=== PATIENT | female | born 1955 | race Caucasian/White ===

== ENCOUNTER → 2017-03-31 10:04 | Outpatient (CLI) | payer OTHER, SELFPAY ==
--- NOTE | 2017-03-31 10:10 | CT_ITS ---
CT sinus wo con CLINICAL INDICATION: ITS.REASON: RECURRENT MAXILLARY SINUSITIS ORDERING PHYSICIAN: Elver James MD PATIENT AGE: 61 years COMPARISON: 02/07/2012 TECHNIQUE:Axial, sagittal, and coronal images are generated and reviewed without contrast FINDINGS: There is mild mucosal thickening of the ethmoid sinuses bilaterally. Mild mucosal thickening involves the roof of the maxillary sinuses on both sides with mild narrowing of the ostiomeatal complexes. 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 There is narrowing of the right nasal canal from the marco bullosa and mild rightward nasal septal deviation inferiorly. The frontal sinuses unremarkable. There is minimal mucosal thickening of the sphenoid sinus posteriorly which could be due to a small retention cyst. No mastoid effusion. No sinus air-fluid level. The orbits are unremarkable The ethmoid opacification was worse on the previous study of 02/07/2012. The TMJs are unremarkable. IMPRESSION: Mild paranasal sinus disease in the ethmoid and maxillary sinuses as detailed above. 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
== END ==
PROVIDERS: Family Provider Internal Medicine Adolescent Medicine; PCP Internal Medicine Adolescent Medicine; Visit Provider Internal Medicine Adolescent Medicine
DX: J01.01 Acute recurrent maxillary sinusitis (principal)
CPT/HCPCS: 70486

== ENCOUNTER → 2017-06-06 16:30 | Outpatient (CLI) | payer OTHER, SELFPAY ==
--- NOTE | 2017-06-06 16:34 | NVE_ITS ---
Venous Exam Indications: 729.81 Swelling of limb. IMPRESSIONS 1. There is no evidence of significant Reflux. 2. No evidence of deep or superficial vein thrombosis involving the left lower extremity Left lower extremity venous duplex evaluation. Doppler flow study including spectral analysis, color and butt scale imaging. Location: Vascular laboratory. Patient status: Outpatient. CRITICAL FINDINGS - Reported to: SHE - Read back and verified. - 06/06/17 - 1645 - NONE Tables: Venous flow and imaging: + +-------+ + Location Overall Flow properties + +-------+ + Left common femoral Patent Normal phasicity; spontaneous; normal augmentation; compressible + +-------+ + Left saphenofemoral junction Patent Compressible + +-------+ + Left profunda femoral Patent Compressible + +-------+ + Left femoral Patent Normal phasicity; spontaneous; normal augmentation; compressible + +-------+ + Left greater saphenous Patent Normal phasicity; spontaneous; normal augmentation; compressible + +-------+ + Left popliteal Patent Normal phasicity; spontaneous; normal augmentation; compressible + +-------+ + Left posterior tibial Patent Compressible + +-------+ + Left peroneal Patent Compressible + +-------+ + Left gastrocnemius Patent Compressible + +-------+ + Left soleal Patent Compressible + +-------+ + (Report amended ) Electronically signed by: Stanley Villa [id number]
== END ==
PROVIDERS: PCP Internal Medicine Adolescent Medicine; Visit Provider Internal Medicine Adolescent Medicine
DX: R60.0 Localized edema (principal)
CPT/HCPCS: 93971

== ENCOUNTER 2017-08-21 13:00 | Outpatient (RCR) | payer OTHER, SELFPAY ==
--- NOTE | 2017-06-28 11:07 | HMH.PTOPWND ---
Rehab Outpt Wound Evaluation Rehab OP Wound Evaluation Start: 06/28/17 10:55 Freq: Status: Active Protocol: Document 06/28/17 10:55 ESTEPHANIA (Rec: 06/28/17 11:07 PHOMIGEL [id number]) Electronically Signed By Jayce Davies, PT 06/28/17 10:55 Subjective/History History History Pt presents with c/o left lower leg edema x 1-2 mos with insidious onset of symptoms. She reports significant pain with mild tingling and soreness when swelling is severe. She had left knee hemiarthroplasty ~ 6 mos ago. She reports edema decreased at night with LE elevation. She reports hx of HTN, DM, Asthma, right TKA 10 yrs ago, and current smoker. She also has recent onset of left lower leg petechiae of insidious onset. Subjective Subjective Currently no c/o pain, but 10/ 10 pain at worst when left LE is swollen. Also pain with stretching of left gastroc. Lymphedema Eval Classification of Lymphedema Secondary Lymphedema Yes Stage of Lymphedema Lymphedema stages Stage I (Pitting edema, reduces w/ elevation, no fibrosis) Skin Changes Dry Skin Yes Pain Scale Pain Scale (0-10) 10 Manual Lymphatic Drainage Treatment Area MLD Treatment Area Left Lower Extremity Wound Problems/Impairments Impairments Problems/Impairmments Palpation Tenderness Impaired Walking Increased Edema Subjective C/O Pain Impaired Self Care/Self Management Prognosis Rehab Potential Good Clinical Impression Consistent with Diagnosis Yes Short Term Goals Number of Weeks 4 Decreased Palpation Tenderness Yes: to min Decrease Subjective C/O Pain Yes: 7/10 at worst Patient to Understand Lymphedema Yes Treatment and Exercises Decrease Girth Measurments by (cm) Yes: by 5 cm Senior Care Goals Number of Weeks 8 Decreased Palpation Tenderness Yes: to none Decrease Subjective C/O Pain Yes: 4/10 at worst Patient to Adhere Lymphedema Precautions Yes Decrease Girth Measurments by (cm) Yes: by 10 cm Outpatient Therapy Plan of Care Treatment Plan May Include Therapeutic Exercise Including Home Yes
--- NOTE | 2017-08-10 11:34 | HMH.RHREAS ---
Rehab Reassessment Rehab OP Re-assessment Start: 08/09/17 14:48 Freq: Status: Active Protocol: Document 08/09/17 14:48 ESTEPHANIA (Rec: 08/09/17 14:57 PHOMIGEL [id number]) Electronically Signed By Jayce Davies, PT 08/09/17 14:48 Rehab Re-assessment Subjective Subjective Pt reports she feels better overall, but edema returned after a short illness and wearing compression socks less . Objective Objective Notes Cicumferential measurements: Left LE total = 277.4 cm, which is -1.3 cm overall. Assessment Progress Assessment Slower Than Expected Assessment Notes Pt has improved considerably with edema, but it does continue to fluctuate. Patient goals met ST,2,3 LT Goals Not Met ST LT,2,3,4 Revised Goals none Plan Plan Continue per intial POC. Frequency of Therapy 2x/wk Duration of therapy 8 wks Time and Billing Re-Eval Time 15 Re-Eval Billing Units 1 PHYSICIAN CERTIFICATION: I certify the specified therapy services for Salima Vu are required, authorized, and reviewed every 30 days.
== END 2017-08-21 13:01 | disposition home or self-care (01) ==
LOC: PT 13:00
PROVIDERS: Family Provider Internal Medicine Adolescent Medicine; PCP Internal Medicine Adolescent Medicine; Visit Provider Internal Medicine Adolescent Medicine
DX: R60.0 Localized edema (principal)
CPT/HCPCS: 97140; 97162; 97164; 97760

== ENCOUNTER → 2017-09-18 12:32 | Outpatient (CLI) | payer OTHER, SELFPAY ==
--- NOTE | 2017-09-18 12:33 | XR_ITS ---
XR foot wt bearing RT 3V HISTORY: ITS.REASON: flat foot ORDERING PHYSICIAN: Stella Tena DPM PATIENT AGE: 62 years COMPARISON: None FINDINGS: There is minimal hallux valgus with first metatarsophalangeal angle of 16 degrees. There is mild pes planus with a Mearys angle of -17 degrees. No fracture or dislocation. Small calcaneal spur is noted at 9 mm. IMPRESSION: Mild hallux valgus and pes planus
--- NOTE | 2017-09-18 12:33 | XR_ITS ---
XR foot wt bearing LT 3V HISTORY: ITS.REASON: flat foot ORDERING PHYSICIAN: Stella Tena DPM PATIENT AGE: 62 years COMPARISON: None FINDINGS: There is mild hallux valgus with first metatarsophalangeal angle of 25 degrees. There is pes planus with Mearys angle of -20 degrees. There is mild superior subluxation of the navicular with mild osteoarthritic changes of the talonavicular joint. There is a small calcaneal spur. IMPRESSION: Hallux valgus with pes planus
== END ==
PROVIDERS: Visit Provider Podiatrist
DX: M21.41 Flat foot [pes planus] (acquired), right foot (principal); M21.42 Flat foot [pes planus] (acquired), left foot
CPT/HCPCS: 73630

== ENCOUNTER → 2017-10-13 10:28 | Outpatient (POV) | payer OTHER, SELFPAY | PROVIDERS: Family Provider Internal Medicine Adolescent Medicine; Visit Provider Podiatrist | DX: Z00.00 Encounter for general adult medical examination without abnormal findings (principal) ==

== ENCOUNTER → 2018-04-02 08:29 | Outpatient (CLI) | payer OTHER, SELFPAY ==
--- NOTE | 2018-04-02 08:38 | CA_ITS ---
PROCEDURE: 2-D M-mode and color Doppler study INDICATIONS FOR THE TEST: Chest pain COPD Heart Murmur+ Tobacco Smoking+ Palpitations Fatigue Syncope Edema Hypertension+Diabetes Mellitus+ Rheumatic Fever SOB BETANCUR Obesity Hyperlipidemia Family History HD Additional History PATIENT INFORMATION HEIGHT: 64 WEIGHT:215 GENDER: Female B/P:132/62 2-D/M-MODE INTERPRETATION: 2-D MEASUREMENTS OBSERVED VALUES IN CMS Right Ventricular Dimension (RVDd) 2.3 Interventricular Septum (Thickness)(IVsd) 1.5 Left Ventricular Internal Dimensions(LVIDd) 4.7 Left Ventricular Posterior Wall (Thickness)(LVPWd) 0.8 Aortic Root 3.5 Aortic Cusp Separation 1.5 Left Atrial Dimensions (LAD) 3.7 2D 1. Left atrium is mildly enlarged, left ventricle is normal size, mild concentric left ventricular hypertrophy, visually estimated ejection fraction 55% with no regional wall motion abnormality. 2. The right atrium and right ventricle are normal size and contractility. 3. The aortic valve is thickened and calcified with mild restriction the leaflet mobility. 4. The mitral and tricuspid valve leaflets are minimally thickened. 5. The pulmonic valve is poorly visualized. 6. No significant pericardial effusion noted. DOPPLER INTERROGATION: The mean gradient across aortic valve is 13 mmHg, consistent with mild aortic stenosis, there is no aortic insufficiency. There is mild mitral and tricuspid regurgitation, tricuspid regurgitation jet velocity is inadequate for calculation of the right ventricular systolic pressure, grade 1 diastolic dysfunction seen with tissue Doppler evidence of raised left atrial pressure. CONCLUSION: 1. Mildly enlarged left atrium, normal left ventricular size, mild concentric left ventricular hypertrophy, visually estimated ejection fraction 55% with no regional wall motion abnormality, grade 1 diastolic dysfunction seen with tissue Doppler evidence of raised left atrial pressure. 2. Thickened and calcified aortic valve with mean gradient across valve of 13 mmHg represents mild aortic stenosis, there is no aortic insufficiency. 3. Mild mitral and tricuspid regurgitation 4. No significant pericardial effusion noted.
--- NOTE | 2018-04-02 09:22 | CT_ITS ---
CT lung screening EXAM: CT LUNG LOW DOSE WO CONTRAST HISTORY: 40 pack-year smoking history, asymptomatic for lung cancer ITS.REASON: CURRENT TOBACCO USE ORDERING PHYSICIAN: Joey Gomez MD PATIENT AGE: 62 years COMPARISON: None TECHNIQUE: The exam was performed on a GE Light Speed [address] scanner using 2.90 mGy CTDI. A low dose helical CT CHEST was performed on a multi-detector scanner. All CT scans at the facility use one or more dose reduction, viz: automated exposure control, ma/kV adjustment per patient size (including targeted exams where dose is matched to indication, i.e. head), or iterative reconstruction technique. The LDCT was performed in a facility that meets the criteria for the screening program. Data regarding this exam was submitted to ACR which is an approved registry. The order for this exam indicates that it came as a result of a lung cancer screening counseling shard decision-making visit that included all the elements required of such a visit including smoking cessation. The radiologist interpreting this exam meets the [facility] criteria for the LDCT lung cancer screening program. The exam is reported using the Lung-RADS classification scale and reported to the ACR registry. NOTE: This study was performed for the specific purposes of lung cancer screening and is not an alternative to diagnostic chest CT. RADIATION DOSE: CTDI vol(CT dose Index-volume) = 2.90mG DLP (Dose Length Product) = 109.56 mGcm FINDINGS: Noncalcified nodules are present which include 6 mm nodule in the right apex axial image #21,4 mm noncalcified nodule right upper lobe anteriorly axial image #29, 8 mm nodule right upper lobe laterally axial image #34, 5 mm right upper lobe anteriorly axial image #49, 5 mm nodule right upper lobe laterally axial image #39. Other smaller nodules noted on the right. 5 mm nodule lower upper lobe centrally along the major fissure. Calcified nodes present in the loli on the right and within the mediastinum. Coronary artery calcifications. Centrilobular emphysema with COPD. Mid thoracic scoliosis convex right IMPRESSION: 1. Lung RADS Category: 4, mildly suspicious with multiple noncalcified pulmonary nodules the largest in the right upper lobe at 8 mm 2. Other findings: Centrilobular emphysema, COPD, coronary artery disease, old granulomatous disease RECOMMENDATIONS: [address] chest without and with contrast
--- NOTE | 2018-04-02 09:22 | MM_ITS ---
MM Dig screening mamm BI w/CAD CAD Screening COMPARISON: Analog mammograms 11/04/2010 and digital mammograms with CAD 04/14/2015 INDICATION: There is a history of breast cancer in patient's mother diagnosed after menopause. There has been a previous cyst aspiration right breast. TECHNIQUE: Standard CC and MLO images were obtained. R2 CAD reviewed. FINDINGS: Moderate fibroglandular densities are seen in the central portions of both breast. There are few benign-appearing microcalcifications in each breast as noted previously. There is a stable low lying node near the axillary tail the right breast. There is no suspicious lesion and there are no suspicious microcalcifications. IMPRESSION: Fibrofatty parenchyma no suspicious lesion seen BI-RADS Category: 2 Benign Finding(s) RECOMMENDED FOLLOW-UP: 1YR - 1 YEAR FOLLOW-UP (A letter has been sent to the patient regarding results of the study.)
== END ==
PROVIDERS: PCP Internal Medicine Adolescent Medicine; Visit Provider Internal Medicine Adolescent Medicine
DX: Z12.31 Encounter for screening mammogram for malignant neoplasm of breast (principal); Z12.2 Encounter for screening for malignant neoplasm of respiratory organs; Z87.891 Personal history of nicotine dependence; R01.1 Cardiac murmur, unspecified; J01.00 Acute maxillary sinusitis, unspecified
CPT/HCPCS: 77067; 93306

== ENCOUNTER → 2018-04-05 10:08 | Outpatient (POV) | payer OTHER, SELFPAY | PROVIDERS: Visit Provider Podiatrist | DX: Z00.00 Encounter for general adult medical examination without abnormal findings (principal) ==

== ENCOUNTER → 2018-04-26 10:04 | Outpatient (POV) | payer OTHER, SELFPAY | PROVIDERS: Visit Provider Podiatrist | DX: Z00.00 Encounter for general adult medical examination without abnormal findings (principal) ==

== ENCOUNTER → 2018-07-13 08:50 | Outpatient (CLI) | payer MEDICARE, OTHER, SELFPAY ==
[2018-07-13 10:15] LABS: Blood Urea Nitrogen 10 mg/dL (7-18); Creatinine,Serum 0.84 mg/dL (0.55-1.02); Estimated Glomerular Filt Rate 68 ml/min (>60); GFR (African American) 82 ML/MIN (>60)
--- NOTE | 2018-07-13 10:17 | CT_ITS ---
CT chest wo/w con HISTORY: Follow-up abnormal chest CT, lung nodule, ITS.REASON: LUNG NODULE ORDERING PHYSICIAN: Elver James MD PATIENT AGE: 63 years COMPARISON: None Technique: Axial images obtained without and with 75 mL Optiray 350. Sagittal, and coronal reformatted images are also generated and reviewed. All CT scans at the facility use one or more dose reduction, viz: automated exposure control, ma/kV adjustment per patient size (including targeted exams where dose is matched to indication, i.e. head), or iterative reconstruction technique. FINDINGS: No mediastinal or hilar mass. Unenhanced images demonstrate coronary artery calcifications . Scattered small Francisco J present in the axilla. Normal heart size. No evidence of aortic aneurysm or dissection or pulmonary embolus. There are centrilobular emphysematous changes COPD. There are scattered noncalcified pulmonary nodules which are similar when compared to the CT scan of 04/02/2018. The largest nodules are in the right upper lobe. There are 2 nodules in the right upper lobe each measuring 6 mm. No new nodules are evident. No effusions or infiltrates. A 6 mm nodule is present in the right middle lobe as well unchanged. No central stranding lesions. No enhancing abnormalities. There are degenerative changes in the thoracic spine with thoracic scoliosis convex right and reversal of the normal lower thoracic lordosis. IMPRESSION: 1. COPD/centrilobular edema 2. Stable bilateral pulmonary nodules measuring up to 6 mm. Previously there was a nodule in the right upper lobe measuring approximately 8 mm now measuring 6 mm. Consider 6-12 month follow-up. 3. Coronary artery calcifications
== END ==
PROVIDERS: PCP Internal Medicine Adolescent Medicine; Visit Provider Internal Medicine Adolescent Medicine
DX: R91.1 Solitary pulmonary nodule (principal)
CPT/HCPCS: 36415; 71270; 82565; 84520; Q9967

== ENCOUNTER 2019-01-17 14:30 | Outpatient (RCR) | payer MEDICARE, OTHER, SELFPAY ==
--- NOTE | 2019-01-03 12:25 | HMH.PTOPEV ---
PT Outpatient Evaluation Rehab PT Outpatient Evaluation Start: 01/03/19 11:02 Freq: Status: Active Protocol: Document 01/03/19 11:35 [email or web address] (Rec: 01/03/19 12:24 PDESEROUX [id number]) Electronically Signed By Omar Chowdhury, PT 01/03/19 11:35 Outpatient Therapy Subjective History Subjective History Pt. is a 63 year old female who presents to outpatient PT for subacute complaints of R shoulder P! with insidious onset for 1 month. Pt. reports, excruciating P! when I lift my arm out to the side. Pt. reports some symptom relief with prescribed anti- inflammatories and steroid shot. Pt. denies having recent diagnostic imaging for current pathology. Pt. also denies numbness/tingling into RUE. Pt. RTMD 1 month from or earlier if need be. Current medications include Centrum, Bystolic, Meloxicam, Hydrochlorothiazide, Fexofenadine HCL, B12, Metformin, Nexium, Myrebetriq, Pravastatin, Hydroxyzine, Escitalopram, Advair, Proair, and Fluticasone Propionate. PMH includes Type II diabetes, HTN, Hypercholesterolemia, L Partial Knee Replacement, R TKA, and bilateral Carpal tunnel syndromes. Chief Complaint Pain Symptom Type Sharp,Stabbing Symptoms Relieved By Rest/Positioning,Ice, Prescription Meds Symptoms Aggravated By Lifting Prior Functional Limitations None Current Functional Limitations Reaching,Lifting,Housework, Dressing,Driving,Sleeping Symptom Description Constant but Variable Level of pain today (0-10) 3 Pain scale - at its best (0-10) 2 Pain scale - at its worst (0-10) 10 Cervical Eval Palpation Cervical Muscles R Upper Trapezius Cervical/Thoracic Palpation Findings Tenderness Flexibility Deficits Upper Trapezius Muscle Length (R) Severe Tightness Levaetor Scapulae Muscle Length (R) Severe Tightness Pectoralis Major Muscle Length (R) Severe Tightness Pectoralis Minor Muscle Length
== END 2019-02-12 15:00 | disposition home or self-care (01) ==
LOC: PT.CARL 14:30
PROVIDERS: PCP Internal Medicine Adolescent Medicine; Visit Provider Nurse Practitioner Family
DX: M75.51 Bursitis of right shoulder (principal)
CPT/HCPCS: 97014; 97033; 97035; 97110; 97140; 97163; G0283

== ENCOUNTER → 2019-03-27 09:53 | Outpatient (CLI) | payer MEDICARE, OTHER, SELFPAY ==
[2019-03-27 10:16] LABS: Blood Urea Nitrogen 12 mg/dL (7-18); Creatinine,Serum 0.75 mg/dL (0.55-1.02); Estimated Glomerular Filt Rate 78 ml/min (>60); GFR (African American) 94 ML/MIN (>60)
--- NOTE | 2019-03-27 10:17 | XR_ITS ---
PROCEDURE: XR DEXA AXIAL SKELETON CLINICAL HISTORY: POST MENOPAUSAL COMPARISON: No exams were available for comparison FINDINGS: The right hip density is 0.799 grams/centimeters sq with a T-score of -0.5. L1-L4 density is 1.21 grams/centimeters sq with a T-score of 1.5. IMPRESSION: Normal bone density Dictated by: Stanley Villa MD 03/27/2019 14:23 Electronically signed by Stanley Villa MD in [place] 03/27/2019 14:23
--- NOTE | 2019-03-27 10:19 | CT_ITS ---
PROCEDURE: CT CHEST WO/W CON CLINCAL INDICATION: PULMONARY NODULES Follow-up lung nodules, current smoker COMPARISON: LUNGSCREEN CT lung screening from 04/02/[address] chest wo/w con from 07/13/2018 TECHNIQUE: IV Contrast: 75ml Optiray 350 Axial images obtained with sagittal and coronal reformats. All CT scans at the facility use one or more dose reduction, viz: automated exposure control, ma/kV adjustment per patient size (including targeted exams where dose is matched to indication, i.e. head), or iterative reconstruction technique. FINDINGS: HEART,AORTA,PULMONARY ARTERIES coronary artery calcifications. No evidence of aortic aneurysm or pulmonary embolus. MEDIASTINAL AND HILAR STRUCTURES: No mediastinal or hilar mass evident. No dominant adenopathy. LUNGS: Paraseptal emphysematous change with COPD and scattered areas of scarring. There are scattered small bilateral pulmonary nodules as previously described. These nodules measure up to 6 mm in the right upper lobe and are not significantly changed. No new nodules are identified. No central obstructing lesions PLEURAL SPACES: No significant effusion. No evidence of pneumothorax. BONY STRUCTURES: S shaped scoliosis of the thoracic spine as before LYMPH NODES: There are scattered small mediastinal and axillary nodes which do not appear significantly changed UPPER ABDOMEN: Unremarkable. ADDITIONAL FINDINGS: No other significant abnormalities. IMPRESSION: Overall stable CT appearance of the chest. Scattered small bilateral pulmonary nodules once again noted not significantly changed. One year follow-up recommended Dictated by: Stanley Villa MD 03/28/2019 09:57 Electronically signed by Stanley Villa MD in [place] 03/28/2019 09:57
== END ==
PROVIDERS: PCP Internal Medicine Adolescent Medicine; Visit Provider Internal Medicine Adolescent Medicine
DX: R91.1 Solitary pulmonary nodule (principal); Z13.820 Encounter for screening for osteoporosis; Z78.0 Asymptomatic menopausal state
CPT/HCPCS: 36415; 71270; 77080; 82565; 84520; Q9967

== ENCOUNTER 2019-07-18 14:00 | Outpatient (RCR) | payer MEDICARE, OTHER, SELFPAY | END 2019-08-13 15:25 | disposition home or self-care (01) | LOC: PT.CARL 14:00 | PROVIDERS: PCP Internal Medicine Adolescent Medicine; Visit Provider Family Medicine Sports Medicine | DX: G57.02 Lesion of sciatic nerve, left lower limb (principal); M19.072 Primary osteoarthritis, left ankle and foot | CPT/HCPCS: 97014; 97110; 97140; 97163; 97164; G0283 ==

== ENCOUNTER → 2019-10-25 18:38 | Outpatient (CLI) | payer MEDICARE, OTHER, SELFPAY | PROVIDERS: PCP Internal Medicine Adolescent Medicine; Visit Provider Physician Assistant | DX: Z03.818 Encounter for observation for suspected exposure to other biological agents ruled out (principal) | CPT/HCPCS: U0003 ==

== ENCOUNTER → 2019-11-26 10:13 | Outpatient (CLI) | payer MEDICARE, OTHER, SELFPAY ==
--- NOTE | 2019-11-26 10:24 | XR_ITS ---
PROCEDURE: XR CHEST PORTABLE CLINICAL HISTORY: COVID OUT PATIENT TESTING COMPARISON: CR CXR CHEST(2 VIEWS-NOT PORTABLE) from 05/19/2016 CR CXR CHEST(2 VIEWS-NOT PORTABLE) from 06/20/2016 CR CXR CHEST(2 VIEWS-NOT PORTABLE) from 11/11/[address] CHEST WO/W CON from 03/27/2019 FINDINGS: The cardiomediastinal silhouette and pulmonary vascularity are within normal limits. Increased density is present in the left CP angle suggesting small effusion. PA and lateral chest may confirm. There is mild midthoracic curvature convex right. IMPRESSION: Possible small left effusion otherwise negative Dictated by: Stanley Villa MD 11/26/2019 11:36 Stanley Villa MD in [place] 11/26/2019 11:36
[2019-11-27 12:07] LABS: Covid-19 Nasal PCR Sendout Lex NOT DETECTED
== END ==
PROVIDERS: PCP Internal Medicine Adolescent Medicine; Visit Provider Internal Medicine Adolescent Medicine
DX: Z20.828 Contact with and (suspected) exposure to other viral communicable diseases (principal)
CPT/HCPCS: 71045; U0004

== ENCOUNTER → 2020-01-11 12:10 | Outpatient (CLI) | payer MEDICARE, OTHER, SELFPAY ==
[2020-01-11 16:06] LABS: Coronavirus 19 IgG Antibody Negative (Negative); Coronavirus 19 IgM Antibody Negative (Negative)
== END ==
PROVIDERS: Visit Provider Internal Medicine Gastroenterology
DX: Z01.818 Encounter for other preprocedural examination (principal); Z12.11 Encounter for screening for malignant neoplasm of colon
CPT/HCPCS: 36415; 86328

== ENCOUNTER 2020-01-13 12:25 | Day surgery (SDC) | payer MEDICARE, OTHER, SELFPAY ==
[2020-01-07 11:56] VITALS: BMI 34.5
[2020-01-13] VITALS (7 sets, daily range): BP systolic 117–136; BP diastolic 59–79; PULSE 82–93; RESP 16–18; TEMP 36.2–36.8; O2SAT 94–99
[2020-01-13 13:29] LABS: POC Glucose,Bedside 119 (70-110)
--- NOTE | 2020-01-13 14:02 | P.PN_ITS ---
[facility] Anesthesia Checklist - Patient Identification Patient Identification: Arm Band - Structural Data Admitted From: Home Planned Operative Procedure/s: colonoscopy Consent for Planned Operative Procedure(s) Verified: Yes Verified Documents: Surgical Consent, History and Physical - NPO Status Verified Time NPO: 00:00 - Additional verifications Anesthesia Reactions: No - Airway Assessment C-Spine Mobility Assessed: Yes (mp2) TMJ Mobility Assessed: Yes Dentition: Good Dentition - Neurological Assessment Level of Consciousness: Awake, Alert - Anesthesia Plan Anesthesia Risk discussed: Yes Anesthesia Plan: Verified ASA Class: III Anesthesia Type: MAC [facility] History I have reviewed the patient's past medical history: Yes Medical History: Reports:: Anxiety, Coronary Artery Disease, Diabetes Mellitus Type 2, Gastroesophageal Reflux Disease(GERD), Hyperlipidemia, Hypertension, Lung Disease (mario) Denies:: Cancer, Diabetes Mellitus Type 1, Internal Pacemaker, MRSA, Seizures *Have you ever received a pneumonia vaccine?: Yes *Have you received a flu vaccine this season?: Yes Anesthesia experience/problems:: nac Laterality Cases: Bilateral: Total Knee Replacement Other Surgeries: Yes: Cardiac Catheterization, Colonoscopy. No: Pacemaker Amputation: No Fractures: Yes (finger) - *Social History Last grade of school completed: Some college Smoking Status: Current every day smoker Tobacco Type: cigarettes # Packs/Day (cigarettes): 1 Alcohol Intake: never Alcohol Intake Frequency:: other Substance Use Type: denies use *Occupational Status:: retired Housing: house Household Members: spouse *Travel in the last 8 weeks: None Family Hx:: Cancer, Heart Attack, Hypertension
--- NOTE | 2020-01-13 14:28 | HMH.PROC ---
[facility] Procedure Note Procedure Note:: Colonoscopy Procedure Report: Colonoscopy with cold snare polypectomy Endoscopist: Gerson Carver II, MD Referring physician: Elver James M.D. Date of Procedure: January 13, 2020 Equipment: Olympus 180 variable stiffness pediatric colonoscope Sedation: MAC sedation Indication: Mrs. Vu is a 64-year-old female who is here for follow-up screening/surveillance colonoscopy. The patient does state that she had a colonoscopy 3 or 4 years ago at which time 6 or 7 colon polyps were removed. She reports no abdominal pain, weight loss, change in her bowel habits or rectal bleeding. She reports no family history of colon cancer. Procedure: Prior to the procedure, a history and physical exam was performed, and patient's medications and allergies were reviewed. The risks, benefits and alternatives of the sedation and procedure were discussed with the patient. All questions were answered and informed consent was obtained. The patient was brought to the procedure room. Patient identification and proposed procedure were verified by the physician and the nurse. The patient was placed in a left lateral decubitus position and the scope was passed under direct vision. Throughout the procedure, the patient's blood pressure, pulse, and oxygen saturations were monitored continuously. The colonoscopy was accomplished without difficulty. The patient tolerated the procedure well. Findings: On digital rectal examination there was normal rectal tone. There were no external hemorrhoids. The colonoscope was introduced through the anal canal to the rectum and advanced to the cecum. The ileocecal valve and appendiceal orifice were identified. The scope was advanced a short distance into the ileum which appeared grossly normal. The scope was then withdrawn into the colon. There was a single 3 to 4 mm rectosigmoid polyp removed via cold snare polypectomy. The remaining cecum, ascending, transverse, descending, sigmoid and rectum were grossly normal. There were no other mucosal abnormalities identified. Upon retroflexion within the rectum there were grade 1 internal hemorrhoids.The preparation was excellent throughout with Lucinda Preparation Score of 9. The cecal time was 10 minutes. Impression: 1. Diminutive rectosigmoid polyp 2. Grade 1 internal hemorrhoids Plan: I will follow up the polyp pathology and recommend repeat colonoscopy again in 7-10 years based upon the polyp histology. I would encourage bulk fiber supplementation on a long-term daily maintenance basis.
== END 2020-01-13 15:20 | disposition home or self-care (01) ==
LOC: OUTP 12:26
PROVIDERS: PCP Internal Medicine Adolescent Medicine; Visit Provider Internal Medicine Gastroenterology
PROC: 0DJD8ZZ Inspection of Lower Intestinal Tract, Via Natural or Artificial Opening Endoscopic (ICD-10-PCS; CPT 45378; principal; 2020-01-13 13:30)
DX: Z12.11 Encounter for screening for malignant neoplasm of colon (principal); Z86.010 Personal history of colon polyps; K63.5 Polyp of colon; K64.0 First degree hemorrhoids; E11.9 Type 2 diabetes mellitus without complications; I10 Essential (primary) hypertension; E78.5 Hyperlipidemia, unspecified; I25.10 Atherosclerotic heart disease of native coronary artery without angina pectoris; G47.33 Obstructive sleep apnea (adult) (pediatric); F41.9 Anxiety disorder, unspecified; F32.9 Major depressive disorder, single episode, unspecified; K21.9 Gastro-esophageal reflux disease without esophagitis
CPT/HCPCS: 45385; 82962; 88305

== ENCOUNTER 2020-02-12 11:07 | Outpatient (CLI) | payer MEDICARE, OTHER, SELFPAY ==
[2020-02-12] VITALS (9 sets, daily range): BP systolic 142–165; BP diastolic 79–93; PULSE 78–82; RESP 16; TEMP 36.6; O2SAT 92–93
== END 2020-02-12 14:15 | disposition home or self-care (01) ==
LOC: COVID.OUT 11:08 → INF 11:14
PROVIDERS: PCP Internal Medicine Adolescent Medicine; Visit Provider Internal Medicine Adolescent Medicine
DX: U07.1 COVID-19 (principal)
CPT/HCPCS: 96365

== ENCOUNTER → 2020-02-21 12:58 | Outpatient (CLI) | payer MEDICARE, OTHER, SELFPAY ==
[2020-02-21 13:37] LABS: Basophils % 0.4 % (0.1-2.0); Eosinophils # 0.3 K/mm3 (0.0-0.4); Eosinophils % 3.1 % (0.1-12.0); Hematocrit 44.9 % (37.0-47.0); Lymphocytes # 3.3 K/mm3 (0.7-4.5); Lymphocytes % 31.7 % (10-50); Mean Corpuscular HGB Conc 33.4 g/dL (31.8-35.4); Mean Corpuscular Hemoglobin 29.4 pg (27.0-31.2); Mean Corpuscular Volume 88.1 fl (81-99); Mean Platelet Volume 7.4 fl (7.4-10.4); Monocytes # 0.6 K/mm3 (0.1-1.0); Monocytes % 5.4 % (1.7-9.3); Neutrophils # 6.1 K/mm3 (1.8-7.8); Neutrophils % 59.5 % (37.0-80.0); Platelet Count 246 K/mm3 (142-424); Red Blood Count 5.09 M/mm3 (4.20-5.40); Red Cell Distribution Width 14.4 % (11.5-17.5); White Blood Count 10.3 K/mm3 (4.8-10.8)
[2020-02-21 13:42] LABS: Chloride 99 mmol/L (98-107); Potassium 3.3 mmoL/L (3.5-5.1); Sodium 138 mmol/L (136-145)
[2020-02-21 13:45] LABS: Alanine Aminotransferase 37 U/L (12-78); Albumin Level 4.2 g/dl (3.5-5.0); Albumin/Globulin Ratio 1.4 (1.1-1.8); Alkaline Phosphatase 85 U/L (38-126); Anion Gap 7.3 mEq/L (5-15); Aspartate Amino Transferase 37 U/L (14-36); Bilirubin,Total 0.8 mg/dl (0.2-1.3); Blood Urea Nitrogen 20 mg/dl (7-17); Calcium 8.9 mg/dl (8.4-10.2); Carbon Dioxide 35 mmol/L (22.0-30.0); Estimated Glomerular Filt Rate 84 ml/min (>60); GFR (African American) 101 ML/MIN (>60); Glucose 127 mg/dl (74-100); Total Protein,Serum 7.2 g/dl (6.3-8.2)
== END ==
PROVIDERS: Visit Provider Nurse Practitioner Family
DX: U07.1 COVID-19 (principal); R53.1 Weakness
CPT/HCPCS: 36415; 80053; 85025

== ENCOUNTER → 2020-03-31 07:53 | Outpatient (CLI) | payer MEDICARE, OTHER, SELFPAY ==
--- NOTE | 2020-03-31 07:58 | CT_ITS ---
PROCEDURE: CT LUNG SCREENING CLINICAL INDICATION: H/O NICOTINE DEPENDENCE Current smoker 35 pack year smoking history Prior 04/02/18 COMPARISON: CT CT CHEST WO/W CON from 03/27/2019 TECHNIQUE: The exam was performed on a [employer] Light Speed [address] scanner using 2.90 mGy CTDI. A low dose helical CT CHEST was performed on a multi-detector scanner. All CT scans at the facility use one or more dose reduction, viz: automated exposure control, ma/kV adjustment per patient size (including targeted exams where dose is matched to indication, i.e. head), or iterative reconstruction technique. The LDCT was performed in a facility that meets the criteria for the screening program. Data regarding this exam was submitted to ACR which is an approved registry. The order for this exam indicates that it came as a result of a lung cancer screening counseling shard decision-making visit that included all the elements required of such a visit including smoking cessation. The radiologist interpreting this exam meets the CMS criteria for the LDCT lung cancer screening program. The exam is reported using the Lung-RADS classification scale and reported to the ACR registry. NOTE: This study was performed for the specific purposes of lung cancer screening and is not an alternative to diagnostic chest CT. RADIATION DOSE: CTDI vol(CT dose Index-volume) = 2.90mG DLP (Dose Length Product) = 104.46 mGcm FINDINGS: Scattered small pulmonary nodules are once again noted overall not significantly changed. No new suspicious nodules identified. Changes of COPD with scattered areas of scarring and bronchial thickening with evidence of old granulomatous disease. OTHER FINDINGS: Coronary artery calcifications. Mitral valve calcifications. Thoracic scoliosis convex right IMPRESSION: Lung-RADS Category 2 Benign Appearance or Behavior Follow-up: Continue annual screening with LDCT in 12 months Dictated by: Stanley Villa MD 04/05/2020 11:07 Stanley Villa MD in [place] 04/05/2020 11:07
== END ==
PROVIDERS: PCP Internal Medicine Adolescent Medicine; Visit Provider Internal Medicine Adolescent Medicine
DX: Z87.891 Personal history of nicotine dependence (principal); Z12.2 Encounter for screening for malignant neoplasm of respiratory organs
CPT/HCPCS: 71271

== ENCOUNTER → 2020-08-07 08:45 | Outpatient (CLI) | payer MEDICARE, OTHER, SELFPAY ==
--- NOTE | 2020-08-07 09:20 | MM_ITS ---
PROCEDURE INFORMATION: Exam: MG Screening 3D Mammography Exam date and time: 08/07/2020 9:20 AM Age: 65 years old Clinical indication: Encounter for screening mammogram for malignant neoplasm of breast TECHNIQUE: Imaging protocol: Screening tomosynthesis and 2D mammography including computer-aided detection (CAD) when performed. COMPARISON: 1. MG SCBI MM Dig screening mamm BI w/CAD 04/02/2018 9:46 AM 2. MG DMSB DIG MAMM-SCREEN ROB 04/14/2015 3:57 PM FINDINGS: MAMMOGRAPHY: Breast composition: The breast tissue is composed of scattered areas of fibroglandular density. Mass: None. Architectural distortion: None. Calcifications: No suspicious calcifications. Asymmetric density: None. Skin thickening: None. Axillary adenopathy: None. IMPRESSION: No mammographic evidence of malignancy. Annual screening is recommended unless otherwise clinically indicated. ASSESSMENT: BI-RADS Category 1: Negative
[2020-08-07 15:40] LABS: Basophils # 0.1 K/mm3 (0-0.2); Basophils % 0.9 % (0.1-2.0); Eosinophils # 0.4 K/mm3 (0.0-0.4); Eosinophils % 5.5 % (0.1-12.0); Hematocrit 43.2 % (37.0-47.0); Hemoglobin 13.7 g/dL (12.2-16.2); Lymphocytes # 2.5 K/mm3 (0.7-4.5); Lymphocytes % 33.8 % (10-50); Mean Corpuscular HGB Conc 31.8 g/dL (31.8-35.4); Mean Corpuscular Hemoglobin 28.4 pg (27.0-31.2); Mean Corpuscular Volume 89.2 fl (81-99); Mean Platelet Volume 7.9 fl (7.4-10.4); Monocytes # 0.6 K/mm3 (0.1-1.0); Monocytes % 7.5 % (1.7-9.3); Neutrophils # 3.9 K/mm3 (1.8-7.8); Neutrophils % 52.3 % (37.0-80.0); Platelet Count 253 K/mm3 (142-424); Red Blood Count 4.84 M/mm3 (4.20-5.40); Red Cell Distribution Width 13.9 % (11.5-17.5); White Blood Count 7.5 K/mm3 (4.8-10.8)
[2020-08-07 15:44] LABS: Alanine Aminotransferase 24 U/L (12-78); Albumin Level 4.2 g/dl (3.5-5.0); Albumin/Globulin Ratio 1.5 (1.1-1.8); Alkaline Phosphatase 79 U/L (38-126); Anion Gap 10.8 mEq/L (5-15); Aspartate Amino Transferase 31 U/L (14-36); Bilirubin,Total 0.6 mg/dl (0.2-1.3); Blood Urea Nitrogen 19 mg/dl (7-17); Calcium 8.9 mg/dl (8.4-10.2); Carbon Dioxide 31 mmol/L (22.0-30.0); Chloride 102 mmol/L (98-107); Chol/HDL Ratio 3.4 (1-3.5); Cholesterol 133 mg/dl (140-200); Estimated Glomerular Filt Rate 83 ml/min (>60); GFR (African American) 101 ML/MIN (>60); Globulin 2.8 g/dL (1.3-3.2); Glucose 107 mg/dl (74-100); HDL Cholesterol 39 mg/dl (40-60); Potassium 3.8 mmoL/L (3.5-5.1); Sodium 140 mmol/L (136-145); Triglycerides 109 mg/dl (30-150); VLDL Cholesterol 22 mg/dL (0-40)
[2020-08-07 15:55] LABS: Direct LDL Cholesterol 80.36 mg/dL (100-129)
[2020-08-07 16:15] LABS: Thyroid Stimulating Hormone 4.17 uIU/mL (0.465-4.68)
[2020-08-07 16:33] LABS: Vitamin B12 967 pg/mL (239-931)
== END ==
PROVIDERS: PCP Internal Medicine Adolescent Medicine; Visit Provider Internal Medicine Adolescent Medicine
DX: Z12.31 Encounter for screening mammogram for malignant neoplasm of breast (principal); E11.9 Type 2 diabetes mellitus without complications; G60.9 Hereditary and idiopathic neuropathy, unspecified; Z79.84 Long term (current) use of oral hypoglycemic drugs
CPT/HCPCS: 36415; 77063; 77067; 80053; 80061; 82607; 84443; 85025

== ENCOUNTER → 2020-11-12 08:38 | Outpatient (CLI) | payer MEDICARE, OTHER, SELFPAY ==
[2020-11-12 09:12] LABS: Basophils % 0.5 % (0.1-2.0); Eosinophils # 0.4 K/mm3 (0.0-0.4); Eosinophils % 5.3 % (0.1-12.0); Hemoglobin 14.5 g/dL (12.2-16.2); Lymphocytes # 2.3 K/mm3 (0.7-4.5); Lymphocytes % 30.6 % (10-50); Mean Corpuscular HGB Conc 33.7 g/dL (31.8-35.4); Mean Corpuscular Hemoglobin 29.8 pg (27.0-31.2); Mean Corpuscular Volume 88.2 fl (81-99); Monocytes # 0.4 K/mm3 (0.1-1.0); Neutrophils # 4.4 K/mm3 (1.8-7.8); Neutrophils % 58.6 % (37.0-80.0); Platelet Count 255 K/mm3 (142-424); Red Blood Count 4.87 M/mm3 (4.20-5.40); Red Cell Distribution Width 14.3 % (11.5-17.5); White Blood Count 7.5 K/mm3 (4.8-10.8)
[2020-11-12 09:31] LABS: Hemoglobin A1C 4.7 % (4.0-6.0)
[2020-11-12 09:33] LABS: Activated Partial Thrombo Time 28.2 seconds (22.8-30.6); Prothrombin Time 10.7 seconds (10.1-12.5)
[2020-11-12 09:37] LABS: Chloride 100 mmol/L (98-107); Potassium 3.9 mmoL/L (3.5-5.1); Sodium 142 mmol/L (136-145)
[2020-11-12 09:40] LABS: Alanine Aminotransferase 20 U/L (12-78); Albumin/Globulin Ratio 1.4 (1.1-1.8); Alkaline Phosphatase 69 U/L (38-126); Anion Gap 13.9 mEq/L (5-15); Aspartate Amino Transferase 30 U/L (14-36); Bilirubin,Total 0.4 mg/dl (0.2-1.3); Blood Urea Nitrogen 16 mg/dl (7-17); Calcium 9.1 mg/dl (8.4-10.2); Carbon Dioxide 32 mmol/L (22.0-30.0); Chol/HDL Ratio 3.4 (1-3.5); Cholesterol 141 mg/dl (140-200); Estimated Glomerular Filt Rate 100 ml/min (>60); GFR (African American) 121 ML/MIN (>60); Globulin 2.8 g/dL (1.3-3.2); Glucose 103 mg/dl (74-100); HDL Cholesterol 42 mg/dl (40-60); Total Protein,Serum 6.8 g/dl (6.3-8.2); Triglycerides 111 mg/dl (30-150); VLDL Cholesterol 22 mg/dL (0-40)
== END ==
PROVIDERS: Visit Provider Internal Medicine Adolescent Medicine
DX: E11.9 Type 2 diabetes mellitus without complications (principal); H21.02 Hyphema, left eye; Z79.84 Long term (current) use of oral hypoglycemic drugs; Z51.81 Encounter for therapeutic drug level monitoring
CPT/HCPCS: 36415; 80053; 80061; 83036; 85025; 85610; 85730

== ENCOUNTER → 2021-02-16 19:36 | Outpatient (CLI) | payer MEDICARE, OTHER, SELFPAY ==
[2021-02-16 20:05] LABS: Basophils # 0.1 K/mm3 (0-0.2); Basophils % 1.2 % (0.1-2.0); Eosinophils # 0.6 K/mm3 (0.0-0.4); Eosinophils % 6.5 % (0.1-12.0); Hematocrit 44.2 % (37.0-47.0); Hemoglobin 14.9 g/dL (12.2-16.2); Lymphocytes # 2.7 K/mm3 (0.7-4.5); Lymphocytes % 30.5 % (10-50); Mean Corpuscular HGB Conc 33.8 g/dL (31.8-35.4); Mean Corpuscular Hemoglobin 30.4 pg (27.0-31.2); Mean Corpuscular Volume 89.9 fl (81-99); Mean Platelet Volume 9.9 fl (7.4-10.4); Monocytes # 0.5 K/mm3 (0.1-1.0); Monocytes % 6.2 % (1.7-9.3); Neutrophils # 4.8 K/mm3 (1.8-7.8); Neutrophils % 55.5 % (37.0-80.0); Platelet Count 278 K/mm3 (142-424); Red Blood Count 4.92 M/mm3 (4.20-5.40); Red Cell Distribution Width 13.6 % (11.5-17.5); White Blood Count 8.7 K/mm3 (4.8-10.8)
[2021-02-16 21:16] LABS: Chloride 100 mmol/L (98-107)
[2021-02-16 21:17] LABS: Potassium 4.1 mmoL/L (3.5-5.1); Sodium 139 mmol/L (136-145)
[2021-02-16 21:19] LABS: Blood Urea Nitrogen 12 mg/dl (7-17); Estimated Glomerular Filt Rate 100 ml/min (>60); GFR (African American) 121 ML/MIN (>60)
[2021-02-16 21:20] LABS: Alanine Aminotransferase 24 U/L (12-78); Albumin Level 4.3 g/dl (3.5-5.0); Albumin/Globulin Ratio 1.7 (1.1-1.8); Alkaline Phosphatase 82 U/L (38-126); Anion Gap 11.1 mEq/L (5-15); Aspartate Amino Transferase 37 U/L (14-36); Bilirubin,Total 0.3 mg/dl (0.2-1.3); Calcium 9.4 mg/dl (8.4-10.2); Carbon Dioxide 32 mmol/L (22.0-30.0); Globulin 2.6 g/dL (1.3-3.2); Glucose 89 mg/dl (74-100); Total Protein,Serum 6.9 g/dl (6.3-8.2)
[2021-02-16 21:30] LABS: Hemoglobin A1C 5.5 % (4.0-6.0)
== END ==
PROVIDERS: Visit Provider Internal Medicine Adolescent Medicine
DX: E11.9 Type 2 diabetes mellitus without complications (principal); G60.9 Hereditary and idiopathic neuropathy, unspecified; Z79.84 Long term (current) use of oral hypoglycemic drugs
CPT/HCPCS: 80053; 83036; 85025

== ENCOUNTER → 2021-06-09 08:23 | Outpatient (CLI) | payer MEDICARE, OTHER, SELFPAY ==
--- NOTE | 2021-06-09 08:26 | CT_ITS ---
FINAL REPORT CLINICAL HISTORY: H/O NICOTINE DEPENDENCE smoker, 1/2 ppd x 40 years off and on. COPD COMPARISON: April 02, 2018 and March 31, 2020 FINDINGS: Low-Dose Chest CT CTDI vol (mGy): 2.90 DLP (mGy-cm): 98.73 Axial images were obtained from the lung apex to the mid abdomen by computed tomography. Low-dose protocol was utilized. FINDINGS: CHEST: There are calcified right paratracheal and right hilar lymph nodes. There is no axillary adenopathy. There is no mediastinal adenopathy. The heart is proper size. There is no pericardial or pleural effusion. Limited images of the upper abdomen are unremarkable. Lung window images demonstrate again noted multiple noncalcified pulmonary nodules in the right upper lobe measuring up to 5 mm and well seen on image 16 of series 3. There is a more peripheral focus also measuring 5 mm well seen on image 29 of series 3. There are other smaller scattered nodules, all of which are stable as compared to 2019. No new masses are seen. IMPRESSION: Redemonstration of stable nodules measuring up to 5 mm in the right upper lobe. Lung RADS category 2. Recommend 12 month follow-up low-dose chest CT. Reviewed, Interpreted and Dictated by Ernie Chun MD Transcribed by Goldie Venegas Authenticated by Ernie Chun MD on 06/09/2021 10:28:59 AM [facility]
== END ==
PROVIDERS: PCP Internal Medicine Adolescent Medicine; Visit Provider Internal Medicine Adolescent Medicine
DX: Z87.891 Personal history of nicotine dependence (principal); Z12.2 Encounter for screening for malignant neoplasm of respiratory organs
CPT/HCPCS: 71271

== ENCOUNTER → 2021-09-21 10:33 | Outpatient (CLI) | payer MEDICARE, OTHER, SELFPAY ==
--- NOTE | 2021-09-21 10:37 | MM_ITS ---
PROCEDURE INFORMATION: Exam: MG Bilateral Screening 3D Mammography Exam date and time: 09/21/2021 10:49 AM Age: 66 years old Clinical indication: Screening examination TECHNIQUE: Imaging protocol: Bilateral Screening tomosynthesis and 2D mammography including computer-aided detection (CAD) when performed. COMPARISON: 1. MG MM DIG SCREENING MAMM BI W/CAD 08/07/2020 9:20 AM 2. MG SCBI MM Dig screening mamm BI w/CAD 04/02/2018 9:46 AM FINDINGS: MAMMOGRAPHY: Breast composition: The breasts are heterogeneously dense, which may obscure small masses. Mass: None. Architectural distortion: None. Calcifications: No suspicious calcifications. Asymmetric density: None. Skin thickening: None. Axillary adenopathy: None. IMPRESSION: No mammographic evidence of malignancy. Annual screening is recommended unless otherwise clinically indicated. ASSESSMENT: BI-RADS Category 1: Negative
== END ==
PROVIDERS: PCP Internal Medicine Adolescent Medicine; Visit Provider Internal Medicine Adolescent Medicine
DX: Z12.31 Encounter for screening mammogram for malignant neoplasm of breast (principal)
CPT/HCPCS: 77063; 77067

== ENCOUNTER → 2021-09-29 14:43 | Outpatient (CLI) | payer MEDICARE, OTHER, SELFPAY ==
--- NOTE | 2021-09-29 14:48 | XR_ITS ---
FINAL REPORT CLINICAL HISTORY: Pt had partial Lt knee replacement x 1-2 yrs ago. Pain @ patellar region x 1 wk since twisting leg FINDINGS: LEFT KNEE 3 views of the left knee were obtained. There is postoperative change from medial hemiarthroplasty. There is no acute fracture. There are osteophytes along the undersurface of the patella. There is some mild sclerosis of the lateral femoral condyle and lateral tibial plateau. There is a minimal joint effusion. IMPRESSION: Minimal joint effusion with no acute bony abnormality. Reviewed, Interpreted and Dictated by Ernie Chun MD Transcribed by Goldie Venegas Authenticated and [facility]
--- NOTE | 2021-09-29 14:48 | XR_ITS ---
FINAL REPORT CLINICAL HISTORY: Pt twisted Lt leg x 1 wk ago, pain @ Lt knee radiating down FINDINGS: LEFT TIBIA FIBULA 2 views were obtained. There are postoperative changes from medial hemiarthroplasty. There is no acute fracture or dislocation. There are small osteophytes along the undersurface of the patella. There is no soft tissue abnormality. IMPRESSION: No acute bony abnormality. Reviewed, Interpreted and Dictated by Ernie Chun MD Transcribed by Goldie Venegas Authenticated and [facility]
--- NOTE | 2021-09-29 14:48 | XR_ITS ---
FINAL REPORT CLINICAL HISTORY: Pt twisted Lt leg x 1 wk ago, pain @ knee radiating down FINDINGS: LEFT ANKLE Three views demonstrate no acute fracture or dislocation. The visualized joint spaces are normally aligned. The mortise is intact. There is a moderate plantar spur. The soft tissues are unremarkable. IMPRESSION: No acute bony abnormality. Reviewed, Interpreted and Dictated by Ernie Chun MD Transcribed by Goldie Venegas Authenticated and [facility]
== END ==
PROVIDERS: PCP Internal Medicine Adolescent Medicine; Visit Provider Internal Medicine Adolescent Medicine
DX: M25.562 Pain in left knee (principal); M21.969 Unspecified acquired deformity of unspecified lower leg; M25.572 Pain in left ankle and joints of left foot
CPT/HCPCS: 73562; 73590; 73610

== ENCOUNTER 2021-10-01 11:38 | Outpatient (RCR) | payer MEDICARE, OTHER, SELFPAY | END 2021-10-01 12:20 | disposition home or self-care (01) | LOC: PT 11:38 | PROVIDERS: Visit Provider Orthopaedic Surgery | DX: M25.572 Pain in left ankle and joints of left foot (principal) | CPT/HCPCS: 97760 ==

== ENCOUNTER → 2021-10-08 12:55 | Outpatient (CLI) | payer MEDICARE, OTHER, SELFPAY ==
--- NOTE | 2021-10-08 12:55 | MR_ITS ---
FINAL REPORT CLINICAL HISTORY: LEFT knee pain, PT STATES SHE TWISTED KNEE WRONG, PARTIAL KNEE REPLACEMENT DONE FINDINGS: Multiplanar MR imaging of the left knee was performed without contrast. There are postoperative changes from medial compartment arthroplasty which obscures much of the detail in this region. There is a tear of the anterior horn and body of the lateral meniscus. The anterior and posterior cruciate ligaments are obscured. The medial collateral ligament is obscured. The lateral collateral ligamentous complex appears intact. The patellar and quadriceps tendons are intact. 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 There are subchondral cysts in the lateral femoral condyle and lateral tibial plateau measuring up to 2.2 cm. There is a cystic mass in the proximal tibia, may represent a large subchondral cyst. Small joint effusion is seen. The musculature is intact. No soft tissue mass or cyst is identified. IMPRESSION: Tear of the anterior horn and body of the lateral meniscus. Postoperative changes as detailed above. Degenerative change and chondromalacia. Reviewed, Interpreted and Dictated by Topher Richardson III, MD Transcribed by Nadja Kim Authenticated and [facility][1]
== END ==
PROVIDERS: PCP Internal Medicine Adolescent Medicine; Visit Provider Orthopaedic Surgery
DX: M25.562 Pain in left knee (principal); Z96.652 Presence of left artificial knee joint
CPT/HCPCS: 73721

== ENCOUNTER → 2022-03-03 20:14 | Outpatient (CLI) | payer MEDICARE, OTHER, SELFPAY | PROVIDERS: PCP Internal Medicine Adolescent Medicine; Visit Provider Specialist | DX: G47.31 Primary central sleep apnea (principal); G47.34 Idiopathic sleep related nonobstructive alveolar hypoventilation | CPT/HCPCS: 95811 ==

== ENCOUNTER → 2022-05-30 12:39 | Outpatient (CLI) | payer MEDICARE, OTHER, SELFPAY ==
[2022-05-30 13:45] VITALS: PULSE 74; PULSE 82
== END ==
PROVIDERS: PCP Internal Medicine Adolescent Medicine; Visit Provider Nurse Practitioner Family
DX: G47.34 Idiopathic sleep related nonobstructive alveolar hypoventilation (principal); Z72.0 Tobacco use
CPT/HCPCS: 94060; 94618; 94640; 94727; 94729

== ENCOUNTER → 2022-06-27 09:18 | Outpatient (CLI) | payer MEDICARE, OTHER, SELFPAY | PROVIDERS: PCP Internal Medicine Adolescent Medicine; Visit Provider Internal Medicine Adolescent Medicine | DX: R01.1 Cardiac murmur, unspecified (principal) | CPT/HCPCS: 93306 ==

== ENCOUNTER → 2022-06-30 15:23 | Outpatient (CLI) | payer MEDICARE, OTHER, SELFPAY ==
--- NOTE | 2022-06-30 15:27 | CT_ITS ---
FINAL REPORT TECHNIQUE: Axial images were obtained from the lung apex to the mid abdomen by computed tomography. This study was performed with techniques to keep radiation doses as low as reasonably achievable (ALARA). Individualized dose reduction techniques using automated exposure control or adjustment of mA and/or kV according to the patient's size were employed. CLINICAL HISTORY: H/O TOBACCO USE, smokes less than 1 pk per day for 40+ yrs, has COPD, exposed to second hand smoke COMPARISON: 06/09/2021 and 03/31/2020 FINDINGS: CHEST CT LOW DOSE CTDI vol (mGy): 2.90 DLP (mGy-cm): 103.68 There is no axillary adenopathy. There is no hilar or mediastinal adenopathy. The heart is normal in size. There is no pericardial or pleural effusion. Again identified are multiple small bilateral pulmonary nodules measuring up to 5 mm. There is a stable right upper lobe nodule measuring 5 mm well seen on image 31. No new mass or nodule is identified. Limited images of the upper abdomen are unremarkable. IMPRESSION: Stable nodules as detailed above. Lung RADS category 1. Recommend 12 month follow-up low-dose chest CT. Reviewed, Interpreted and Dictated by Topher Richardson III, MD Transcribed by Nadja Kim Authenticated and [facility]
== END ==
PROVIDERS: PCP Internal Medicine Adolescent Medicine; Visit Provider Internal Medicine Adolescent Medicine
DX: Z87.891 Personal history of nicotine dependence (principal); Z12.2 Encounter for screening for malignant neoplasm of respiratory organs
CPT/HCPCS: 71271

== ENCOUNTER 2022-08-25 11:00 | Outpatient (RCR) | payer MEDICARE, OTHER, SELFPAY | END 2022-09-21 17:40 | disposition home or self-care (01) | LOC: PT 11:00 | PROVIDERS: PCP Internal Medicine Adolescent Medicine; Visit Provider Orthopaedic Surgery | DX: M25.562 Pain in left knee (principal); Z96.652 Presence of left artificial knee joint | CPT/HCPCS: 94762; 97010; 97014; 97110; 97116; 97140; 97163; 97164; 97530; G0283 ==

== ENCOUNTER → 2022-10-18 12:50 | Outpatient (CLI) | payer MEDICARE, OTHER, SELFPAY ==
--- NOTE | 2022-10-18 12:54 | MM_ITS ---
PROCEDURE INFORMATION: Exam: MG Bilateral Screening 3D Mammography Exam date and time: 10/18/2022 12:51 PM Age: 67 years old Clinical indication: Screening examination; Family history of breast cancer in mother; Mother's age: 50 years TECHNIQUE: Imaging protocol: Bilateral Screening tomosynthesis and 2D mammography including computer-aided detection (CAD) when performed. COMPARISON: 1. MG MM DIG SCREENING MAMM BI W/CAD 09/21/2021 10:49 AM 2. MG MM DIG SCREENING MAMM BI W/CAD 08/07/2020 9:20 AM 3. MG SCBI MM Dig screening mamm BI w/CAD 04/02/2018 9:46 AM 4. MG DMSB DIG MAMM-SCREEN ROB 04/14/2015 3:57 PM FINDINGS: MAMMOGRAPHY: Breast composition: The breasts are heterogeneously dense, which may obscure small masses. Mass: None. Architectural distortion: None. Calcifications: No suspicious calcifications. Asymmetric density: None. Skin thickening: None. Axillary adenopathy: Stable borderline dense, prominent, bilateral axillary lymph nodes since 2015. IMPRESSION: No mammographic evidence of malignancy. Annual screening is recommended unless otherwise clinically indicated. ASSESSMENT: BI-RADS Category 2: Benign
== END ==
PROVIDERS: PCP Internal Medicine Adolescent Medicine; Visit Provider Internal Medicine Adolescent Medicine
DX: Z12.31 Encounter for screening mammogram for malignant neoplasm of breast (principal)
CPT/HCPCS: 77063; 77067

== ENCOUNTER 2023-07-03 12:43 | Outpatient (CLI) | payer MEDICARE, OTHER, SELFPAY ==
[2023-07-03 13:40] VITALS: PULSE 76; PULSE 80
[2023-07-03] MEDS: ALBUTEROL 0.083% 2.5 MG/3 ML NEB IH (13:40)
--- NOTE | 2023-07-03 14:08 | CT_ITS ---
FINAL REPORT TECHNIQUE: Thin section axial images were obtained from the lung apices to the upper abdomen by computed tomography. Reformatted images were obtained and reviewed. This study was performed with techniques to keep radiation doses al low as reasonably achievable (ALARA). Individualized dose reduction techniques using automated exposure control or adjustment of mA and/or kV according to the patient's size were employed. CLINICAL HISTORY: lung cancer screening current smoker 1/2ppd x50 years COMPARISON: 06/30/2022 FINDINGS: CHEST CT LOW DOSE 68-year-old female, current smoker, [id number] history. CTDI vol (mGy): 2.9 DLP (mGy-cm): 99.77 There is no axillary adenopathy. There is no mediastinal or hilar mass or adenopathy. The heart is normal in size. There is no pericardial or pleural effusion. There is mild emphysema and mild pulmonary scarring. Lung window images demonstrate multiple nodules as seen on the prior CT examination of 2022. There is a 5 mm right upper lobe nodule, seen on image #20 of series 4, stable. There is a 4 mm anterior right upper lobe nodule, best seen in image #29 of series 4, also stable. There is a peripheral right upper lobe 5 mm nodule, seen on image #34 of series 4, also stable. There is a 4 mm right middle lobe nodule seen on image #50 of series 4, again stable.. Limited images of the upper abdomen are unremarkable. IMPRESSION: Lung-RADS category 2. Recommend 12 month follow up low dose chest CT. Reviewed, Interpreted and Dictated by Ernie Chun MD Transcribed by Felisha Fan Authenticated and [facility]
== END 2023-07-03 23:59 | disposition home or self-care (01) ==
LOC: RT 12:43
PROVIDERS: PCP Internal Medicine Adolescent Medicine; Visit Provider Internal Medicine Pulmonary Disease
DX: F17.210 Nicotine dependence, cigarettes, uncomplicated (principal); Z12.2 Encounter for screening for malignant neoplasm of respiratory organs; R06.09 Other forms of dyspnea
CPT/HCPCS: 71271; 94060; 94640; 94726; 94729

== ENCOUNTER 2023-09-07 14:14 | Outpatient (CLI) | payer MEDICARE, OTHER, SELFPAY | END 2023-09-07 23:59 | disposition home or self-care (01) | LOC: RT 14:15 | PROVIDERS: PCP Internal Medicine Adolescent Medicine; Visit Provider Internal Medicine Pulmonary Disease | DX: J43.2 Centrilobular emphysema (principal); G47.34 Idiopathic sleep related nonobstructive alveolar hypoventilation; F17.210 Nicotine dependence, cigarettes, uncomplicated | CPT/HCPCS: 94762 ==

== ENCOUNTER 2024-05-29 13:18 | Outpatient (CLI) | payer MEDICARE, OTHER, SELFPAY ==
--- NOTE | 2024-05-29 13:24 | MM_ITS ---
PROCEDURE INFORMATION: Exam: MG Bilateral Screening 3D Mammography Exam date and time: 05/29/2024 1:40 PM Age: 68 years old Clinical indication: Screening examination; Family history of breast cancer in mother; Mother's age: 50 years TECHNIQUE: Imaging protocol: Bilateral Screening tomosynthesis and 2D mammography including computer-aided detection (CAD) when performed. COMPARISON: 1. MG MM DIG SCREENING MAMM BI W/CAD 10/18/2022 12:51 PM 2. MG MM DIG SCREENING MAMM BI W/CAD 09/21/2021 10:49 AM 3. MG MM DIG SCREENING MAMM BI W/CAD 08/07/2020 9:20 AM 4. MG SCBI MM Dig screening mamm BI w/CAD 04/02/2018 9:46 AM FINDINGS: MAMMOGRAPHY: Breast composition: The breasts are heterogeneously dense, which may obscure small masses. Mass: None. Architectural distortion: None. Calcifications: No suspicious calcifications. Asymmetric density: None. Skin thickening: None. Axillary adenopathy: None. IMPRESSION: No mammographic evidence of malignancy. Annual screening is recommended unless otherwise clinically indicated. ASSESSMENT: BI-RADS Category 1: Negative.
== END 2024-05-29 23:59 | disposition home or self-care (01) ==
LOC: RAD 13:19
PROVIDERS: PCP Internal Medicine Adolescent Medicine; Visit Provider Internal Medicine Adolescent Medicine
DX: Z12.31 Encounter for screening mammogram for malignant neoplasm of breast (principal)
CPT/HCPCS: 77063; 77067

== ENCOUNTER 2024-07-04 15:12 | Outpatient (CLI) | payer MEDICARE, OTHER, SELFPAY ==
--- NOTE | 2024-07-04 15:12 | CT_ITS ---
FINAL REPORT TECHNIQUE: Thin section axial images were obtained from the lung apices to the upper abdomen by computed tomography. Reformatted images were obtained and reviewed. This study was performed with techniques to keep radiation doses al low as reasonably achievable (ALARA). Individualized dose reduction techniques using automated exposure control or adjustment of mA and/or kV according to the patient's size were employed. CLINICAL HISTORY: lung cancer screening CURRENT SMOKER, 1/2 PPD X 45YEARS COMPARISON: 07/03/2023 FINDINGS: CHEST CT LOW DOSE 69-year-old female, current smoker, [id number] history. CTDI vol (mGy): 2.90 DLP (mGy-cm): 109.68 There is no axillary adenopathy. There is no mediastinal or hilar mass or adenopathy. The heart is normal in size. There is no pericardial or pleural effusion. Lung window images demonstrate multiple nodules, also seen on the prior exam of 07/03/2023. The superior right upper lobe nodule, 4 mm in size, best seen on image #20 of series 4, is stable. A 4 mm anterior right upper lobe nodule, best seen on image #32 of series 4, is stable. There is a 5 mm peripheral right upper lobe nodule seen on image #36 of series 4, also stable. A 4 mm right middle lobe nodule best seen on image #52 of series 4, is once again stable. No new nodules are identified. Limited images of the upper abdomen are unremarkable. IMPRESSION: Lung-RADS category 2. Recommend 12 month follow up low dose chest CT. Reviewed, Interpreted and Dictated by Ernie Chun MD Transcribed by Felisha Fan Authenticated and . [facility]
--- OUTSIDE RECORDS SUMMARY | 2024-07-04 15:14 | XMS_ITS | Clinical Summary ---
Author Organization [facility] Address [address] [place] [address] Phone Care Team Providers Care Service Order Clerk Name Role Phone SHE AUSTIN, LUCA Primary Care Provider [phone] Elham AUSTIN, Jesu Eduardo Unavailable [phone] Reason for Visit and Chief Complaint [Patient Encounter] Problems Includes: Problems addressed during this encounter and other active Problems All Visits Onset Date Resolved Date Provider Condition S tatus Joint Pain in the Left Knee 11/11/2021 Douglas Stanley PA-C Active Last Documented On 2 10:33AM ; [facility] Foot Pain (Soft Tissue) 11/06/2020 Eloy Krause od DPM Active Last Documented On 1 1:14PM ; [facility] Plan of Treatment No Plan of Treatment Recorded Assessments Includes: Assessments from this encounter No Assessments Recorded Medical Equipment - Implanted Devices Includes: Current Devices No Medical Equipment Recorded Medications Includes: Medications discussed during this encounter and other current Medications New / Renewed during this visit Jesu Lizarraga MD on 06/29/2022 traMADol HCl 50 MG Oral Tablet Provider: Jesu schaefer MD 5 day supply: 50 tablet, 0 refills Diagnosis: 1-2 po q 4-6h Pharmacy: [facility] - [address], [facility], [id number] - Last Documented On 3 10:47AM By Jerry Lizarraga ; [facility] Ondansetron HCl 4 MG Oral Tablet Provider: Jesu Lizarraga MD 5 day supply: 15 tablet, 0 refills Diagnosis: [id number] Pharmacy: [facility] [address], [facility], [id number] - Last Documented On 3 10:47AM By Jerry Lizarraag ; [facility] Meloxicam 15 MG Oral Tablet Provider: Jesu schaefer MD 30 day supply: 30 tablet, 0 refills Diagnosis: once a day Pharmacy: [facility] - [facility] [address], [facility], [id number] - Last Documented On 3 10:46AM By Jerry Lizarraga ; [facility] Colace 100 MG Oral Capsule Provider: Jesu schaefer MD 30 day supply: 60 capsule, 2 refills Diagnosis: 1-2 tabs daily Pharmacy: [facility] [place] [address], [facility], [phone] - Last Documented On 3 10:46AM By Jerry Lizarraga ; [facility] Cefadroxil 500 MG Oral Capsule Provider: Jesu Lizarraga MD 3 day supply: 6 capsule, 0 refills Diagnosis: twice a day Pharmacy: [facility] [place] [address], [facility], [id number] - Last Documented On 3 10:46AM By Jerry Lizarraga ; [facility] Acetaminophen 500 MG Oral Tablet Provider: Jesu Lizarraga MD 30 day supply: 180 tablet, 0 refills Diagnosis: 2 three times a day Pharmacy: [facility] - [facility] [address], [facility], [id number] - Last Documented On 3 10:46AM By Jerry Lizarraga ; [facility] oxyCODONE HCl 5 MG Oral Tablet Provider: Jesu schaefer MD 5 day supply: 50 tablet, 0 refills Diagnosis: 1-2 po q 4-6h Pharmacy: [facility] - [facility] [place] [address], [facility], [id number] - Last Documented On 3 10:47AM By Jerry Lizarraga ; [facility] Current Medications (continue as prescribed) Fexofenadine HCl 180 MG Oral Tablet 02/03/2022 Provi constanza: Diagnosis: Last Documented On 2 4:26PM By Sarahi Frank ; [facility] B6 Natural 100 MG Oral Tablet 02/03/2022 Provider: Diagnosis: Last Documented On 2 4:27PM By Sarahi Frank ; [facility] Vitamin B12 100 MCG Oral Tablet 02/03/2022 Provider: Diagnosis: Last Documented On 2 4:27PM By Sarahi Frank ; [facility] Fluticasone Propionate 50 MC G/ACT Nasal Suspension 01/25/2022 Provider: LUCA NOWAK MD Diagnosis: Last Documented On 2 4:28PM By Sarahi Frank ; [facility] hydrOXYzine Pamoate 25 MG Oral Capsule 01/21/2022 Pr ovider: LUAC NOWAK MD Diagnosis: Last Documented On 2 4:26PM By Sarahi Frank ; [facility] Meloxicam 7.5 MG Oral Tablet 01/20/2022 Provider: LUCA NOWAK MD Diagnosis: Last Documented On 2 4:26PM By Sarahi Frank ; [facility] Viibryd 40 MG Oral Tablet 01/20/2022 Provider: [facility] NOW[facility] MD Diagnosis: Last Documented On 2 4:26PM By Sarahi Frank ; [facility] diazePAM 5 MG Oral Tablet 01/13/2022 Provider: [facility] NOWAK MD Diagnosis: Last Documented On 2 10:31AM By Sarahi Frank ; [facility] Pravastatin Sodium 40 MG Oral Tablet 01/11/2022 Prov ider: LUCA NOWAK MD Diagnosis: Last Documented On 2 4:26PM By Sarahi Frank ; [facility] metFORMIN HCl 500 MG Oral Tablet 01/05/2022 Provider : LUCA NOWAK MD Diagnosis: Last Documented On 2 4:26PM By Sarahi Frank ; [facility] Anoro Ellipta 62.5-25 MCG/AC T Inhalation Aerosol Powder Breath Activated 01/04/2022 Provider: LUCA NOWAK MD Diagnosis: Last Documented On 2 4:28PM By Sarahi Frank ; [facility] Myrbetriq 50 MG Oral Tablet Extended Release 24 Hour 11/29/2021 Provider: LUCA NOWAK MD Diagnosis: Last Documented On 2 4:26PM By Sarahi Frank ; [facility] Jardiance 25 MG Oral Tablet 11/29/2021 Provider: LUCA NOWAK MD Diagnosis: Last Documented On 2 4:26PM By Sarahi Frank ; [facility] Medications Administered Includes: Administered Medications from this encounter No Administered Medications Recorded Results Includes: Results discussed during this encounter No Results Recorded For Specified Dates History of Present Illness Includes: History of Present Illness from this encounter No History of Present Illness Recorded Social History No Social History Recorded - Smoking Status Unknown Medical History Includes: Medical History addressed during this encounter No Medical History Recorded Family History Includes: Family History addressed during this encounter No Family History Recorded Review of Systems Includes: Review of Systems from this encounter No Review of Systems Recorded Mental Status Includes: Mental Status from this encounter No Mental Status Recorded Functional Status Includes: Functional Status from this encounter No Functional Status Recorded Physical Exam Includes: Physical Exam from this encounter No Physical Exam Recorded Allergies Includes: Active Allergies Substance Type Reaction Onset Date Resolved Date Statu s Clindamycin HCl Allergy 2020 Act cesilia Last Documented On 4 1:22PM ; [facility] Encounters Encounter Provider Location Date Check-In Time Check-Out Time Diagnosis [Patient Encounter] Jesu Lizarraga MD 3 10:34AM 11:59PM Insurance Includes: Active Insurance Policies Plan Name Member ID Group # Subscriber Relationship Effect cesilia Dates 1 - Medicare Part B [facility] [id number] Salima O Stone Self 05/18/2018 - Unknown 2 - [employer] [id number] HoraceDavid K Clinical Notes Includes: Clinical Notes from this encounter No Clinical Notes Recorded
--- OUTSIDE RECORDS SUMMARY | 2024-07-04 15:14 | XMS_ITS ---
Author Organization [facility] Address [address] [place] [address] Phone Care Team Providers Care Eeg Tech Name Role Phone SHE AUSTIN, LUCA Primary Care Provider [phone] AUSTIN, Jesu Eduardo Unavailable [phone] Problems Includes: Active, inactive, and resolved Problems All Visits Onset Date Resolved Date Provider Condition S tatus Joint Pain in the Left Knee 11/11/2021 Douglas Stanley PA-C Active Last Documented On 2 10:33AM ; [facility] Foot Pain (Soft Tissue) 11/06/2020 Eloy Krause od DPM Active Last Documented On 1 1:14PM ; [facility] Plan of Treatment Findings Encounter Date Patient screened for future fall risk: documentation of any fall with injury in past year Follow Up with Richie Verma PA-C 09/05/2023 Last Documented On 4 2:10PM ; [facility] Instructions to patient Intervention and counseling on cessation of tobacco use Last Documented On 4 1:23PM ; [facility] Lose weight Last Documented On 4 1:23PM ; [facility] Intervention and counseling on cessation of tobacco use Last Documented On 3 1:04PM ; [facility] Lose weight Last Documented On 3 12:58PM ; [facility] Intervention and counseling on cessation of tobacco use Last Documented On 3 10:03AM ; [facility] Lose weight Last Documented On 3 10:03AM ; [facility] Intervention and counseling on cessation of tobacco use Last Documented On 2 10:35AM ; [facility] Lose weight Last Documented On 2 10:35AM ; [facility] Intervention and counseling on cessation of tobacco use Last Documented On 2 11:05AM ; [facility] Lose weight Last Documented On 2 10:34AM ; [facility] Lose weight Last Documented On 1 1:14PM ; [facility] Lose weight Last Documented On 1 3:39PM ; [facility] Intervention and counseling on cessation of tobacco use Last Documented On 7 1:18PM ; [facility] Lose weight Last Documented On 7 1:18PM ; [facility] Instructions for patient See PCP for BP and wegiht Last Documented On 7 9:20AM ; [facility] Intervention and counseling on cessation of tobacco use Last Documented On 7 9:20AM ; [facility] Lose weight Last Documented On 7 9:20AM ; [facility] Education and Decision Aids were provided during visit for: Health seminar on smoking ce ssation Last Documented On 7 1:18PM ; [facility] Health seminar on smoking ce ssation Last Documented On 7 9:20AM ; [facility] Assessments Includes: Assessments for all patient encounters Findings Encounter Date Overweight Follow Up with Richie Verma PA-C 09/05/2023 Last Documented On 4 2:10PM ; [facility] Instructions Includes: Instructions for all patient encounters Instructions to patient Intervention and counseling on cessation of tobacco use Last Documented On 4 1:23PM ; [facility] Lose weight Last Documented On 4 1:23PM ; [facility] Intervention and counseling on cessation of tobacco use Last Documented On 3 1:04PM ; [facility] Lose weight Last Documented On 3 12:58PM ; [facility] Intervention and counseling on cessation of tobacco use Last Documented On 3 10:03AM ; [facility] Lose weight Last Documented On 3 10:03AM ; [facility] Intervention and counseling on cessation of tobacco use Last Documented On 2 10:35AM ; [facility] Lose weight Last Documented On 2 10:35AM ; [facility] Intervention and counseling on cessation of tobacco use Last Documented On 2 11:05AM ; [facility] Lose weight Last Documented On 2 10:34AM ; [facility] Lose weight Last Documented On 1 1:14PM ; [facility] Lose weight Last Documented On 1 3:39PM ; [facility] Intervention and counseling on cessation of tobacco use Last Documented On 7 1:18PM ; [facility] Lose weight Last Documented On 7 1:18PM ; [facility] Instructions for patient See PCP for BP and wegiht Last Documented On 7 9:20AM ; [facility] Intervention and counseling on cessation of tobacco use Last Documented On 7 9:20AM ; [facility] Lose weight Last Documented On 7 9:20AM ; [facility] Education and Decision Aids were provided during visit for: Health seminar on smoking ce ssation Last Documented On 7 1:18PM ; [facility] Health seminar on smoking ce ssation Last Documented On 7 9:20AM ; [facility] Medical Equipment - Implanted Devices Includes: Current and historical Devices No Medical Equipment Recorded Medications Includes: Current and historical Medications Current Medications (continue as prescribed) Fexofenadine HCl 180 MG Oral Tablet 02/03/2022 Provi constanza: Diagnosis: Last Documented On 2 4:26PM By Sarahi Frank ; [facility] B6 Natural 100 MG Oral Tablet 02/03/2022 Provider: Diagnosis: Last Documented On 2 4:27PM By Sarahi Frank ; [facility] Vitamin B12 100 MCG Oral Tablet 02/03/2022 Provider: Diagnosis: Last Documented On 2 4:27PM By Sarahi Frank ; [facility] Fluticasone Propionate 50 MC G/ACT Nasal Suspension 01/25/2022 Provider: LUCA NOWAK MD Diagnosis: Last Documented On 2 4:28PM By Sarahi Frank ; [facility] hydrOXYzine Pamoate 25 MG Oral Capsule 01/21/2022 Pr ovider: LUCA NOWAK MD Diagnosis: Last Documented On 2 4:26PM By Sarahi Frank ; [facility] Meloxicam 7.5 MG Oral Tablet 01/20/2022 Provider: LUCA NOWAK MD Diagnosis: Last Documented On 2 4:26PM By Sarahi Frank ; [facility] Viibryd 40 MG Oral Tablet 01/20/2022 Provider: [facility] NOWAK MD Diagnosis: Last Documented On 2 4:26PM By Sarahi Frank ; [facility] diazePAM 5 MG Oral Tablet 01/13/2022 Provider: [facility] NOWAK MD Diagnosis: Last Documented On 2 10:31AM By Sarahi Frank ; [facility] Pravastatin Sodium 40 MG Oral Tablet 01/11/2022 Prov ider: LUCA NOWAK MD Diagnosis: Last Documented On 2 4:26PM By Sarahi Frank ; [facility] metFORMIN HCl 500 MG Oral Tablet 01/05/2022 Provider : LUCA NOWAK MD Diagnosis: Last Documented On 2 4:26PM By Sarahi Frank ; [facility] Anoro Ellipta 62.5-25 MCG/AC T Inhalation Aerosol Powder Breath Activated 01/04/2022 Provider: LUCA NOWAK MD Diagnosis: Last Documented On 2 4:28PM By Sarahi Frank ; [facility] Myrbetriq 50 MG Oral Tablet Extended Release 24 Hour 11/29/2021 Provider: LUCA NOWAK MD Diagnosis: Last Documented On 2 4:26PM By Sarahi Frank ; [facility] Jardiance 25 MG Oral Tablet 11/29/2021 Provider: LUCA NOWAK MD Diagnosis: Last Documented On 2 4:26PM By Sarahi Frank ; [facility] Past Medications on file Aspirin 81 MG Oral Tablet Delayed Release 07/01/2022 - 08/12/2022 Provider: Jesu Lizarraga MD Diagnosis: twice a day Last Documented On 3 11:10AM By Jerry Lizarraga ; [facility] traMADol HCl 50 MG Oral Tablet 06/29/2022 - 07/04/2022 Provider: Jesu aviles MD Diagnosis: 1-2 po q 4-6h Last Documented On 3 10:47AM By Jerry Lizarraga ; [facility] Ondansetron HCl 4 MG Oral Tablet 06/29/2022 - 07/04/2022 Provider: Jesu Lizarraga MD Diagnosis: [id number] Last Documented On 3 10:47AM By Jerry Lizarraga ; [facility] Meloxicam 15 MG Oral Tablet 06/29/2022 - 07/29/2022 Provider: Jesu aviles MD Diagnosis: once a day Last Documented On 3 10:46AM By Jerry Lizarraga ; [facility] Colace 100 MG Oral Capsule 06/29/2022 - 09/27/2022 Provider: Jesu aviles MD Diagnosis: 1-2 tabs daily Last Documented On 3 10:46AM By Jerry Lizarraga ; [facility] Cefadroxil 500 MG Oral Capsule 06/29/2022 - 07/02/2022 Provider: Jesu aviles MD Diagnosis: twice a day Last Documented On 3 10:46AM By Jerry Lizarraga ; [facility] Acetaminophen 500 MG Oral Tablet 06/29/2022 - 07/29/2022 Provider: Jesu Lizarraga MD Diagnosis: 2 three times a day Last Documented On 3 10:46AM By Jerry Lizarraga ; [facility] oxyCODONE HCl 5 MG Oral Tablet 06/29/2022 - 07/04/2022 Provider: Jesu aviles MD Diagnosis: 1-2 po q 4-6h Last Documented On 3 10:47AM By Jerry Lizarraga ; [facility] Mupirocin 2% External Ointment 05/27/2022 - 09/05/2023 Provider: Jesu aviles MD Diagnosis: three times a day Apply to n ostrils 3 time a day 5 days prior to surgery. Last Documented On 4 1:38PM By Dee Estes ; [facility] Bystolic 5 MG Oral Tablet 02/01/2021 - 02/03/2022 Prov ider: LUCA NOWAK MD Diagnosis: Last Documented On 2 4:26PM By Sarahi Frank ; [facility] Anoro Ellipta 62.5-25 MCG/AC T Inhalation Aerosol Powder Breath Activated 02/01/2021 - 02/03/2022 Provider: LUCA Marie Diagnosis: Last Documented On 2 4:28PM By Sarahi Frank ; [facility] Anoro Ellipta 62.5-25 MCG/IN H Inhalation Aerosol Powder Breath Activated 09/15/2020 - 02/03/2022 Provider: LUCA Marie Diagnosis: Last Documented On 2 10:31AM By Sarahi Frank ; [facility] NexIUM 20 MG Oral Capsule Delayed Release 2020 - 02/03/2022 Provider: Diagnosis: Last Documented On 2 4:26PM By Sarahi Frank ; [facility] Myrbetriq 50 MG Oral Tablet Extended Release 24 Hour 2020 - 02/03/2022 Provider: Diagnosis: Last Documented On 2 4:26PM By Sarahi Frank ; [facility] Fluticasone Propionate 50 MC G/ACT Nasal Suspension 2020 - 02/03/2022 Provider: Diagnosis: Last Documented On 2 4:26PM By Sarahi Frank ; [facility] ProAir HFA 108 (90 Base) MCG /ACT Inhalation Aerosol Solution 2020 - 02/03/2022 Provider: Diagnosis: Last Documented On 2 4:26PM By Sarahi Frank ; [facility] Advair Diskus 250-50 MCG/DOS E Inhalation Aerosol Powder Breath Activated 2020 - 11/06/2020 Provider: Diagnosis: Last Documented On 1 1:34PM By Marta Olguin ; [facility] hydrOXYzine HCl 25 MG Oral Tablet 2020 - 022 Provider: Diagnosis: Last Documented On 2 4:26PM By Sarahi Frank ; [facility] Pravastatin Sodium 40 MG Oral Tablet 2020 - 01/18 Provider: Diagnosis: Last Documented On 2 4:26PM By Sarahi Frank ; [facility] metFORMIN HCl 500 MG Oral Tablet 2020 - 02/04/20 Provider: Diagnosis: Last Documented On 2 4:26PM By Sarahi Frank ; [facility] Centrum Silver Oral Tablet 2020 - 02/03/2022 Pro vider: Diagnosis: Last Documented On 2 4:26PM By Sarahi Frank ; [facility] Bystolic 5 MG Oral Tablet 2020 - 02/03/2022 Prov ider: Diagnosis: Last Documented On 2 4:26PM By Sarahi Frank ; [facility] Meloxicam 7.5 MG Oral Tablet 2020 - 02/03/2022 P rovider: Diagnosis: Last Documented On 2 4:26PM By Sarahi Frank ; [facility] hydroCHLOROthiazide 25 MG Oral Tablet 2020 - Provider: Diagnosis: Last Documented On 2 4:26PM By Sarahi Frank ; [facility] Fexofenadine HCl 180 MG Oral Tablet 2020 - 02/03 Provider: Diagnosis: Last Documented On 2 4:27PM By Sarahi Frank ; [facility] B Complex-B12 Oral Tablet 2020 - 02/03/2022 Prov ider: Diagnosis: Last Documented On 2 10:31AM By Sarahi Frank ; [facility] Jardiance 25 MG Oral Tablet 2020 - 02/03/2022 Pr ovider: Diagnosis: Last Documented On 2 4:26PM By Sarahi Frank ; [facility] B6 Natural 100 MG Oral Tablet 2020 - 02/03/2022 Provider: Diagnosis: Last Documented On 2 4:26PM By Sarahi Frank ; [facility] Viibryd 20 MG Oral Tablet 2020 - 02/03/2022 Prov ider: Diagnosis: Last Documented On 2 4:26PM By Sarahi Frank ; [facility] Neurontin 300MG Oral Capsule, conventional 11/23/2016 - 02/21/2017 Provider: Jesu Lizarraga MD Diagnosis: Aftercare follow ing joint replacement surgery 1 every bedtime FOR SURGERY Last Documented On 7 2:58PM By Nataly Sinclair ; [facility] OxyCODONE HCl 5MG Oral Tablet 11/23/2016 - 12/03/2016 Provider: Jesu Lizarraga MD Diagnosis: Aftercare follow ing joint replacement surgery 1-2 po q 4-6h FOR SURGERY Last Documented On 7 2:59PM By Nataly Sinclair ; [facility] Mobic 15MG Oral Tablet 11/23/2016 - 2020 Provider: Jesu Lizarraga MD Diagnosis: Aftercare follow ing joint replacement surgery once a day FOR SURGERYDO N OT FILL TILL 11/29/16 Last Documented On 1 3:33PM By Little Mueller ; [facility] Colace 100MG Oral Capsule, conventional 11/23/2016 - 2020 Provider: Jesu Lizarraga MD Diagnosis: Aftercare follow ing joint replacement surgery 1-2 tabs daily FOR SURGERY DO NOT FILL TILL 11/29/16 Last Documented On 1 3:33PM By Little Mueller ; [facility] Acetaminophen 500MG Oral Tablet 11/23/2016 - 2020 Provider: Jesu Lizarraga MD Diagnosis: Aftercare follow ing joint replacement surgery 2 three times a day FOR SURG BRANDIEDO NOT FILL TILL 11/29/16 Last Documented On 1 3:33PM By Little Mueller ; [facility] TraMADol HCl 50MG Oral Tablet 11/23/2016 - 12/06/2016 Provider: Jesu Lizarraga MD Diagnosis: Aftercare follow ing joint replacement surgery 2 tablets every 6 hours FOR SURGERY Last Documented On 7 2:59PM By Nataly Sinclair ; [facility] Zofran 4 MG Tablet 05/19/2016 - 2020 Provider: Jesu Lizarraga MD Diagnosis: Aftercare follow ing joint replacement surgery [id number] prn nausea Last Documented On 1 3:33PM By Little Mueller ; [facility] Neurontin 300 MG Capsule 05/19/2016 - 2020 Provider: Jesu Lizarraga MD Diagnosis: Aftercare follow ing joint replacement surgery 1 every bedtime sx 3--17 Last Documented On 1 3:33PM By Little Mueller ; [facility] Colace 100 MG Capsule 05/19/2016 - 2020 Provider: Jesu Lizarraga MD Diagnosis: Aftercare follow ing joint replacement surgery 1-2 tabs daily Last Documented On 1 3:33PM By Little Mueller ; [facility] Mobic 15 MG Tablet 05/19/2016 - 2020 Provider: Jesu Lizarraga MD Diagnosis: Aftercare follow ing joint replacement surgery once a day Last Documented On 1 3:33PM By Little Mueller ; [facility] Keflex 500 MG Capsule 05/19/2016 - 2020 Provider : Jesu Lizarraga MD Diagnosis: 1 every 6 hours Last Documented On 1 3:33PM By Little Mueller ; [facility] Medications Administered Includes: Administered Medications in patient's chart No Administered Medications Recorded Vital Signs Includes: Vital Signs from 07/05/2023 through 07/04/2024 Vital Name 09/05/2023 01:23P Height (in) 66 Weight (lb) 169 Body Mass Index 27.3 Body Surface Area 1.9 Note: ab Last Documented: On 09/05/2023 1:23PM ; [facility] Results Includes: Results from 07/05/2023 through 07/04/2024 No Results Recorded For Specified Dates History of Present Illness History of Present Illness not supported for this document type No History of Present Illness Recorded Social History Description Last Updated No recent change in diet 07/19/2022 Last Documented On 3 10:25AM ; [facility] Yes, current smoker. 07/19/2022 Last Documented On 3 10:25AM ; [facility] Not a tobacco non-user 02/03/2022 Last Documented On 2 4:16PM ; [facility] Tobacco use 11/11/2021 Last Documented On 3 10:25AM ; [facility] Non-smoker 2020 Last Documented On 1 3:56PM ; [facility] Yes, current smoker. 2020 Last Documented On 1 3:56PM ; [facility] Caffeine use 01/31/2017 Last Documented On 7 11:45AM ; [facility] Current smoker 01/31/2017 Last Documented On 7 11:45AM ; [facility] No recent change in diet 01/31/2017 Last Documented On 7 11:45AM ; [facility] Not exercising regularly 01/31/2017 Last Documented On 7 11:45AM ; [facility] Not using alcohol 01/31/2017 Last Documented On 7 11:45AM ; [facility] Not using drugs 01/31/2017 Last Documented On 7 11:45AM ; [facility] Smoking status : Current everyday smoker 01/31/2017 Last Documented On 7 11:45AM ; [facility] Procedures and Surgical History Includes: Procedures from 07/05/2023 through 07/04/2024 Procedures Code Diagnosis Performing Provider Service Location Service Date X-RAY EXAM OF KNEE 3 VIEWS (LEFT) 70067 Aftercare following joint replacement surgery, Presence of left artificial knee joint Richie Verma PA-C [facility] 09/05/2023 Last Documented On 4 12:52PM ; [facility] Surgical History Last Updated History of total knee arthroplasty 01/31 Last Documented On 7 11:45AM ; [facility] Medical History Includes: Medical History in patient's chart Description Last Updated History of Hypertension 02/03/2022 Last Documented On 2 4:16PM ; [facility] History of arthritis 11/12/2021 Last Documented On 3 10:25AM ; [facility] History of Heartburn / Acid Reflux 11/12 Last Documented On 3 10:25AM ; [facility] History of Sleep Apnea 11/12/2021 Last Documented On 3 10:25AM ; [facility] Use of CPAP 11/12/2021 Last Documented On 3 10:25AM ; [facility] Arthritis 2020 Last Documented On 1 3:56PM ; [facility] Heartburn / Acid Reflux 2020 Last Documented On 1 3:56PM ; [facility] Hypertension 2020 Last Documented On 1 3:56PM ; [facility] Recent immunization for flu 2020 Last Documented On 1 3:56PM ; [facility] Recent immunization for pneumococcal pne umonia 2020 Last Documented On 1 3:56PM ; [facility] Sleep Apnea 2020 Last Documented On 1 3:56PM ; [facility] Total knee arthroplasty 2020 Last Documented On 1 3:56PM ; [facility] HIGH CHOLESTEROL ~HEARTBURN ~ACID REFLUX 01/31/2017 Last Documented On 7 11:45AM ; [facility] Arthritic joint problems 01/31/2017 Last Documented On 7 11:45AM ; [facility] History of depression 01/31/2017 Last Documented On 7 11:45AM ; [facility] History of diabetes mellitus 01/31/2017 Last Documented On 7 11:45AM ; [facility] A recent injection 01/31/2017 Last Documented On 7 11:45AM ; [facility] Family History Includes: Family History in patient's chart Description Last Updated Diabetes mellitus 11/06/2020 Last Documented On 1 2:02PM ; [facility] Family history of osteoporosis 1 Last Documented On 1 2:02PM ; [facility] Family history of heart disease 06/11/19 21 Last Documented On 1 3:56PM ; [facility] Family history of hypertension 1 Last Documented On 1 3:56PM ; [facility] Family history of rheumatoid arthritis 0 2020 Last Documented On 1 3:56PM ; [facility] Family history of cancer mother, father 02/13/2017 Last Documented On 7 9:29AM ; [facility] Fraternal history of diabetes mellitus B ROTHER 01/31/2017 Last Documented On 7 11:45AM ; [facility] Maternal history of family history of ca ncer MOTHER, FATHER 01/31/2017 Last Documented On 7 11:45AM ; [facility] Maternal history of family history of he art disease MOTHER 01/31/2017 Last Documented On 7 11:45AM ; [facility] Maternal history of hypertension MOTHER 01/31/2017 Last Documented On 7 11:45AM ; [facility] Maternal history of osteoporosis MOTHER 01/31/2017 Last Documented On 7 11:45AM ; [facility] Review of Systems Review of Systems not supported for this document type No Review of Systems Recorded Mental Status Description No anxiety Functional Status No Functional Status Recorded Physical Exam Physical Exam not supported for this document type No Physical Exam Recorded Immunizations Includes: Immunizations in patient's chart Vaccine Dose # Date Site Reaction(s) Status Source Influenza 1 03/20/2020 Complete (Reported) Patient Last Documented On 1 3:38PM ; [facility] PCV (Pneumovax 23) 1 03/20/2020 Complete ( Reported) Patient Last Documented On 1 3:38PM ; [facility] Allergies Includes: Active, inactive, and resolved Allergies Substance Type Reaction Onset Date Resolved Date Statu s Clindamycin HCl Allergy 2020 Act cesilia Last Documented On 4 1:22PM ; [facility] Encounters Includes: Encounters from 07/05/2023 through 07/04/2024 Encounter Provider Location Date Check-In Time Check-Out Time Diagnosis Follow Up Richie Verma PA-C [facility] 09/05/19 24 1:20PM 2:11PM Overweight Insurance Includes: Active Insurance Policies Plan Name Member ID Group # Subscriber Relationship Effect cesilia Dates 1 - Medicare Part B [facility] [id number] Salima Vu Self 05/18/2018 - Unknown 2 - [employer] [id number] Horace, David K Clinical Notes Includes: Signed Clinical Notes starting from 03/03/2022 * Progress note Date Encounter Last Documented by 09/05/2023 Follow Up Last documented on 09/05/2023; 2:10 PM, Richie Verma PA-C; [facility] Active Problems & Conditions - Foot Pain (Soft Tissue) - Joint Pain in the Left Knee Chief Complaint The Chief Complaint is: Left knee pain. Referred Here Referred by self. History of Present Illness Salima Vu is a 68 year old female. - Allergy list reviewed - Problem list reviewed - Medication list reviewed - - Review of medications documented Current Medication - Anoro Ellipta 62.5-25 MCG/ACT Inhalation Aerosol Powder Breath Activated 90 days, 0 refills - B6 Natural 100 MG Oral Tablet 0 days, 0 refills - diazePAM 5 MG Oral Tablet 14 days, 0 refills - Fexofenadine HCl 180 MG Oral Tablet use as directed 0 days, 0 refills - Fluticasone Propionate 50 MCG/ACT Nasal Suspension 60 days, 0 refills - hydrOXYzine Pamoate 25 MG Oral Capsule 90 days, 0 refills - Jardiance 25 MG Oral Tablet 90 days, 0 refills - Meloxicam 7.5 MG Oral Tablet 90 days, 0 refills - metFORMIN HCl 500 MG Oral Tablet 90 days, 0 refills - Myrbetriq 50 MG Oral Tablet Extended Release 24 Hour 90 days, 0 refills - Pravastatin Sodium 40 MG Oral Tablet 90 days, 0 refills - Viibryd 40 MG Oral Tablet 90 days, 0 refills - Vitamin B12 100 MCG Oral Tablet 0 days, 0 refills Past Medical/Surgical History Reported: Use of CPAP. Medical: Arthritic joint problems. Medications: A recent injection. Immunization History: Recent immunization for flu and for pneumococcal pneumonia. Diagnoses: Sleep Apnea. Sleep Apnea. Heartburn / Acid Reflux. Heartburn / Acid Reflux. Hypertension. Hypertension. Diabetes mellitus. Arthritis. Arthritis. Depression HIGH CHOLESTEROL HEARTBURN ACID REFLUX. Surgical: - Total knee arthroplasty - Total knee arthroplasty Social History Yes, current smoker. Yes, current smoker. Current diet: No recent change in diet. No recent change in diet. Caffeine use: Caffeine use. Tobacco use: Current smoker. Not a tobacco non-user. Non-smoker and smoking status: Current everyday smoker. Alcohol: Not using alcohol. Drug Use: Not using drugs. Habits: Not exercising regularly. Allergies - Clindamycin HCl Family History Cancer mother, father Heart disease Diabetes mellitus Systemic hypertension Osteoporosis Rheumatoid arthritis Maternal: Cancer MOTHER, FATHER Heart disease MOTHER Systemic hypertension MOTHER Osteoporosis MOTHER Fraternal: Diabetes mellitus BROTHER Review Of Systems Systemic: Not feeling tired, no recent weight loss, and no recent weight gain. Head: No headache. Sinus pain. Eyes: No vision problems and no Cataracts. Glasses/Contacts. No Glaucoma. Otolaryngeal: No hearing loss and no tinnitus. Cardiovascular: No chest pain or discomfort and no palpitations. Hypertension. No High Cholesterol. Pulmonary: No daytime asthma symptoms and no chronic cough. No wheezing. Gastrointestinal: No heartburn and no abdominal pain. No Indigestion, no Peptic Ulcer, no GI Stomach Bleed, and no Ulcers. Acid Reflux. Endocrine: No hot flashes and no muscle weakness. Diabetes. No Hypothyroid and no Hyperthyroid. Hematologic: No easy bleeding. A tendency for easy bruising. No Anemia. Musculoskeletal: No Arthritis. Lower back pain. No soft tissue swelling. Pain localized to one or more joints. Neurological: No dizziness, no convulsions, and no numbness. Psychological: No anxiety, no emotional lability, no depression, and no insomnia. Not crying for no reason. Skin: No dry skin. No Ulcers, no Scars, and no rash. Allergic and Immunologic: Complaint of seasonal allergic reaction. Physical Findings - Vitals taken 09/05/2023 01:23 pm ab Height 66 in Weight 169 lbs Body Mass Index 27.3 kg/m2 Body Surface Area 1.9 m2 Patient alert and oriented healthy weight normal gait Left Hip ROM normal Left Knee Left ankle significant pes planus Skin around knee clean, dry and intact left knee ROM 0-125 [No] MJT, [No] LJT, [No] Pes Tenderness Strength [5/5] TA, [5/5] Gastroc, [5/5] Quad Palpable pulses DP/PT Tests Three views of the left knee taken today demonstrate well-fixed well-positioned total knee arthroplasty. No sign of loosening or prosthetic complications Assessment - Overweight 1 year postop left TKA Therapy - Intervention and counseling on cessation of tobacco use. - Pt received screening for fall risk. Counseling/Education - Tobacco non-user - Use of tobacco assessment performed - Lose weight Plan - Patient screened for future fall risk: documentation of any fall with injury in past year Fall Risk Assessment: This patient has been identified as a fall risk. Balance/gait along with postural blood pressure, vision and home fall hazards have been assessed. Medications have been reviewed, and recommendations made with regard to contributing factors for future falls. Plan of care: Consideration of vitamin D supplementation along with balance and strength training with consideration for formal physical therapy has been discussed with the patient. Patient is 1 year postop left total knee arthroplasty. Overall doing well. Having some difficulty with rotation during ambulating due to significant left ankle pes planus. Patient wears good healthy shoes. Did not tolerate Marissa left ankle brace. Continue with ad nicole activity. Follow up in the office in 3-5 years or as needed Notes This dictation was done with voice recognition software and may contain errors and omissions. Practice Management Use of tobacco assessment performed and patient screened for future fall risk documentation of any fall with injury in past year; No influenza immunization patient refused. Care Team - LUCA NOWAK MD - CUSTOMER SERVICE SUPERVISOR
--- OUTSIDE RECORDS SUMMARY | 2024-07-04 15:14 | XMS_ITS | Clinical Summary ---
Author Organization [facility] , [facility] Address [address] [place] [address] Phone Care Team Providers Care Lighting Fixture Installer Name Role Phone SHE AUSTIN, LUCA Primary Care Provider [phone] Elham AUSTIN, Jesu Eduardo Unavailable [phone] Reason for Visit and Chief Complaint The Chief Complaint is: left knee pain Problems Includes: Problems addressed during this encounter and other active Problems All Visits Onset Date Resolved Date Provider Condition S tatus Joint Pain in the Left Knee 11/11/2021 Douglas Stanley PA-C Active Last Documented On 2 10:33AM ; [facility] Foot Pain (Soft Tissue) 11/06/2020 Eloy Krause od DPM Active Last Documented On 1 1:14PM ; [facility] Plan of Treatment Fall Risk Assessment: This patient has been [...] therapy has been discussed with the patient. - Last Documented On 09/01/2022 1:39PM ; [facility] she was doing relatively well. She is to continue with physical therapy and home exercise program. May gradually start to progress to activity as tolerated. Follow-up in the office in one year with repeat x-rays - Last Documented On 09/01/2022 1:39PM ; [facility] Instructions to patient Intervention and counseling on cessation of tobacco use Last Documented On 3 1:04PM ; [facility], [facility] Lose weight Last Documented On 3 12:58PM ; [facility], [facility] Assessments Includes: Assessments from this encounter Findings 8 weeks postop left TKA revision - Last Documented On 09/01/2022 1:39PM ; [facility], [facility] Instructions Includes: Instructions from this encounter Instructions to patient Intervention and counseling on cessation of tobacco use Last Documented On 3 1:04PM ; [facility], [facility] Lose weight Last Documented On 3 12:58PM ; [facility], [facility] Medical Equipment - Implanted Devices Includes: Current Devices No Medical Equipment Recorded Medications Includes: Medications discussed during this encounter and other current Medications Current Medications (continue as prescribed) Fexofenadine HCl 180 MG Oral Tablet 02/03/2022 Provi constanza: Diagnosis: Last Documented On 2 4:26PM By Sarahi Frank ; [facility], [facility] B6 Natural 100 MG Oral Tablet 02/03/2022 Provider: Diagnosis: Last Documented On 2 4:27PM By Sarahi Frank ; [facility], [facility] Vitamin B12 100 MCG Oral Tablet 02/03/2022 Provider: Diagnosis: Last Documented On 2 4:27PM By Sarahi Frank ; [facility], [facility] Fluticasone Propionate 50 MC G/ACT Nasal Suspension 01/25/2022 Provider: LUCA NOWAK MD Diagnosis: Last Documented On 2 4:28PM By Sarahi Frank ; [facility], [facility] hydrOXYzine Pamoate 25 MG Oral Capsule 01/21/2022 Pr ovider: LUCA NOWAK MD Diagnosis: Last Documented On 2 4:26PM By Sarahi Frank ; [facility], [facility] Meloxicam 7.5 MG Oral Tablet 01/20/2022 Provider: LUCA NOWAK MD Diagnosis: Last Documented On 2 4:26PM By Sarahi Frank ; [facility], [facility] Viibryd 40 MG Oral Tablet 01/20/2022 Provider: [facility] NOWAK MD Diagnosis: Last Documented On 2 4:26PM By Sarahi Frank ; [facility], [facility] diazePAM 5 MG Oral Tablet 01/13/2022 Provider: [facility] NOWAK MD Diagnosis: Last Documented On 2 10:31AM By Sarahi Frank ; [facility], [facility] Pravastatin Sodium 40 MG Oral Tablet 01/11/2022 Prov ider: LUCA NOWAK MD Diagnosis: Last Documented On 2 4:26PM By Sarahi Frank ; [facility], [facility] metFORMIN HCl 500 MG Oral Tablet 01/05/2022 Provider : LUCA NOWAK MD Diagnosis: Last Documented On 2 4:26PM By Sarahi Frank ; [facility], [facility] Anoro Ellipta 62.5-25 MCG/AC T Inhalation Aerosol Powder Breath Activated 01/04/2022 Provider: LUCA NOWAK MD Diagnosis: Last Documented On 2 4:28PM By Sarahi Frank ; [facility], [facility] Myrbetriq 50 MG Oral Tablet Extended Release 24 Hour 11/29/2021 Provider: LUCA NOWAK MD Diagnosis: Last Documented On 2 4:26PM By Sarahi Frank ; [facility], [facility] Jardiance 25 MG Oral Tablet 11/29/2021 Provider: LUCA NOWAK MD Diagnosis: Last Documented On 2 4:26PM By Sarahi Frank ; [facility], [facility] Past Medications on file Aspirin 81 MG Oral Tablet Delayed Release 07/01/2022 - 08/12/2022 Provider: Jesu Lizarraga MD Diagnosis: twice a day Last Documented On 3 11:10AM By Jerry Lizarraga ; [facility], [facility] traMADol HCl 50 MG Oral Tablet 06/29/2022 - 07/04/2022 Provider: Jesu aviles MD Diagnosis: 1-2 po q 4-6h Last Documented On 3 10:47AM By Jerry Lizarraga ; [facility], [facility] Ondansetron HCl 4 MG Oral Tablet 06/29/2022 - 07/04/2022 Provider: Jesu Lizarraga MD Diagnosis: 2spz2-2c Last Documented On 3 10:47AM By Jerry Lizarraga ; [facility], [facility] Meloxicam 15 MG Oral Tablet 06/29/2022 - 07/29/2022 Provider: Jesu aviles MD Diagnosis: once a day Last Documented On 3 10:46AM By Jerry Lizarraga ; [facility] Colace 100 MG Oral Capsule 06/29/2022 - 09/27/2022 Provider: Jesu aviles MD Diagnosis: 1-2 tabs daily Last Documented On 3 10:46AM By Jerry Lizarraga ; [facility] Cefadroxil 500 MG Oral Capsule 06/29/2022 - 07/02/2022 Provider: Jesu aviles MD Diagnosis: twice a day Last Documented On 3 10:46AM By Jerry Lizarraga ; [facility] Acetaminophen 500 MG Oral Tablet 06/29/2022 - 07/29/2022 Provider: Jesu Lizarraga MD Diagnosis: 2 three times a day Last Documented On 3 10:46AM By Jerry Lizarraga ; [facility] oxyCODONE HCl 5 MG Oral Tablet 06/29/2022 - 07/04/2022 Provider: Jesu aviles MD Diagnosis: 1-2 po q 4-6h Last Documented On 3 10:47AM By Jerry Lizarraga ; [facility] Neurontin 300MG Oral Capsule, conventional 11/23/2016 - 02/21/2017 Provider: Jesu Lizarraga MD Diagnosis: Aftercare follow ing joint replacement surgery 1 every bedtime FOR SURGERY Last Documented On 7 2:58PM By Nataly Sinclair ; [facility] OxyCODONE HCl 5MG Oral Tablet 11/23/2016 - 12/03/2016 Provider: Jesu Lizarraga MD Diagnosis: Aftercare follow ing joint replacement surgery 1-2 po q 4-6h FOR SURGERY Last Documented On 7 2:59PM By Nataly Sinclair ; [facility] TraMADol HCl 50MG Oral Tablet 11/23/2016 - 12/06/2016 Provider: Jesu Lizarraga MD Diagnosis: Aftercare follow ing joint replacement surgery 2 tablets every 6 hours FOR SURGERY Last Documented On 7 2:59PM By Nataly Sinclair ; [facility] Medications Administered Includes: Administered Medications from this encounter No Administered Medications Recorded Vital Signs Includes: Vital Signs from this encounter Vital Name 09/01/2022 12:58P Height (in) 66 Weight (lb) 169 Body Mass Index 27.3 Body Surface Area 1.9 Note: dp Last Documented: On 09/01/2022 1:04PM ; [facility] Results Includes: Results discussed during this encounter No Results Recorded For Specified Dates History of Present Illness Includes: History of Present Illness from this encounter SHIREEN Vu is a 67 year old female. - Allergy list reviewed - Problem list reviewed - Medication list reviewed Social History Description Last Updated No recent change in diet 07/19/2022 Last Documented On 3 12:58PM ; [facility] Yes, current smoker. 07/19/2022 Last Documented On 3 12:58PM ; [facility] Not a tobacco non-user 02/03/2022 Last Documented On 3 12:58PM ; [facility] Tobacco use 11/11/2021 Last Documented On 3 12:58PM ; [facility] Non-smoker 2020 Last Documented On 3 12:58PM ; [facility] Yes, current smoker. 2020 Last Documented On 3 12:58PM ; [facility] Caffeine use 01/31/2017 Last Documented On 3 12:58PM ; [facility] Current smoker 01/31/2017 Last Documented On 3 12:58PM ; [facility] No recent change in diet 01/31/2017 Last Documented On 3 12:58PM ; [facility] Not exercising regularly 01/31/2017 Last Documented On 3 12:58PM ; [facility] Not using alcohol 01/31/2017 Last Documented On 3 12:58PM ; [facility] Not using drugs 01/31/2017 Last Documented On 3 12:58PM ; [facility] Smoking status : Current everyday smoker 01/31/2017 Last Documented On 3 12:58PM ; [facility], [facility] Procedures and Surgical History Includes: Procedures from this encounter Procedures Code Diagnosis Performing Provider Service L ocation Service Date intervention and counseling on cessation of tobacco use 4000F Last Documented On 3 1:04PM ; [facility], [facility] use of tobacco assessment performed 1000F Last Documented On 3 12:58PM ; [facility], [facility] no influenza immunization patient refuse d Last Documented On 3 12:58PM ; [facility], [facility] patient screened for future fall risk: documentation of any fall with injury in past year 1100F Last Documented On 3 12:58PM ; [facility], [facility] Pt received screening for fall risk G8270 Last Documented On 3 12:58PM ; [facility] Surgical History Last Updated History of total knee arthroplasty 01/31 Last Documented On 3 12:58PM ; [facility], [facility] Medical History Includes: Medical History addressed during this encounter Description Last Updated History of Hypertension 02/03/2022 Last Documented On 3 12:58PM ; [facility], [facility] History of arthritis 11/12/2021 Last Documented On 3 12:58PM ; [facility] History of Heartburn / Acid Reflux 11/12 Last Documented On 3 12:58PM ; [facility] History of Sleep Apnea 11/12/2021 Last Documented On 3 12:58PM ; [facility], [facility] Use of CPAP 11/12/2021 Last Documented On 3 12:58PM ; [facility], [facility] Arthritis 2020 Last Documented On 3 12:58PM ; [facility], [facility] Heartburn / Acid Reflux 2020 Last Documented On 3 12:58PM ; [facility], [facility] Hypertension 2020 Last Documented On 3 12:58PM ; [facility], [facility] Recent immunization for flu 2020 Last Documented On 3 12:58PM ; [facility], [facility] Recent immunization for pneumococcal pne umonia 2020 Last Documented On 3 12:58PM ; [facility] Sleep Apnea 2020 Last Documented On 3 12:58PM ; [facility], [facility] Total knee arthroplasty 2020 Last Documented On 3 12:58PM ; [facility] HIGH CHOLESTEROL ~HEARTBURN ~ACID REFLUX 01/31/2017 Last Documented On 3 12:58PM ; [facility] Arthritic joint problems 01/31/2017 Last Documented On 3 12:58PM ; [facility] History of depression 01/31/2017 Last Documented On 3 12:58PM ; [facility] History of diabetes mellitus 01/31/2017 Last Documented On 3 12:58PM ; [facility] A recent injection 01/31/2017 Last Documented On 3 12:58PM ; [facility], [facility] Family History Includes: Family History addressed during this encounter Description Last Updated Diabetes mellitus 11/06/2020 Last Documented On 3 12:58PM ; [facility], [facility] Family history of osteoporosis 1 Last Documented On 3 12:58PM ; [facility], [facility] Family history of heart disease 06/11/19 21 Last Documented On 3 12:58PM ; [facility], [facility] Family history of hypertension 1 Last Documented On 3 12:58PM ; [facility], [facility] Family history of rheumatoid arthritis 0 2020 Last Documented On 3 12:58PM ; [facility], [facility] Family history of cancer mother, father 02/13/2017 Last Documented On 3 12:58PM ; [facility], [facility] Fraternal history of diabetes mellitus B ROTHER 01/31/2017 Last Documented On 3 12:58PM ; [facility], [facility] Maternal history of family history of ca ncer MOTHER, FATHER 01/31/2017 Last Documented On 3 12:58PM ; [facility], [facility] Maternal history of family history of he art disease MOTHER 01/31/2017 Last Documented On 3 12:58PM ; [facility] Maternal history of hypertension MOTHER 01/31/2017 Last Documented On 3 12:58PM ; [facility] Maternal history of osteoporosis MOTHER 01/31/2017 Last Documented On 3 12:58PM ; [facility], [facility] Review of Systems Includes: Review of Systems from this encounter Systemic: Not feeling tired, no recent weight [...] No heartburn and no abdominal pain. No Indigestion. Acid Reflux. No Peptic Ulcer, no GI Stomach Bleed, and no Ulcers. Endocrine: No hot flashes and no muscle [...] and Immunologic: Complaint of seasonal allergic reaction. Mental Status Includes: Mental Status from this encounter Description No anxiety Functional Status Includes: Functional Status from this encounter No Functional Status Recorded Physical Exam Includes: Physical Exam from this encounter Allergies Includes: Active Allergies Substance Type Reaction Onset Date Resolved Date Statu s Clindamycin HCl Allergy 2020 Act cesilia Last Documented On 4 1:22PM ; [facility], [facility] Encounters Encounter Provider Location Date Check-In Time Check-Out Time Diagnosis Post Op Richie Verma PA-C [facility] 3 12:48PM 1:37PM Insurance Includes: Active Insurance Policies Plan Name Member ID Group # Subscriber Relationship Effect cesilia Dates 1 - Medicare Part B [facility] [id number] Salima Vu Self 05/18/2018 - Unknown 2 - [employer] [id number] Horace, David Bee Clinical Notes Includes: Clinical Notes from this encounter * Progress note Date Encounter Last Documented by 09/01/2022 Post Op Last documented on 09/01/2022; 1:39 PM, Richie Albrecht; [facility], [facility] Active Problems & Conditions - Foot Pain (Soft Tissue) - Joint Pain in the Left Knee Chief Complaint The Chief Complaint is: Left knee pain. Referred Here Referred by self. History of Present Illness Salima uV is a 67 year old female. - Allergy list reviewed - Problem list reviewed - Medication list reviewed Current Medication - Anoro Ellipta 62.5-25 MCG/ACT Inhalation Aerosol Powder Breath Activated 90 days, 0 refills - B6 Natural 100 MG Oral Tablet 0 days, 0 refills - Colace 100 MG Oral Capsule 1-2 tabs daily, 30 days, 2 refills - diazePAM 5 MG Oral Tablet [...] Oral Tablet 90 days, 0 refills - Mupirocin 2% External Ointment three times a day Apply to nostrils 3 time a day 5 days prior to surgery., 5 days, 0 refills - Myrbetriq 50 MG [...] No heartburn and no abdominal pain. No Indigestion. Acid Reflux. No Peptic Ulcer, no GI Stomach Bleed, and no Ulcers. Endocrine: No hot flashes and no muscle [...] allergic reaction. Physical Findings - Vitals taken 09/01/2022 12:58 pm dp Height 66 in Weight 169 lbs Body Mass Index 27.3 kg/m2 Body Surface Area 1.9 m2 Standard Measurements: - Patient was overweight. Incision well healed without erythema/purulence/drainage Mild residual swelling left knee range of motion is 0- to 125- Strength 5/5 TA/Gastroc/Quad Firing Palpable pulses DP/PT Assessment 8 weeks postop left TKA revision Therapy - Intervention and counseling on cessation of tobacco use. - Pt received screening for fall risk. Counseling/Education - Lose weight Plan Fall Risk Assessment: This patient has been [...] therapy has been discussed with the patient. she was doing relatively well. She is to continue with physical therapy and home exercise program. May gradually start to progress to activity as tolerated. Follow-up in the office in one year with repeat x-rays Notes This dictation was done with voice recognition software and may contain errors and omissions. Practice Management Use of tobacco assessment performed and patient screened for future fall risk documentation of any fall with injury in past year; No influenza immunization patient refused. Care Team - LUCA NOWAK MD - APPROVER
--- OUTSIDE RECORDS SUMMARY | 2024-07-04 15:14 | XMS_ITS | Clinical Summary ---
Author Organization [facility] Address [address] [place] [address] Phone Care Team Providers Care Children'S Literature Professor Name Role Phone SHE AUSTIN, LUCA Primary Care Provider [phone] Elham AUSTIN, Jesu Eduardo Unavailable + [phone] Reason for Visit and Chief Complaint The Chief Complaint is: left knee pain Problems Includes: Problems addressed during this encounter and other active Problems All Visits Onset Date Resolved Date Provider Condition S tatus Joint Pain in the Left Knee 11/11/2021 Douglas Stanley PA-C Active Last Documented On 2 10:33AM ; [facility] Foot Pain (Soft Tissue) 11/06/2020 Eloy Krause od DPM Active Last Documented On 1 1:14PM ; [facility] Plan of Treatment - Patient screened for future fall risk: documentation of any fall with injury in past year - Last Documented On 09/05/2023 2:10PM ; [facility] Fall Risk Assessment: This patient has been [...] with the patient. - Last Documented On 09/05/2023 2:10PM ; [facility] Patient is 1 year postop left total knee arthroplasty. Overall doing well. Having some difficulty with rotation during ambulating due to significant left ankle pes planus. Patient wears good healthy shoes. Did not tolerate Marissa left ankle brace. Continue with ad nicole activity. Follow up in the office in 3-5 years or as needed - Last Documented On 09/05/2023 2:10PM ; [facility] Instructions to patient Intervention and counseling on cessation of tobacco use Last Documented On 4 1:23PM ; [facility] Lose weight Last Documented On 4 1:23PM ; [facility] Assessments Includes: Assessments from this encounter Findings - Overweight - Last Documented On 09/05/2023 2:10PM ; [facility] 1 year postop left TKA - Last Documented On 09/05/2023 2:10PM ; [facility] Instructions Includes: Instructions from this encounter Instructions to patient Intervention and counseling on cessation of tobacco use Last Documented On 4 1:23PM ; [facility] Lose weight Last Documented On 4 1:23PM ; [facility] Medical Equipment - Implanted Devices Includes: Current Devices No Medical Equipment Recorded Medications Includes: Medications discussed during this encounter and other current Medications Discontinued / Stopped on this date Jesu Lizarraga MD on 05/27/2022 Mupirocin 2% External Ointment Provider: Jesu Lizarraga MD Diagnosis: Last Documented On 4 1:38PM By Dee Estes ; [facility] Current Medications (continue as prescribed) Fexofenadine HCl 180 MG Oral Tablet 02/03/2022 Provi constanza: Diagnosis: Last Documented On 2 4:26PM By [facility]i [facility] B6 Natural 100 MG Oral Tablet 02/03/2022 Provider: Diagnosis: Last Documented On 2 4:27PM By Sarahi [facility] Vitamin B12 100 MCG Oral Tablet 02/03/2022 Provider: Diagnosis: Last Documented On 2 4:27PM By Sarahi Frank ; [facility] Fluticasone Propionate 50 MC G/ACT Nasal Suspension 01/25/2022 Provider: LUCA NOWAK MD Diagnosis: Last Documented On 2 4:28PM By Sarahi Frank ; [facility] hydrOXYzine Pamoate 25 MG Oral Capsule 01/21/2022 Pr ovider: LUCA NOWAK MD Diagnosis: Last Documented On 2 4:26PM By Sarahi Frank ; [facility], [facility] Meloxicam 7.5 MG Oral Tablet 01/20/2022 Provider: LUCA NOWAK MD Diagnosis: Last Documented On 2 4:26PM By Sarahi Frank ; [facility], [facility] Viibryd 40 MG Oral Tablet 01/20/2022 Provider: [facility] NOWAK MD Diagnosis: Last Documented On 2 4:26PM By Sarahi Frank ; [facility], [facility] diazePAM 5 MG Oral Tablet 01/13/2022 Provider: [facility] NOWAK MD Diagnosis: Last Documented On 2 10:31AM By Sarahi Frank ; [facility] Pravastatin Sodium 40 MG Oral Tablet 01/11/2022 Prov ider: LUCA NOWAK MD Diagnosis: Last Documented On 2 4:26PM By Sarahi Frank ; [facility] metFORMIN HCl 500 MG Oral Tablet 01/05/2022 Provider : LUCA NOWAK MD Diagnosis: Last Documented On 2 4:26PM By Sarahi Frank ; [facility], [facility] Anoro Ellipta 62.5-25 MCG/AC T Inhalation Aerosol Powder Breath Activated 01/04/2022 Provider: LUCA NOWAK MD Diagnosis: Last Documented On 2 4:28PM By Sarahi Frank ; [facility] Myrbetriq 50 MG Oral Tablet Extended Release 24 Hour 11/29/2021 Provider: LUCA NOWAK MD Diagnosis: Last Documented On 2 4:26PM By Sarahi Frank ; [facility] Jardiance 25 MG Oral Tablet 11/29/2021 Provider: LUCA NOWAK MD Diagnosis: Last Documented On 2 4:26PM By Sarahi Frank ; [facility] Past Medications on file Aspirin 81 MG Oral Tablet Delayed Release 07/01/2022 - 08/12/2022 Provider: Jesu Lizarraga MD Diagnosis: twice a day Last Documented On 3 11:10AM By Jerry Lizarraga ; [facility] traMADol HCl 50 MG Oral Tablet 06/29/2022 - 07/04/2022 Provider: Jesu aviles MD Diagnosis: 1-2 po q 4-6h Last Documented On 3 10:47AM By Jerry Lizarraga ; [facility] Ondansetron HCl 4 MG Oral Tablet 06/29/2022 - 07/04/2022 Provider: Jesu Lizarraga MD Diagnosis: 5mrm7-2s Last Documented On 3 10:47AM By Jerry Lizarraga ; [facility] Meloxicam 15 MG Oral Tablet 06/29/2022 - 07/29/2022 Provider: Jesu aviles MD Diagnosis: once a day Last Documented On 3 10:46AM By Jerry Lizarraga ; [facility] Colace 100 MG Oral Capsule 06/29/2022 - 09/27/2022 Provider: Jesu aviles MD Diagnosis: 1-2 tabs daily Last Documented On 3 10:46AM By Jerry Lizarraga ; [facility] Cefadroxil 500 MG Oral Capsule 06/29/2022 - 07/02/2022 Provider: Jesu aviles MD Diagnosis: twice a day Last Documented On 3 10:46AM By Jerry Lizarraga ; [facility] Acetaminophen 500 MG Oral Tablet 06/29/2022 - 07/29/2022 Provider: Jesu Lizarraga MD Diagnosis: 2 three times a day Last Documented On 3 10:46AM By Jerry Lizarraga ; [facility] oxyCODONE HCl 5 MG Oral Tablet 06/29/2022 - 07/04/2022 Provider: Jesu aviles MD Diagnosis: 1-2 po q 4-6h Last Documented On 3 10:47AM By Jerry Lizarraga ; [facility] Neurontin 300MG Oral Capsule, conventional 11/23/2016 - 02/21/2017 Provider: Jesu Lizarraga MD Diagnosis: Aftercare follow ing joint replacement surgery 1 every bedtime FOR SURGERY Last Documented On 7 2:58PM By Nataly Sinclair ; [facility] OxyCODONE HCl 5MG Oral Tablet 11/23/2016 - 12/03/2016 Provider: Jesu Lizarraga MD Diagnosis: Aftercare follow ing joint replacement surgery 1-2 po q 4-6h FOR SURGERY Last Documented On 7 2:59PM By Nataly Sinclair ; [facility] TraMADol HCl 50MG Oral Tablet 11/23/2016 - 12/06/2016 Provider: Jesu Lizarraga MD Diagnosis: Aftercare follow ing joint replacement surgery 2 tablets every 6 hours FOR SURGERY Last Documented On 7 2:59PM By Nataly Sinclair ; [facility] Medications Administered Includes: Administered Medications from this encounter No Administered Medications Recorded Vital Signs Includes: Vital Signs from this encounter Vital Name 09/05/2023 01:23P Height (in) 66 Weight (lb) 169 Body Mass Index 27.3 Body Surface Area 1.9 Note: ab Last Documented: On 09/05/2023 1:23PM ; [facility] Results Includes: Results discussed during this encounter No Results Recorded For Specified Dates History of Present Illness Includes: History of Present Illness from this encounter SHIREEN Vu is a 68 year old female. - Allergy list reviewed - Problem list reviewed - Medication list reviewed - - Review of medications documented Social History Description Last Updated No recent change in diet 07/19/2022 Last Documented On 4 1:23PM ; [facility] Yes, current smoker. 07/19/2022 Last Documented On 4 1:23PM ; [facility] Not a tobacco non-user 02/03/2022 Last Documented On 4 1:23PM ; [facility] Tobacco use 11/11/2021 Last Documented On 4 1:23PM ; [facility] Non-smoker 2020 Last Documented On 4 1:23PM ; [facility] Yes, current smoker. 2020 Last Documented On 4 1:23PM ; [facility] Caffeine use 01/31/2017 Last Documented On 4 1:23PM ; [facility] Current smoker 01/31/2017 Last Documented On 4 1:23PM ; [facility] No recent change in diet 01/31/2017 Last Documented On 4 1:23PM ; [facility] Not exercising regularly 01/31/2017 Last Documented On 4 1:23PM ; [facility] Not using alcohol 01/31/2017 Last Documented On 4 1:23PM ; [facility] Not using drugs 01/31/2017 Last Documented On 4 1:23PM ; [facility] Smoking status : Current everyday smoker 01/31/2017 Last Documented On 4 1:23PM ; [facility], [facility] Procedures and Surgical History Includes: Procedures from this encounter Procedures Code Diagnosis Performing Provider Service Location Service Date X-RAY EXAM OF KNEE 3 VIEWS (LEFT) 28116 Aftercare following joint replacement surgery, Presence of left artificial knee joint Richie Verma PA-C [facility] 09/05/2023 Last Documented On 4 12:52PM ; [facility] intervention and 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 4000F Last Documented On 4 1:23PM ; [facility] use of tobacco assessment performed 1000F Last Documented On 4 1:23PM ; [facility] no influenza immunization patient refuse d Last Documented On 4 1:23PM ; [facility], [facility] patient screened for future fall risk: documentation of any fall with injury in past year 1100F Last Documented On 4 1:23PM ; [facility] Pt received screening for fall risk G8270 Last Documented On 4 1:23PM ; [facility] Surgical History Last Updated History of total knee arthroplasty 01/31 Last Documented On 4 1:23PM ; [facility] Medical History Includes: Medical History addressed during this encounter Description Last Updated History of Hypertension 02/03/2022 Last Documented On 4 1:23PM ; [facility] History of arthritis 11/12/2021 Last Documented On 4 1:23PM ; [facility] History of Heartburn / Acid Reflux 11/12 Last Documented On 4 1:23PM ; [facility] History of Sleep Apnea 11/12/2021 Last Documented On 4 1:23PM ; [facility] Use of CPAP 11/12/2021 Last Documented On 4 1:23PM ; [facility] Arthritis 2020 Last Documented On 4 1:23PM ; [facility] Heartburn / Acid Reflux 2020 Last Documented On 4 1:23PM ; [facility] Hypertension 2020 Last Documented On 4 1:23PM ; [facility] Recent immunization for flu 2020 Last Documented On 4 1:23PM ; [facility] Recent immunization for pneumococcal pne umonia 2020 Last Documented On 4 1:23PM ; [facility] Sleep Apnea 2020 Last Documented On 4 1:23PM ; [facility] Total knee arthroplasty 2020 Last Documented On 4 1:23PM ; [facility] HIGH CHOLESTEROL ~HEARTBURN ~ACID REFLUX 01/31/2017 Last Documented On 4 1:23PM ; [facility] Arthritic joint problems 01/31/2017 Last Documented On 4 1:23PM ; [facility] History of depression 01/31/2017 Last Documented On 4 1:23PM ; [facility] History of diabetes mellitus 01/31/2017 Last Documented On 4 1:23PM ; [facility] A recent injection 01/31/2017 Last Documented On 4 1:23PM ; [facility] Family History Includes: Family History addressed during this encounter Description Last Updated Diabetes mellitus 11/06/2020 Last Documented On 4 1:23PM ; [facility] Family history of osteoporosis 1 Last Documented On 4 1:23PM ; [facility] Family history of heart disease 06/11/19 21 Last Documented On 4 1:23PM ; [facility] Family history of hypertension 1 Last Documented On 4 1:23PM ; [facility] Family history of rheumatoid arthritis 0 2020 Last Documented On 4 1:23PM ; [facility] Family history of cancer mother, father 02/13/2017 Last Documented On 4 1:23PM ; [facility] Fraternal history of diabetes mellitus B ROTHER 01/31/2017 Last Documented On 4 1:23PM ; [facility] Maternal history of family history of ca ncer MOTHER, FATHER 01/31/2017 Last Documented On 4 1:23PM ; [facility] Maternal history of family history of he art disease MOTHER 01/31/2017 Last Documented On 4 1:23PM ; [facility] Maternal history of hypertension MOTHER 01/31/2017 Last Documented On 4 1:23PM ; [facility] Maternal history of osteoporosis MOTHER 01/31/2017 Last Documented On 4 1:23PM ; [facility] Review of Systems Includes: Review of [...] cesilia Last Documented On 4 1:22PM ; [facility], [facility] Encounters Encounter Provider Location Date Check-In Time Check-Out Time Diagnosis Follow Up Richie Verma PA-C [facility] 09/05/19 24 1:20PM 2:11PM Overweight Insurance Includes: Active Insurance Policies Plan Name Member ID Group # Subscriber Relationship Effect cesilia Dates 1 - Medicare Part B [facility] [id number] Salima Vu Self 05/18/2018 - Unknown 2 - [employer] [id number] David Vu Clinical Notes Includes: Clinical Notes from this encounter * Progress note Date Encounter Last Documented by 09/05/2023 Follow Up Last documented on 09/05/2023; 2:10 PM, Richie Verma PA-C; [facility], [facility] Active Problems & Conditions - Foot [...] Care Team - LUCA NOWAK MD - REMOTE SENSING SURVEYOR
--- OUTSIDE RECORDS SUMMARY | 2024-07-04 15:14 | XMS_ITS ---
Care Plan - [facility], [facility] Created on: July 04, 2024 Salima Vu Derik : 1955 Sex: Female Author Organization [facility] Address [address] [place] [address] Phone Care Team Providers Care Manufacturing Plant Manager Name Role Phone SHE AUSTIN, LUCA Primary Care Provider [phone] Elham AUSTIN, Jesu Eduardo Unavailable [phone]
--- OUTSIDE RECORDS SUMMARY | 2024-07-04 15:14 | XMS_ITS | Clinical Summary ---
Author Organization [facility] , [facility] Address [address] [place] [address] Phone Care Team Providers Care Employment Advisor Name Role Phone SHE AUSTIN, LUCA Primary Care Provider [phone] Elham AUSTIN, Jesu Eduardo Unavailable [phone] Reason for Visit and Chief Complaint [facility] Problems Includes: Problems addressed during this encounter and other active Problems All Visits Onset Date Resolved Date Provider Condition S tatus Joint Pain in the Left Knee 11/11/2021 Douglas Stanley PA-C Active Last Documented On 2 10:33AM ; [facility], [facility] Foot Pain (Soft Tissue) 11/06/2020 Eloy Krause od DPM Active Last Documented On 1 1:14PM ; [facility], [facility] Plan of Treatment No Plan of Treatment [...] On 2 4:26PM By Sarahi Frank ; [facility], [facility] B6 Natural 100 MG Oral Tablet 02/03/2022 Provider: Diagnosis: Last Documented On 2 4:27PM By Sarahi Frank ; [facility], [facility] Vitamin B12 100 MCG Oral Tablet 02/03/2022 Provider: Diagnosis: Last Documented On 2 4:27PM By Sarahi Frank ; [facility], [facility] Fluticasone Propionate 50 MC G/ACT Nasal Suspension 01/25/2022 Provider: LUCA NOWAK MD Diagnosis: Last Documented On 2 4:28PM By Sarahi Frank ; [facility], [facility] hydrOXYzine Pamoate 25 MG Oral Capsule 01/21/2022 Pr ovider: LUCA NOWAK MD Diagnosis: Last Documented On 2 4:26PM By Sarahi Frank ; [facility], [facility] Meloxicam 7.5 MG Oral Tablet 01/20/2022 Provider: LUCA NOWAK MD Diagnosis: Last Documented On 2 4:26PM By Sarahi Frank ; [facility], [facility] Viibryd 40 MG Oral Tablet 01/20/2022 Provider: [facility] NOW[facility] MD Diagnosis: Last Documented On 2 4:26PM By Sarahi Frank ; [facility], [facility] diazePAM 5 MG Oral Tablet 01/13/2022 Provider: [facility] NOWAK MD Diagnosis: Last Documented On 2 10:31AM By Sarahi Frank ; [facility], [facility] Pravastatin Sodium 40 MG Oral Tablet 01/11/2022 Prov ider: LUCA NOWAK MD Diagnosis: Last Documented On 2 4:26PM By Sarahi Frank ; [facility], [facility] metFORMIN HCl 500 MG Oral Tablet 01/05/2022 Provider : LUCA NOWAK MD Diagnosis: Last Documented On 2 4:26PM By Sarahi Frank ; [facility], [facility] Anoro Ellipta 62.5-25 MCG/AC T Inhalation Aerosol Powder Breath Activated 01/04/2022 Provider: LUCA NOWAK MD Diagnosis: Last Documented On 2 4:28PM By Sarahi Frank ; [facility] Myrbetriq 50 MG Oral Tablet Extended Release 24 Hour 11/29/2021 Provider: LUCA NOWAK MD Diagnosis: Last Documented On 2 4:26PM By Sarahi Frank ; [facility], [facility] Jardiance 25 MG Oral Tablet 11/29/2021 Provider: LUCA NOWAK MD Diagnosis: Last Documented On 2 4:26PM By Sarahi Frank ; [facility], [facility] Medications Administered Includes: Administered Medications from [...] cesilia Last Documented On 4 1:22PM ; [facility], [facility] Encounters Encounter Provider Location Date Check-In Time Check-Out Time Diagnosis [facility] Jesu Lizarraga MD Surgery 3 1:44PM 11:59PM Insurance Includes: Active Insurance Policies Plan Name Member ID Group # Subscriber Relationship Effect cesilia Dates 1 - Medicare Part B [facility] [id number] Salima O Stone Self 05/18/2018 - Unknown 2 - [employer] [id number] Stone, David K Clinical Notes Includes: Clinical Notes from this encounter No Clinical Notes Recorded
--- OUTSIDE RECORDS SUMMARY | 2024-07-04 15:15 | XMS_ITS | Clinical Summary ---
Author Organization [facility] , [facility] Address [address] [place] [address] Phone Care Team Providers Care Polisher And Sander Name Role Phone SHE AUSTIN, LUCA Primary Care Provider [phone] Elham AUSTIN, Jesu Eduardo Unavailable [phone] Reason for Visit and Chief Complaint The Chief Complaint is: left knee pain Problems Includes: Problems addressed during this encounter and other active Problems All Visits Onset Date Resolved Date Provider Condition S tatus Joint Pain in the Left Knee 11/11/2021 Douglas Stanley PA-C Active Last Documented On 2 10:33AM ; [facility] Foot Pain (Soft Tissue) 11/06/2020 Eloy Krause od DPM Active Last Documented On 1 1:14PM ; [facility] Plan of Treatment Fall Risk Assessment: This [...] with the patient. - Last Documented On 07/21/2022 10:53AM ; [facility] patient is doing very well. She is to continue with physical therapy and home exercise program. Continue to adhere to her postoperative protocols. Follow-up in the office in 6 weeks - Last Documented On 07/21/2022 10:53AM ; [facility] Instructions to patient Intervention and counseling on cessation of tobacco use Last Documented On 3 10:03AM ; [facility], [facility] Lose weight Last Documented On 3 10:03AM ; [facility], [facility] Assessments Includes: Assessments from this encounter Findings 3 weeks postop left TKA - Last Documented On 07/21/2022 10:53AM ; [facility], [facility] Instructions Includes: Instructions from this encounter Instructions to patient Intervention and counseling on cessation of tobacco use Last Documented On 3 10:03AM ; [facility], [facility] Lose weight Last Documented On 3 10:03AM ; [facility], [facility] Medical Equipment - Implanted Devices Includes: Current Devices No Medical Equipment Recorded Medications Includes: Medications discussed during this encounter and other current Medications Current Medications (continue as prescribed) Fexofenadine HCl 180 MG Oral Tablet 02/03/2022 Provi constanza: Diagnosis: Last Documented On 2 4:26PM By Sarahi Frank ; [facility], [facility] B6 Natural 100 MG Oral Tablet 02/03/2022 Provider: Diagnosis: Last Documented On 2 4:27PM By Sarahi Frank ; [facility], [facility] Vitamin B12 100 MCG Oral Tablet 02/03/2022 Provider: Diagnosis: Last Documented On 2 4:27PM By Sarahi Frank ; [facility], [facility] Fluticasone Propionate 50 MC G/ACT Nasal Suspension 01/25/2022 Provider: LUCA NOWAK MD Diagnosis: Last Documented On 2 4:28PM By Sarahi Frank ; [facility], [facility] hydrOXYzine Pamoate 25 MG Oral Capsule 01/21/2022 Pr ovider: LUCA NOWAK MD Diagnosis: Last Documented On 2 4:26PM By Sarahi Frank ; [facility], [facility] Meloxicam 7.5 MG Oral Tablet 01/20/2022 Provider: LUCA NOWAK MD Diagnosis: Last Documented On 2 4:26PM By Sarahi Frank ; [facility], [facility] Viibryd 40 MG Oral Tablet 01/20/2022 Provider: [facility] NOWAK MD Diagnosis: Last Documented On 2 4:26PM By Sarahi Frank ; [facility], [facility] diazePAM 5 MG Oral Tablet 01/13/2022 Provider: [facility] NOWAK MD Diagnosis: Last Documented On 2 10:31AM By Sarahi Frank ; [facility], [facility] Pravastatin Sodium 40 MG Oral Tablet 01/11/2022 Prov ider: LUCA NOWAK MD Diagnosis: Last Documented On 2 4:26PM By Sarahi Frank ; [facility], [facility] metFORMIN HCl 500 MG Oral Tablet 01/05/2022 Provider : LUCA NOWAK MD Diagnosis: Last Documented On 2 4:26PM By Sarahi Frank ; [facility], [facility] Anoro Ellipta 62.5-25 MCG/AC T Inhalation Aerosol Powder Breath Activated 01/04/2022 Provider: LUCA NOWAK MD Diagnosis: Last Documented On 2 4:28PM By Sarahi Frank ; [facility], [facility] Myrbetriq 50 MG Oral Tablet Extended Release 24 Hour 11/29/2021 Provider: LUCA NOWAK MD Diagnosis: Last Documented On 2 4:26PM By Sarahi Frank ; [facility], [facility] Jardiance 25 MG Oral Tablet 11/29/2021 Provider: LUCA NOWAK MD Diagnosis: Last Documented On 2 4:26PM By Sarahi Frank ; [facility], [facility] Past Medications on file Aspirin 81 MG Oral Tablet Delayed Release 07/01/2022 - 08/12/2022 Provider: Jesu Lizarraga MD Diagnosis: twice a day Last Documented On 3 11:10AM By Jerry Lizarraga ; [facility], [facility] traMADol HCl 50 MG Oral Tablet 06/29/2022 - 07/04/2022 Provider: Jesu aviles MD Diagnosis: 1-2 po q 4-6h Last Documented On 3 10:47AM By Jerry Lizarraga ; [facility], [facility] Ondansetron HCl 4 MG Oral Tablet 06/29/2022 - 07/04/2022 Provider: Jesu Lizarraga MD Diagnosis: [id number] Last Documented On 3 10:47AM By Jerry Lizarraga ; [facility], [facility] Meloxicam 15 MG Oral Tablet 06/29/2022 - 07/29/2022 Provider: Jesu aviles MD Diagnosis: once a day Last Documented On 3 10:46AM By Jerry Lizarraga ; [facility] Colace 100 MG Oral Capsule 06/29/2022 - 09/27/2022 Provider: Jesu aviles MD Diagnosis: 1-2 tabs daily Last Documented On 3 10:46AM By Jerry Lizarraga ; [facility] Cefadroxil 500 MG Oral Capsule 06/29/2022 - 07/02/2022 Provider: Jesu aviles MD Diagnosis: twice a day Last Documented On 3 10:46AM By Jerry Lizarraga ; [facility] Acetaminophen 500 MG Oral Tablet 06/29/2022 - 07/29/2022 Provider: Jesu Lizarraga MD Diagnosis: 2 three times a day Last Documented On 3 10:46AM By Jerry Lizarraga ; [facility] oxyCODONE HCl 5 MG Oral Tablet 06/29/2022 - 07/04/2022 Provider: Jesu aviles MD Diagnosis: 1-2 po q 4-6h Last Documented On 3 10:47AM By Jerry Lizarraga ; [facility] Neurontin 300MG Oral Capsule, conventional 11/23/2016 - 02/21/2017 Provider: Jesu Lizarraga MD Diagnosis: Aftercare follow ing joint replacement surgery 1 every bedtime FOR SURGERY Last Documented On 7 2:58PM By Nataly Sinclair ; [facility] OxyCODONE HCl 5MG Oral Tablet 11/23/2016 - 12/03/2016 Provider: Jesu Lizarraga MD Diagnosis: Aftercare follow ing joint replacement surgery 1-2 po q 4-6h FOR SURGERY Last Documented On 7 2:59PM By Nataly Sinclair ; [facility] TraMADol HCl 50MG Oral Tablet 11/23/2016 - 12/06/2016 Provider: Jesu Lizarraga MD Diagnosis: Aftercare follow ing joint replacement surgery 2 tablets every 6 hours FOR SURGERY Last Documented On 7 2:59PM By Nataly Sincliar ; [facility] Medications Administered Includes: Administered Medications from this encounter No Administered Medications Recorded Vital Signs Includes: Vital Signs from this encounter Vital Name 07/21/2022 10:03A Height (in) 66 Weight (lb) 170 Body Mass Index 27.4 Body Surface Area 1.9 Note: dp Last Documented: On 07/21/2022 10:21A M ; [facility] Results Includes: Results [...] in diet 07/19/2022 Last Documented On 3 10:03AM ; [facility] Yes, current smoker. 07/19/2022 Last Documented On 3 10:03AM ; [facility] Not a tobacco non-user 02/03/2022 Last Documented On 3 10:03AM ; [facility] Tobacco use 11/11/2021 Last Documented On 3 10:03AM ; [facility] Non-smoker 2020 Last Documented On 3 10:03AM ; [facility] Yes, current smoker. 2020 Last Documented On 3 10:03AM ; [facility] Caffeine use 01/31/2017 Last Documented On 3 10:03AM ; [facility] Current smoker 01/31/2017 Last Documented On 3 10:03AM ; [facility] No recent change in diet 01/31/2017 Last Documented On 3 10:03AM ; [facility] Not exercising regularly 01/31/2017 Last Documented On 3 10:03AM ; [facility] Not using alcohol 01/31/2017 Last Documented On 3 10:03AM ; [facility] Not using drugs 01/31/2017 Last Documented On 3 10:03AM ; [facility] Smoking status : Current everyday smoker 01/31/2017 Last Documented On 3 10:03AM ; [facility] Procedures and Surgical History Includes: Procedures from this encounter Procedures Code Diagnosis Performing Provider Service L ocation Service Date intervention and counseling on cessation of tobacco use 4000F Last Documented On 3 10:03AM ; [facility], [facility] use of tobacco assessment performed 1000F Last Documented On 3 10:03AM ; [facility], [facility] no influenza immunization patient refuse d Last Documented On 3 10:03AM ; [facility], [facility] patient screened for future fall risk: documentation of any fall with injury in past year 1100F Last Documented On 3 10:03AM ; [facility], [facility] Pt received screening for fall risk G8270 Last Documented On 3 10:03AM ; [facility], [facility] Surgical History Last Updated History of total knee arthroplasty 01/31 Last Documented On 3 10:03AM ; [facility], [facility] Medical History Includes: Medical History addressed during this encounter Description Last Updated History of Hypertension 02/03/2022 Last Documented On 3 10:03AM ; [facility], [facility] History of arthritis 11/12/2021 Last Documented On 3 10:03AM ; [facility], [facility] History of Heartburn / Acid Reflux 11/12 Last Documented On 3 10:03AM ; [facility], [facility] History of Sleep Apnea 11/12/2021 Last Documented On 3 10:03AM ; [facility], [facility] Use of CPAP 11/12/2021 Last Documented On 3 10:03AM ; [facility], [facility] Arthritis 2020 Last Documented On 3 10:03AM ; [facility], [facility] Heartburn / Acid Reflux 2020 Last Documented On 3 10:03AM ; [facility], [facility] Hypertension 2020 Last Documented On 3 10:03AM ; [facility], [facility] Recent immunization for flu 2020 Last Documented On 3 10:03AM ; [facility], [facility] Recent immunization for pneumococcal pne umonia 2020 Last Documented On 3 10:03AM ; [facility] Sleep Apnea 2020 Last Documented On 3 10:03AM ; [facility], [facility] Total knee arthroplasty 2020 Last Documented On 3 10:03AM ; [facility] HIGH CHOLESTEROL ~HEARTBURN ~ACID REFLUX 01/31/2017 Last Documented On 3 10:03AM ; [facility], [facility] Arthritic joint problems 01/31/2017 Last Documented On 3 10:03AM ; [facility] History of depression 01/31/2017 Last Documented On 3 10:03AM ; [facility] History of diabetes mellitus 01/31/2017 Last Documented On 3 10:03AM ; [facility], [facility] A recent injection 01/31/2017 Last Documented On 3 10:03AM ; [facility], [facility] Family History Includes: Family History addressed during this encounter Description Last Updated Diabetes mellitus 11/06/2020 Last Documented On 3 10:03AM ; [facility], [facility] Family history of osteoporosis 1 Last Documented On 3 10:03AM ; [facility], [facility] Family history of heart disease 06/11/19 21 Last Documented On 3 10:03AM ; [facility], [facility] Family history of hypertension 1 Last Documented On 3 10:03AM ; [facility], [facility] Family history of rheumatoid arthritis 0 2020 Last Documented On 3 10:03AM ; [facility], [facility] Family history of cancer mother, father 02/13/2017 Last Documented On 3 10:03AM ; [facility], [facility] Fraternal history of diabetes mellitus B ROTHER 01/31/2017 Last Documented On 3 10:03AM ; [facility], [facility] Maternal history of family history of ca ncer MOTHER, FATHER 01/31/2017 Last Documented On 3 10:03AM ; [facility], [facility] Maternal history of family history of he art disease MOTHER 01/31/2017 Last Documented On 3 10:03AM ; [facility] Maternal history of hypertension MOTHER 01/31/2017 Last Documented On 3 10:03AM ; [facility] Maternal history of osteoporosis MOTHER 01/31/2017 Last Documented On 3 10:03AM ; [facility] Review of Systems Includes: Review of [...] cesilia Last Documented On 4 1:22PM ; [facility] Encounters Encounter Provider Location Date Check-In Time Check-Out Time Diagnosis Post Op Richie Verma PA-C [facility] 3 9:37AM 10:54AM Insurance Includes: Active Insurance Policies Plan Name Member ID Group # Subscriber Relationship Effect cesilia Dates 1 - Medicare Part B [facility] [id number] Salima Vu Self 05/18/2018 - Unknown 2 - [employer] [id number] David Vu Clinical Notes Includes: Clinical Notes from this encounter * Progress note Date Encounter Last Documented by 07/21/2022 Post Op Last documented on 07/21/2022; 10:53 AM, Richie Verma PA-C; [facility], [facility] Active Problems & Conditions - Foot Pain (Soft Tissue) - Joint Pain in the Left Knee Chief Complaint The Chief Complaint is: Left knee pain. Referred Here Referred by self. History of Present Illness Salima Vu is a 67 year old female. - Allergy list reviewed - Problem list reviewed - Medication list reviewed Current Medication - Acetaminophen 500 MG Oral Tablet 2 three times a day, 30 days, 0 refills - Anoro Ellipta 62.5-25 MCG/ACT Inhalation Aerosol Powder Breath Activated 90 days, 0 refills - Aspirin 81 MG Oral Tablet Delayed Release twice a day, 42 days, 0 refills - B6 Natural 100 [...] Tablet 90 days, 0 refills - Meloxicam 15 MG Oral Tablet once a day, 30 days, 0 refills - Meloxicam 7.5 MG [...] allergic reaction. Physical Findings - Vitals taken 07/21/2022 10:03 am dp Height 66 in Weight 170 lbs Body Mass Index 27.4 kg/m2 Body Surface Area 1.9 m2 Standard Measurements: - Patient was overweight. Incision well healed without erythema/purulence/drainage Mild residual swelling left knee range of motion 0- to 120- Strength 5/5 TA/Gastroc/Quad Firing Palpable pulses DP/PT Tests 3 views of the left knee taken today demonstrate a well fixed well-positioned total knee arthroplasty. No sign of loosening or prosthetic complications Assessment 3 weeks postop left TKA Therapy - Intervention and [...] therapy has been discussed with the patient. patient is doing very well. She is to continue with physical therapy and home exercise program. Continue to adhere to her postoperative protocols. Follow-up in the office in 6 weeks Notes This dictation was done with voice recognition software and may contain errors and omissions. Practice Management Use of tobacco assessment performed and patient screened for future fall risk documentation of any fall with injury in past year; No influenza immunization patient refused. Care Team - LUCA NOWAK MD - [employer] DES[employer]
== END 2024-07-04 23:59 | disposition home or self-care (01) ==
LOC: RAD 15:12
PROVIDERS: PCP Internal Medicine Adolescent Medicine; Visit Provider Internal Medicine Pulmonary Disease
DX: F17.210 Nicotine dependence, cigarettes, uncomplicated (principal)
CPT/HCPCS: 71271

== ENCOUNTER 2025-01-21 12:43 | Outpatient (CLI) | payer MEDICARE, OTHER, SELFPAY ==
--- OUTSIDE RECORDS SUMMARY | 2024-06-22 16:30 | XMS_ITS ---
Author Organization [facility] Address [address] [facility] [address] [place] [address] Care Team Providers Care Product/Device Technologist Name Role Phone Elver James Primary Care Provider Migration, Provider Unavailable Unavailable Allergies Allergen (clinical drug ingredient) Drug/Non Drug Allergy documented on EMR Reaction Allergy Type Onset Date Status clindamycin Clindamycin profuse diarrhea Drug Allergy Active REASON FOR VISIT [facility] To [facility] Conversion Encounter Medications Medication SIG (Take, Route, Frequency, Duration) Notes Start Date End Date Status Pravastatin Sodium 40 MG 1 tab(s) orally once a day; Duration: 90 days Active predniSONE 20 MG 3 tabs orally once a day for two days, then 2 daily for 2 days, then one daily for two days; Duration: 6 day(s) 06/11/2024 Active Myrbetriq 50 MG TAKE 1 TABLET DAILY Active Promethazine-DM 6.25-15 MG/5ML 5 mL orally every 6 hours; Duration: 10 days 06/11/2024 Active Jardiance 25 MG 1 tab orally once a day in the morning; Duration: 90 days Active Doxycycline Hyclate 100 MG 1 cap(s) orally 2 times a day; Duration: 7 days 06/11/2024 Active NEBIVOLOL 5 MG 1 TAB ORALLY ONCE A DAY; Duration: 90 DAYS *Please review for potential replacement for e-prescription and drug interaction check* Active Viibryd 40 MG 1 tab(s) orally once a day; Duration: 90 days Active hydrOXYzine Pamoate 25 MG 1 cap(s) orally once a day; Duration: 90 days Active clonazePAM 0.5 MG 1/2 tab(s) orally 3 times a day; Duration: 30 days 03/01/2024 Active Urea 40 % 1 kristi applied topically 2 times a day; Duration: 30 day(s) Active Fluticasone Propionate 50 MCG/ACT 1 spray(s) intranasally once a day; Duration: 90 days Active C-PAP MASK AND SUPPLIES DIRECTED; Duration: 30 DAYS *Please review for potential replacement for e-prescription and drug interaction check* 04/16/2021 Active Meloxicam 7.5 MG 1 tab(s) orally once a day; Duration: 90 days Active Ciclopirox 8 % 1 kristi applied topically once a day; Duration: 90 days 01/09/2024 Active Vitamin E 1 TAB(S) ORALLY ONCE A DAY *Please review and pick correct strength-formulati on from [employer] options. If intended option is not shown, discontinue and re-order from Quick Search* Active Vitamin B6 1 TAB(S) ORALLY ONCE A DAY *Please review and pick correct strength-formulati on from [employer] options. If intended option is not shown, discontinue and re-order from Quick Search* Active PROAIR HFA 90MCG USE 2 INHALATIONS FOUR TIMES A DAY; Duration: 90 DAYS *Please review for potential replacement for e-prescription and drug interaction check* Active C-PAP MASK AND SUPPLIES DIRECTED DX: INOCENCIA; Duration: 30 DAYS *Please review for potential replacement for e-prescription and drug interaction check* 01/08/2020 Active Fexofenadine HCl 180 MG 1 tab(s) orally once a day Active Vitamin B-12 1000 MCG 1 tab(s) orally once a day Active NexIUM 40 MG TAKE 1 CAPSULE DAILY Active Multivitamin MULTIPLE VITAMINS 1 CAP(S) ORALLY ONCE A DAY *Please review and pick correct strength-formulati on from [employer] options. If intended option is not shown, discontinue and re-order from Quick Search* Active C-PAP SUPPLIES DIRECTED DIRECTED AT NIGHT *Please review for potential replacement for e-prescription and drug interaction check* 08/08/2017 Active Encounters Encounter Location Date Provider Diagnosis [facility] [address] [place] [address] 06/22/2024 Provider Migration COPD exacerbation J44.1 Assessments Encounter Date Diagnosis (ICD Code) Assessment Notes Treatment Notes Treatment Clinical Notes Section Notes 06/22/2024 COPD exacerbation (ICD-10 - J44.1) Plan Of Treatment Medication Medication Name Sig Start Date Stop Date Notes predniSONE 20 MG 3 tabs orally once a day for two days, then 2 daily for 2 days, then one daily for two days; Duration: 6 day(s) 06/11/2024 Promethazine-DM 6.25-15 MG/5ML 5 mL oral ly every 6 hours; Duration: 10 days 06/11/2024 Doxycycline Hyclate 100 MG 1 cap(s) oral ly 2 times a day; Duration: 7 days 06/11/2024 Next Appt Details Provider Name:Elver James, 03/04/2025 11:30:00 AM, [address] [place] [address], [phone], Progress Notes * CHRISNiecysudhirDOB: (69 yo F)Acc No.[id number]:06/22/2024 Patient: Salima FERRELL Provider: Gretchen Dowell :1955 A ge:69 Y S ex:Female Date:06/22/2024 Address:[address] [place], [place] [id number] Pcp:Elver Jaems Subjective: * Chief Complaints: * [facility] * Medical History: * Medications: T aking Vitamin B-12 1000 MCG Tablet 1 tab(s) orally once a day , Taking Multivitamin MULTIPLE VITAMINS CAPSULE 1 CAP(S) ORALLY ONCE A DAY , Notes to Pharmacist: *Please review and pick [facility]. If intended option is not shown, discontinue and re-order from Quick Search*, Taking NexIUM 40 MG Capsule Delayed Release TAKE 1 CAPSULE DAILY , Taking C-PAP SUPPLIES DX: SLEEP APNEA DIRECTED DIRECTED AT NIGHT , Notes to Pharmacist: *Please review for potential replacement for e-prescription and drug interaction check*, Taking PROAIR HFA 90MCG AEROSOL USE 2 INHALATIONS FOUR TIMES A DAY , Notes to Pharmacist: *Please review for potential replacement for e-prescription and drug interaction check*, Taking Fexofenadine HCl 180 MG Tablet 1 tab(s) orally once a day , Taking C-PAP MASK AND SUPPLIES DIRECTED DX: INOCENCIA , Notes to Pharmacist: *Please review for potential replacement for e-prescription and drug interaction check*, Taking Vitamin E 1 TAB(S) ORALLY ONCE A DAY , Notes to Pharmacist: *Please review and pick correct strength-formulation from [employer] options. If intended option is not shown, discontinue and re-order from Quick Search*, Taking Vitamin B6 1 TAB(S) ORALLY ONCE A DAY , Notes to Pharmacist: *Please review and pick correct strength-formulation from [employer] options. If intended option is not shown, discontinue and re-order from Quick Search*, Taking Urea 40 % Lotion 1 kristi applied topically 2 times a day , Taking C-PAP MASK AND SUPPLIES DIRECTED , Notes to Pharmacist: *Please review for potential replacement for e-prescription and drug interaction check*, Taking Fluticasone Propionate 50 MCG/ACT Suspension 1 spray(s) intranasally once a day , Taking Ciclopirox 8 % Solution 1 kristi applied topically once a day , Taking Meloxicam 7.5 MG Tablet 1 tab(s) orally once a day , Taking hydrOXYzine Pamoate 25 MG Capsule 1 cap(s) orally once a day , Taking Viibryd 40 MG Tablet 1 tab(s) orally once a day , Taking clonazePAM 0.5 MG Tablet 1/2 tab(s) orally 3 times a day , Taking NEBIVOLOL 5 MG TABLET 1 TAB ORALLY ONCE A DAY , Notes to Pharmacist: *Please review for potential replacement for e-prescription and drug interaction check*, Taking Pravastatin Sodium 40 MG Tablet 1 tab(s) orally once a day , Taking Jardiance 25 MG Tablet 1 tab orally once a day in the morning , Taking Myrbetriq 50 MG Tablet Extended Release 24 Hour TAKE 1 TABLET DAILY * Allergies: C lindamycin: profuse diarrhea. Objective: * Vitals: Assessment: * Assessment: 1. C OPD exacerbation - J44.1 Plan: * Treatment: * * Electronic signature of Prov ider Migration on 01/21/2025 at 12:47 PM EST Sign off status: Pending * Provider: Gretchen pardo Migration Date: 0 06/22/2024 Generated for Klaus khan/Helder/eTransmitting on: 03/23/2024 12:47 PM EST
--- OUTSIDE RECORDS SUMMARY | 2024-12-19 06:15 | XMS_ITS ---
Author Organization [facility] Address [address] [facility] [address] [place] [address] Care Team Providers Care Survey Party Chief Name Role Phone Elver James Primary Care Provider Allergies Allergen (clinical drug ingredient) Drug/Non Drug Allergy documented on EMR Reaction Allergy Type Onset Date Status clindamycin Clindamycin profuse diarrhea Drug Allergy Active Results Component Value Reference Range Notes THYROID PANEL WITH TSH (7444 ) Reviewed date:12/23/2024 10:51:46 AM Interpretation: Performing Lab:HARJINDER Pegg'd-[id number] [employer], [facility] [id number] Zack Lawrence Notes/Report: NON-FASTING; NON-FASTING; NON-FASTING; NON-FASTING; NON-FAST FASTING:NO FASTING: NO T3 UPTAKE 28 22-35 % T4 (THYROXINE), TOTAL 7.9 5.1-11.9 mcg/dL FREE T4 INDEX (T7) 2.2 1.4-3.8 TSH 2.02 0.40-4.50 mIU/L LIPID PANEL, STANDARD (7940) Reviewed date:12/23/2024 10:51:46 AM Interpretation: Performing Lab:HARJINDER R-[id number] [employer] [employer], [facility] [id number] Zack Lawrence Notes/Report: NON-FASTING; NON-FASTING; NON-FASTING; NON-FASTING; NON-FAST FASTING:NO FASTING: NO CHOLESTEROL, TOTAL 151 <200 mg/dL HDL CHOLESTEROL 42 > OR = 50 mg/dL TRIGLYCERIDES 183 <150 mg/dL LDL-CHOLESTEROL 81 Reference range: <100 Desirable range <100 mg/dL for primary prevention; <70 mg/dL for patients with CHD or diabetic patients with > or = 2 CHD risk factors. LDL-C is now calculated using the Erica calculation, which is a validated novel method providing better accuracy than the Friedewald equation in the estimation of LDL-C. Raul SS et al. TUAN. 2013;310(19): 0973-1885 (http://education.Wishberg.Qudini/faq/ASB040) CHOL/HDLC RATIO 3.6 <5.0 (calc) NON HDL CHOLESTEROL 109 <130 mg/dL (calc) For patients with diabetes plus 1 major ASCVD risk factor, treating to a non-HDL-C goal of <100 mg/dL (LDL-C of <70 mg/dL) is considered a therapeutic option. COMPREHENSIVE METABOLIC ELMER Hernandez (78042) Reviewed date:12/23/2024 10:51:46 AM Interpretation: Performing Lab:HARJINDER, [facility], Redwood [id number] Zack Lawrence Notes/Report: NON-FASTING; NON-FASTING; NON-FASTING; NON-FASTING; NON-FAST FASTING:NO FASTING: NO GLUCOSE 104 65-139 mg/dL Non-fasting reference interval UREA NITROGEN (BUN) 17 7-25 mg/dL CREATININE 0.68 0.60-1.00 mg/dL EGFR 93 > OR = 60 mL/min/1.73m2 BUN/CREATININE RATIO SEE NOTE: 6-22 (calc) Not Reported: BUN and Creatinine are within reference range. SODIUM 142 135-146 mmol/L POTASSIUM 4.1 3.5-5.3 mmol/L CHLORIDE 105 98-110 mmol/L CARBON DIOXIDE 28 20-32 mmol/L CALCIUM 9.4 8.6-10.4 mg/dL PROTEIN, TOTAL 7.1 6.1-8.1 g/dL ALBUMIN 4.4 3.6-5.1 g/dL GLOBULIN 2.7 1.9-3.7 g/dL (calc) ALBUMIN/GLOBULIN RATIO 1.6 1.0-2.5 (calc) BILIRUBIN, TOTAL 0.4 0.2-1.2 mg/dL ALKALINE PHOSPHATASE 72 37-153 U/L AST 27 10-35 U/L ALT 22 6-29 U/L CBC (INCLUDES DIFF/PLT) (639 9) Reviewed date:12/23/2024 10:51:47 AM Interpretation: Performing Lab:HARJINDER Pegg'd-[facility] [id number] [employer], Redwood [id number] Zack Lawrence Notes/Report: NON-FASTING; NON-FASTING; NON-FASTING; NON-FASTING; NON-FAST FASTING:NO FASTING: NO WHITE BLOOD CELL COUNT 5.4 3.8-10.8 Thousand/ uL RED BLOOD CELL COUNT 5.07 3.80-5.10 Million/uL HEMOGLOBIN 15.1 11.7-15.5 g/dL HEMATOCRIT 47.1 35.0-45.0 % MCV 92.9 80.0-100.0 fL MCH 29.8 27.0-33.0 pg MCHC 32.1 32.0-36.0 g/dL For adults, a slight decrease in the calculated MCHC value (in the range of 30 to 32 g/dL) is most likely not clinically significant; however, it should be interpreted with caution in correlation with other red cell parameters and the patient's clinical condition. RDW 13.4 11.0-15.0 % PLATELET COUNT 181 140-400 Thousand/uL MPV 9.2 7.5-12.5 fL ABSOLUTE NEUTROPHILS 3040 4314-3235 cells/uL ABSOLUTE LYMPHOCYTES 0741 759-4212 cells/uL ABSOLUTE MONOCYTES 427 200-950 cells/uL ABSOLUTE EOSINOPHILS 405 15-500 cells/uL ABSOLUTE BASOPHILS 22 0-200 cells/uL NEUTROPHILS 56.3 LYMPHOCYTES 27.9 MONOCYTES 7.9 EOSINOPHILS 7.5 BASOPHILS 0.4 HEMOGLOBIN A1c (496) Reviewed date:12/23/2024 10:51:47 AM Interpretation: Performing Lab:HARJINDER Pegg'd-[facility] [id number] [facility], Redwood [id number] Zack Lawrence Notes/Report: NON-FASTING; NON-FASTING; NON-FASTING; NON-FASTING; NON-FAST FASTING:NO FASTING: NO HEMOGLOBIN A1c 5.9 <5.7 % For someone without known diabetes, a hemoglobin A1c value between 5.7% and 6.4% is consistent with prediabetes and should be confirmed with a follow-up test. For someone with known diabetes, a value <7% indicates that their diabetes is well controlled. A1c targets should be individualized based on duration of diabetes, age, comorbid conditions, and other considerations. This assay result is consistent with an increased risk of diabetes. Currently, no consensus exists regarding use of hemoglobin A1c for diagnosis of diabetes for children. REASON FOR VISIT wellness,med ck, fever , sinus pressure , drainage , fatigue Medications Medication SIG (Take, Route, Frequency, Duration) Notes Start Date End Date Status hydrOXYzine Pamoate 25 MG 1 cap(s) orally once a day; Duration: 90 days Active Jardiance 25 MG 1 tab orally once a day in the morning; Duration: 90 days Active Meloxicam 7.5 mg TAKE 1 TABLET DAILY Active Viibryd 40 MG 1 tab(s) orally once a day; Duration: 90 days Active clonazePAM 0.5 MG 1/2 tab(s) orally 3 times a day; Duration: 30 days 07/23/2024 Active Fluticasone Propionate 50 MCG/ACT 1 spray(s) intranasally once a day; Duration: 90 days Active NEBIVOLOL 5 MG 1 TAB ORALLY ONCE A DAY; Duration: 90 DAYS *Please review for potential replacement for e-prescription and drug interaction check* Active Ciclopirox 8 % 1 kristi applied topically once a day; Duration: 90 days 01/09/2024 Active Myrbetriq 50 MG TAKE 1 TABLET DAILY Active Pravastatin Sodium 40 MG 1 tab(s) orally once a day; Duration: 90 days Active Vitamin B6 1 TAB(S) ORALLY ONCE A DAY *Please review and pick correct strength-formulati on from OneBuck[employer]umean options. If intended option is not shown, discontinue and re-order from Quick Search* Active Vitamin E 1 TAB(S) ORALLY ONCE A DAY *Please review and pick correct strength-formulati on from [employer]an options. If intended option is not shown, discontinue and re-order from Quick Search* Active C-PAP MASK AND SUPPLIES DIRECTED; Duration: 30 DAYS *Please review for potential replacement for e-prescription and drug interaction check* 04/16/2021 Active Urea 40 % 1 kristi applied topically 2 times a day; Duration: 30 day(s) Active C-PAP MASK AND SUPPLIES DIRECTED DX: INOCENCIA; Duration: 30 DAYS *Please review for potential replacement for e-prescription and drug interaction check* 01/08/2020 Active NexIUM 40 MG TAKE 1 CAPSULE DAILY Active PROAIR HFA 90MCG USE 2 INHALATIONS FOUR TIMES A DAY; Duration: 90 DAYS *Please review for potential replacement for e-prescription and drug interaction check* Active Amoxicillin-Pot Clavulanate 875-125 MG 1 tablet Orally every 12 hrs; Duration: 7 days 12/19/2024 Active C-PAP SUPPLIES DIRECTED DIRECTED AT NIGHT *Please review for potential replacement for e-prescription and drug interaction check* 08/08/2017 Active Fexofenadine HCl 180 MG 1 tab(s) orally once a day Active Azelastine-Fluticaso ne 137-50 MCG/ACT 1 spray in each nostril Nasally Twice a day Active Multivitamin MULTIPLE VITAMINS 1 CAP(S) ORALLY ONCE A DAY *Please review and pick correct strength-formulati on from [employer] options. If intended option is not shown, discontinue and re-order from Quick Search* Active Vitamin B-12 1000 MCG 1 tab(s) orally once a day Active Vital Signs Temperature 98 degrees Fahrenheit 12/19/2024 Blood pressure systolic 125 mm Hg 12/20/19 25 Blood pressure diastolic 80 mm Hg 025 Heart Rate 82 /min 12/19/2024 Height 5 ft 6 in in 12/19/2024 Weight 191 lbs 12/19/2024 BMI 30.82 kg/m2 12/19/2024 Encounters Encounter Location Date Provider Diagnosis [address] [address] 12/19/2024 Elver James Type 2 diabetes mellitus with other specified complication E11.69 ; Diabetic peripheral neuropathy associated with type 2 diabetes mellitus E11.42 ; Recurrent major depressive disorder, in partial remission F33.41 ; Primary hypertension I10 ; Other hyperlipidemia E78.49 ; Acute recurrent maxillary sinusitis J01.01 ; Personal history of nicotine dependence Z87.891 and Routine medical exam Z00.00 Assessments Encounter Date Diagnosis (ICD Code) Assessment Notes Treatment Notes Treatment Clinical Notes Section Notes 12/19/2024 Type 2 diabetes mellitus with other specified complication (ICD-10 - E11.69) I will order labs and review them. Continue current medication regime and will adjust if necessary 12/19/2024 Diabetic peripheral neuropathy associated with type 2 diabetes mellitus (ICD-10 - E11.42) Conitnue medications and will review lab work for diabetes 12/19/2024 Recurrent major depressive disorder, in partial remission (ICD-10 - F33.41) Overall doing well on SNRI, very rare benzo use. No changes in plans 12/19/2024 Primary hypertension (ICD-10 - I10) Blood pressure normal. No changes 12/19/2024 Other hyperlipidemia (ICD-10 - E78.49) Check lipid profile. 12/19/2024 Acute recurrent maxillary sinusitis (ICD-10 - J01.01) Pt is showing symptoms of sinusitis, this plus the smoking history makes me concerned so I will prescribe an antibiotic of Augmentin for a wide coverage of gram positive/negative/a nd anaerobe coverage. Due to the smoking history, a beta lactam is necessary due to co-morbidities. 12/19/2024 Personal history of nicotine dependence (ICD-10 - Z87.891) Had low-dose CT scan and June. Set moping cessation discussed for greater than 5 minutes, patient was once again precontemplative 12/19/2024 Routine medical exam (ICD-10 - Z00.00) Discuss smoking cessation. Up-to-date with colonoscopy, up-to-date with mammograms, DEXA and low-dose CT. Labs ordered as noted. Depression screening not done because of active diagnosis. HRA reviewed, 3/3 word recall. is healthcare surrogate Vaccines up to date. Will come back for flu shot in a couple weeks when she feels better Plan Of Treatment Medication Medication Name Sig Start Date Stop Date Notes Amoxicillin-Pot Clavulanate 875-125 MG 1 tablet Orally every 12 hrs; Duration: 7 days 12/19/2024 Treatment Notes Assessment Notes Type 2 diabetes mellitus wit h other specified complication I will order labs and review them. Katie nue current medication regime and will adjust if necessary Diabetic peripheral neuropat hy associated with type 2 diabetes mellitus Conitnue medications and will review lab work for diabetes Recurrent major depressive d isorder, in partial remission Overall doing well on SNRI, very rare be nzo use. No changes in plans Primary hypertension Blood pressure norm al. No changes Other hyperlipidemia Check lipid profile . Acute recurrent maxillary sinusitis Pt i s showing symptoms of sinusitis, this plus the smoking history makes me concerned so I will prescribe an antibiotic of Augmentin for a wide coverage of gram positive/negative/and anaerobe coverage. Due to the smoking history, a beta lactam is necessary due to co-morbidities. Personal history of nicotine dependence Had low-dose CT scan and June. Set moping cessation discussed for greater than 5 minutes, patient was once again precontemplative Routine medical exam Discuss smoking cessation. Up-to-date with colonoscopy, up-to-date with mammograms, DEXA and low-dose CT. Labs ordered as noted. Depression screening not done because of active diagnosis. HRA reviewed, 3/3 word recall. is healthcare surrogate Vaccines up to date. Will come back for flu shot in a couple weeks when she feels better Next Appt Details Follow Up: 2 Months, Reason: Provider Name:Elver James, 03/04/2025 11:30:00 AM, [address] [place] [address], [id number], Progress Notes * CHRISNiecysudhirDOB: 4 (69 yo F)Acc No.[id number]:12/19/2024 Progress notes Patient: Salima FERRELL Provider: Melina James MD :1955 A ge:69 Y S ex:Female Date:12/19/2024 Address:[address] [place], [place] [id number] Subjective: * Chief Complaints: * 1 . Wellness,med ck. 2. Fever , sinus pressure , drainage , fatigue. * HPI: g en: Patient here for multiple reasons: 1. Patient here for wellness check. States she is not feeling great right now, continues to smoke cigarettes, no alchohol use. Patient is compliant with medications. 2. Patient states she has had a cough, fever, and yellow sputum since yesterday. Says fever was 100.5 yesterday. Denies sore throat but admits to sinus pressure. * Medical History: A llergies, Hypertension, colonoscopy June 2013 with tubular adenoma - repeated 01/06 with isolated diminutive rectosigmoid polyp, Hypokalemia, Primary osteoarthritis knees bilateral, Tobacco abuse, Pneumonia - 06/2016, Normal DEXA 04/08, Normal LDCT 04/08 - repeat one year - repeated in 04/09 and again normal. Repeated 05/2021 and stable - also stable in 06/09, Normal mammogram 08/07 and 09/2021 and 11/09 and 06/11, Murmur with echo 12/11 - trace/mild aortic stenosis o/w normal. * Surgical History: r ight knee replacement , cardiac cath 2014, left knee-meniscus repair 2015, left knee total replacement 2022, cataract removal . * Hospitalization/Major Diagno stic Procedure: Melina Alvarez following LT Total Knee Replacement 2022. * Family History: F ather: , throat ca, diagnosed with Cancer, Stroke. M other: , breast ca, diagnosed with Hypertension, Heart Disease, Cancer. P aternal Grand Father: . P aternal Grand Mother: . M aternal Grand Father: . M aternal Grand Mother: , diagnosed with Diabetes. S cesilia: alive. Trena parr: alive. 2 brother(s) . 2 son(s) - healthy. . * Social History: S moking A re you a:: current smoker , How often do you smoke cigarettes?: every day, How many cigarettes a day do you smoke?: 6-10, How soon after you wake up do you smoke your first cigarette?: after 60 min. R ecreational drug use: no. Exercise: no. Home smoke detector use: yes. Caffeine: 4 cups coffee dailytea daily. Living Will: No. Alcohol: no. Travel outside [place]: no. 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 * Medications: T aking Azelastine-Fluticasone 137-50 MCG/ACT Suspension 1 spray in each nostril Nasally Twice a day , Taking Vitamin B-12 1000 MCG Tablet 1 tab(s) orally once a day , Taking Multivitamin MULTIPLE VITAMINS CAPSULE 1 CAP(S) ORALLY ONCE A DAY , Notes to Pharmacist: *Please review and pick correct strength-formulation from Ledzworldspan options. If intended option is not shown, [...] *Please review and pick correct strength-formulation from Lodo Software options. If intended option is not shown, discontinue and re-order from Quick Search*, Taking Vitamin B6 1 TAB(S) ORALLY ONCE A DAY , Notes to Pharmacist: *Please review and pick correct strength-formulation from Ledzworldspan options. If intended option is not shown, [...] applied topically once a day , Taking NEBIVOLOL 5 MG TABLET 1 TAB ORALLY ONCE A DAY , Notes to Pharmacist: *Please review for potential replacement for e-prescription and drug interaction check*, Taking Pravastatin Sodium 40 MG Tablet 1 tab(s) orally once a day , Taking Myrbetriq 50 MG Tablet Extended Release 24 Hour TAKE 1 TABLET DAILY , Taking clonazePAM 0.5 MG Tablet 1/2 tab(s) orally 3 times a day , Taking Viibryd 40 MG Tablet 1 tab(s) orally once a day , Taking Jardiance 25 MG Tablet 1 tab orally once a day in the morning , Taking hydrOXYzine Pamoate 25 MG Capsule 1 cap(s) orally once a day , Taking Meloxicam 7.5 mg Tablet TAKE 1 TABLET DAILY , Medication List reviewed and reconciled with the patient * Allergies: C lindamycin: profuse diarrhea. Objective: * Vitals: N urse: dw, Pain: 4, Temp: 98, RR: 20, HR: 82, BP: 125/80, Ht: 5 ft 6 in, Wt: 191, BMI:30.82. * Examination: G eneral Examination: General P leasant and Cooperative, NAD on RA,. Heart: R egular Rate and Rhythm, no rubs or gallops. Positive for 4/6 systolic murmur consistent with aortic stenosis. HEENT: p harynx erythematous and tonsils normal, TM's normal. TTP of maxillary sinuses. Lungs: L CTAB, No wheezes, crackles or rhonchi, Good air movement,. Abdomen: S oft, NTND, BSNA, No organomegaly or peritoneal signs.. Assessment: * Assessment: 1. T ype 2 diabetes mellitus with other specified complication - E11.69 (Primary) ?2. D iabetic peripheral neuropathy associated with type 2 diabetes mellitus - E11.42 & #160; 3 . R ecurrent major depressive disorder, in partial remission - F33.41 ?4. P rimary hypertension - I10 5 . O ther hyperlipidemia - E78.49 ? 6 . A cute recurrent maxillary sinusitis - J01.01 7 . P ersonal history of nicotine dependence - Z87.891 8 . R outine medical exam - Z00.00 ? Plan: * Treatment: Value Reference Range T 3 UPTAKE 28 22-35 - % * T 4 (THYROXINE), TOTAL 7.9 5.1-11.9 - mcg/dL * F REE T4 INDEX (T7) 2.2 1.4-3.8 - * T SH 2.02 0.40-4.50 - mIU/L * Dominic Castillo R 12/23/2024 1 0:51:21 AM EDT > pt notifiedThis lab was reviewed by Dominic Castillo on 12/23/2024 at 10:51 AM EDT ?LAB: LIPID PANEL, STANDARD (7600)* Value Reference Range T RIGLYCERIDES 183 H <150 - mg/dL * C HOLESTEROL, TOTAL 151 <200 - mg/dL * H DL CHOLESTEROL 42 L > OR = 50 - mg/dL * L DL-CHOLESTEROL 81 - mg/dL (calc) * C HOL/HDLC RATIO 3.6 <5.0 - (calc) * N ON HDL CHOLESTEROL 109 <130 - mg/dL (calc) * Dominic Castillo R 12/23/2024 1 0:51:21 AM EDT > pt notifiedThis lab was reviewed by Dominic Castillo on 12/23/2024 at 10:51 AM EDT ?LAB: COMPREHENSIVE METABOLIC PANEL (22053)* Value Reference Range G LUCOSE 104 65-139 - mg/dL * U JACK NITROGEN (BUN) 17 7-25 - mg/dL * C REATININE 0.68 0.60-1.00 - mg/dL * B UN/CREATININE RATIO SEE NOTE: 6-22 - (calc) * S ODIUM 142 135-146 - mmol/L * P OTASSIUM 4.1 3.5-5.3 - mmol/L * C HLORIDE 105 98-110 - mmol/L * C ARBON DIOXIDE 28 20-32 - mmol/L * C ALCIUM 9.4 8.6-10.4 - mg/dL * P ROTEIN, TOTAL 7.1 6.1-8.1 - g/dL * A LBUMIN 4.4 3.6-5.1 - g/dL * G LOBULIN 2.7 1.9-3.7 - g/dL (calc ) * A LBUMIN/GLOBULIN RATIO 1.6 1.0-2.5 - (calc) * B ILIRUBIN, TOTAL 0.4 0.2-1.2 - mg/dL * A LKALINE PHOSPHATASE 72 37-153 - U/L * A ST 27 10-35 - U/L * A LT 22 6-29 - U/L * E GFR 93 > OR = 60 - mL/min/1 .73m2 * Dominic Castillo 12/23/2024 1 0:51:21 AM EDT > pt notifiedThis lab was reviewed by Dominic Castillo on 12/23/2024 at 10:51 AM EDT ?LAB: CBC (INCLUDES DIFF/PLT) (7213)* Value Reference Range W VICK BLOOD CELL COUNT 5.4 3.8-10.8 - Thousan d/uL * R ED BLOOD CELL COUNT 5.07 3.80-5.10 - Million/ uL * H EMOGLOBIN 15.1 11.7-15.5 - g/dL * H EMATOCRIT 47.1 H 35.0-45.0 - % * M CV 92.9 80.0-100.0 - fL * M CH 29.8 27.0-33.0 - pg * M CHC 32.1 32.0-36.0 - g/dL * R DW 13.4 11.0-15.0 - % * P LATELET COUNT 181 140-400 - Thousand/u L * N EUTROPHILS 56.3 - % * A BSOLUTE NEUTROPHILS 3040 6013-5814 - cells/uL * L YMPHOCYTES 27.9 - % * A BSOLUTE LYMPHOCYTES 4123 086-6138 - cells/uL * M ONOCYTES 7.9 - % * A BSOLUTE MONOCYTES 427 200-950 - cells/uL * E OSINOPHILS 7.5 - % * A BSOLUTE EOSINOPHILS 405 15-500 - cells/uL * B ASOPHILS 0.4 - % * A BSOLUTE BASOPHILS 22 0-200 - cells/uL * M PV 9.2 7.5-12.5 - fL * Dominic Castillo 12/23/2024 1 0:51:21 AM EDT > pt notifiedThis lab was reviewed by Dominic Castillo on 12/23/2024 at 10:51 AM EDT ?LAB: HEMOGLOBIN A1c (496)* Value Reference Range H EMOGLOBIN A1c 5.9 H <5.7 - % * Dominic Castillo 12/23/2024 1 0:51:21 AM EDT > pt notifiedThis lab was reviewed by Dominic Castillo on 12/23/2024 at 10:51 AM EDT Notes: I will order labs and review them. Continue current medication regime and will adjust if necessary??2.?Diabetic peripheral neuropathy associated with type 2 diabetes mellitus?LAB: THYROID PANEL WITH TSH (7444)* Value Reference Range T 3 UPTAKE 28 22-35 - % * T 4 (THYROXINE), TOTAL 7.9 5.1-11.9 - mcg/dL * F REE T4 INDEX (T7) 2.2 1.4-3.8 - * T SH 2.02 0.40-4.50 - mIU/L * Dominic Castillo 12/23/2024 1 0:51:21 AM EDT > pt notifiedThis lab was reviewed by Dominic Castillo on 12/23/2024 at 10:51 AM EDT ?LAB: LIPID PANEL, STANDARD (4290)* Value Reference Range T RIGLYCERIDES 183 H <150 - mg/dL * C HOLESTEROL, TOTAL 151 <200 - mg/dL * H DL CHOLESTEROL 42 L > OR = 50 - mg/dL * L DL-CHOLESTEROL 81 - mg/dL (calc) * C HOL/HDLC RATIO 3.6 <5.0 - (calc) * N ON HDL CHOLESTEROL 109 <130 - mg/dL (calc) * Dominic Castillo R 12/23/2024 1 0:51:21 AM EDT > pt notifiedThis lab was reviewed by Dominic Castillo on 12/23/2024 at 10:51 AM EDT ?LAB: COMPREHENSIVE METABOLIC PANEL (61396)* Value Reference Range G LUCOSE 104 65-139 - mg/dL * U JACK NITROGEN (BUN) 17 7-25 - mg/dL * C REATININE 0.68 0.60-1.00 - mg/dL * B UN/CREATININE RATIO SEE NOTE: 6-22 - (calc) * S ODIUM 142 135-146 - mmol/L * P OTASSIUM 4.1 3.5-5.3 - mmol/L * C HLORIDE 105 98-110 - mmol/L * C ARBON DIOXIDE 28 20-32 - mmol/L * C ALCIUM 9.4 8.6-10.4 - mg/dL * P ROTEIN, TOTAL 7.1 6.1-8.1 - g/dL * A LBUMIN 4.4 3.6-5.1 - g/dL * G LOBULIN 2.7 1.9-3.7 - g/dL (calc ) * A LBUMIN/GLOBULIN RATIO 1.6 1.0-2.5 - (calc) * B ILIRUBIN, TOTAL 0.4 0.2-1.2 - mg/dL * A LKALINE PHOSPHATASE 72 37-153 - U/L * A ST 27 10-35 - U/L * A LT 22 6-29 - U/L * E GFR 93 > OR = 60 - mL/min/1 .73m2 * Dominic Castillo 12/23/2024 1 0:51:21 AM EDT > pt notifiedThis lab was reviewed by Dominic Castillo on 12/23/2024 at 10:51 AM EDT ?LAB: CBC (INCLUDES DIFF/PLT) (8099)* Value Reference Range W VICK BLOOD CELL COUNT 5.4 3.8-10.8 - Thousan d/uL * R ED BLOOD CELL COUNT 5.07 3.80-5.10 - Million/ uL * H EMOGLOBIN 15.1 11.7-15.5 - g/dL * H EMATOCRIT 47.1 H 35.0-45.0 - % * M CV 92.9 80.0-100.0 - fL * M CH 29.8 27.0-33.0 - pg * M CHC 32.1 32.0-36.0 - g/dL * R DW 13.4 11.0-15.0 - % * P LATELET COUNT 181 140-400 - Thousand/u L * N EUTROPHILS 56.3 - % * A BSOLUTE NEUTROPHILS 3040 5461-2349 - cells/uL * L YMPHOCYTES 27.9 - % * A BSOLUTE LYMPHOCYTES 8292 250-5156 - cells/uL * M ONOCYTES 7.9 - % * A BSOLUTE MONOCYTES 427 200-950 - cells/uL * E OSINOPHILS 7.5 - % * A BSOLUTE EOSINOPHILS 405 15-500 - cells/uL * B ASOPHILS 0.4 - % * A BSOLUTE BASOPHILS 22 0-200 - cells/uL * M PV 9.2 7.5-12.5 - fL * Dmoinic Castillo R 12/23/2024 1 0:51:21 AM EDT > pt notifiedThis lab was reviewed by Dominic Castillo on 12/23/2024 at 10:51 AM EDT ?LAB: HEMOGLOBIN A1c (496)* Value Reference Range H EMOGLOBIN A1c 5.9 H <5.7 - % * Dominic Castillo R 12/23/2024 1 0:51:21 AM EDT > pt notifiedThis lab was reviewed by Dominic Castillo on 12/23/2024 at 10:51 AM EDT Notes: Conitnue medications and will review lab work for diabetes??3.?Recurrent major depressive disorder, in partial remission? Notes: Overall doing well on SNRI, very rare benzo use. No changes in plans?? 4.?Primary hypertension? Notes: Blood pressure normal. No changes??5.?Other hyperlipidemia?LAB: THYROID PANEL WITH TSH (7444)* Value Reference Range T 3 UPTAKE 28 22-35 - % * T 4 (THYROXINE), TOTAL 7.9 5.1-11.9 - mcg/dL * F REE T4 INDEX (T7) 2.2 1.4-3.8 - * T SH 2.02 0.40-4.50 - mIU/L * Dominic Castillo 12/23/2024 1 0:51:21 AM EDT > pt notifiedThis lab was reviewed by Dominic Castillo on 12/23/2024 at 10:51 AM EDT ?LAB: LIPID PANEL, STANDARD (7600)* Value Reference Range T RIGLYCERIDES 183 H <150 - mg/dL * C HOLESTEROL, TOTAL 151 <200 - mg/dL * H DL CHOLESTEROL 42 L > OR = 50 - mg/dL * L DL-CHOLESTEROL 81 - mg/dL (calc) * C HOL/HDLC RATIO 3.6 <5.0 - (calc) * N ON HDL CHOLESTEROL 109 <130 - mg/dL (calc) * Anna Dominic R 12/23/2024 1 0:51:21 AM EDT > pt notifiedThis lab was reviewed by Dominic Castillo on 12/23/2024 at 10:51 AM EDT ?LAB: COMPREHENSIVE METABOLIC PANEL (11773)* Value Reference Range G LUCOSE 104 65-139 - mg/dL * U JACK NITROGEN (BUN) 17 7-25 - mg/dL * C REATININE 0.68 0.60-1.00 - mg/dL * B UN/CREATININE RATIO SEE NOTE: 6-22 - (calc) * S ODIUM 142 135-146 - mmol/L * P OTASSIUM 4.1 3.5-5.3 - mmol/L * C HLORIDE 105 98-110 - mmol/L * C ARBON DIOXIDE 28 20-32 - mmol/L * C ALCIUM 9.4 8.6-10.4 - mg/dL * P ROTEIN, TOTAL 7.1 6.1-8.1 - g/dL * A LBUMIN 4.4 3.6-5.1 - g/dL * G LOBULIN 2.7 1.9-3.7 - g/dL (calc ) * A LBUMIN/GLOBULIN RATIO 1.6 1.0-2.5 - (calc) * B ILIRUBIN, TOTAL 0.4 0.2-1.2 - mg/dL * A LKALINE PHOSPHATASE 72 37-153 - U/L * A ST 27 10-35 - U/L * A LT 22 6-29 - U/L * E GFR 93 > OR = 60 - mL/min/1 .73m2 * Dominic Castillo 12/23/2024 1 0:51:21 AM EDT > pt notifiedThis lab was reviewed by Dominic Castillo on 12/23/2024 at 10:51 AM EDT ?LAB: CBC (INCLUDES DIFF/PLT) (4082)* Value Reference Range W VICK BLOOD CELL COUNT 5.4 3.8-10.8 - [place] d/uL * R ED BLOOD CELL COUNT 5.07 3.80-5.10 - Million/ uL * H EMOGLOBIN 15.1 11.7-15.5 - g/dL * H EMATOCRIT 47.1 H 35.0-45.0 - % * M CV 92.9 80.0-100.0 - fL * M CH 29.8 27.0-33.0 - pg * M CHC 32.1 32.0-36.0 - g/dL * R DW 13.4 11.0-15.0 - % * P LATELET COUNT 181 140-400 - Thousand/u L * N EUTROPHILS 56.3 - % * A BSOLUTE NEUTROPHILS 3040 3217-6282 - cells/uL * L YMPHOCYTES 27.9 - % * A BSOLUTE LYMPHOCYTES 7865 145-2273 - cells/uL * M ONOCYTES 7.9 - % * A BSOLUTE MONOCYTES 427 200-950 - cells/uL * E OSINOPHILS 7.5 - % * A BSOLUTE EOSINOPHILS 405 15-500 - cells/uL * B ASOPHILS 0.4 - % * A BSOLUTE BASOPHILS 22 0-200 - cells/uL * M PV 9.2 7.5-12.5 - fL * Dominic Castillo 12/23/2024 1 0:51:21 AM EDT > pt notifiedThis lab was reviewed by Dominic Castillo on 12/23/2024 at 10:51 AM EDT ?LAB: HEMOGLOBIN A1c (496)* Value Reference Range H EMOGLOBIN A1c 5.9 H <5.7 - % * Dominic Castillo 12/23/2024 1 0:51:21 AM EDT > pt notifiedThis lab was reviewed by Dominic Castillo on 12/23/2024 at 10:51 AM EDT Notes: Check lipid profile.??6.?Acute recurrent maxillary sinusitis? Start Amoxicillin-Pot Clavulanate Tablet, 875-125 MG, 1 tablet, Orally, every 12 hrs, 7 days, 14 Tablet.?? Notes: Pt is showing symptoms of sinusitis, this plus the smoking history makes me concerned so I will prescribe an antibiotic of Augmentin for a wide coverage of gram positive/negative/and anaerobe coverage. Due to the smoking history, a beta lactam is necessary due to co-morbidities.??7.?Personal history of nicotine dependence? Notes: Had low-dose CT scan and June. Set moping cessation discussed for greater than 5 minutes, patient was once again precontemplative ?8.?Routine medical exam? Notes: Discuss smoking cessation. Up-to-date with colonoscopy, up-to-date with mammograms, DEXA andlow-dose CT. Labs ordered as noted. Depression screening not done because of active diagnosis. HRA reviewed, 3/3 word recall. is healthcare surrogate Vaccines up to date. Will come back for flu shot in a couple weeks when she feels better?? * Procedure Codes: 9 9406 BEHAV CHNG SMOKING 3-10 MIN, G0439 ANNUAL WELLNESS VST; PPS SUBSQT VST, 1170F FUNCTIONAL STATUS ASSESSMENT, G2211 Complex e/m visit add on, M1371 Mst rec gsa<7, G8399 PT W/DXA DOCUMENT OR ORDER, 1123F ADVANCED DIRECTIVE - HAS A LIVING WILL, G9899 Screening diagnostic,film,digital results documented and reviewed, 3017F COLORECTAL CA SCREEN DOC REV, G8420 BMI documented as normal, no follow up required., G8431 POSITIVE SCREENING FOR DEPRESSION W/DOCUMENTED F/U, G9902 Pt scrn tbco and id as user, G9906 Patient identified as tobacco user received tobacco cessation intervention., G8752 Most recent systolic blood pressure < 140mmhg, G8754 Most recent diastolic blood pressure < 90mmhg, G9744 PATIENT NOT ELIG D/T ACTIVE DX HTN * Follow Up: 2 Months * * Sign off status: Completed true * Provider: Melina James MD Date: Generated for Marthai bill/Helder/eTransmitting on: 03/23/2024 12:47 PM EST History and Physical Notes * HPI (History of Present Illness) Category Sub-Category Detail Notes Category Not es gen Patient here for multiple reasons: 1. Patient here for wellness check. States she is not feeling great right now, continues to smoke cigarettes, no alchohol use. Patient is compliant with medications. 2. Patient states she has had a cough, fever, and yellow sputum since yesterday. Says fever was 100.5 yesterday. Denies sore throat but admits to sinus pressure Examination Category Sub-Category Detail Notes Category Not es General Examination HEENT: pharynx eryt hematous and tonsils normal, TM's normal. TTP of maxillary sinuses Heart: Regular Rate and Rhy thm, no rubs or gallops. Positive for 4/6 systolic murmur consistent with aortic stenosis Lungs: LCTAB, No wheezes, c rackles or rhonchi, Good air movement, Abdomen: Soft, NTND, BSNA, No organomegaly or peritoneal signs. General [place] and [place] t[place], NAD on RA,
--- OUTSIDE RECORDS SUMMARY | 2024-12-30 09:30 | XMS_ITS ---
Author Organization [facility] Address [address] [place] [address] Care Team Providers Care Public Relations Representative Name Role Phone Elver James Primary Care Provider [phone] REASON FOR VISIT flu shot Immunizations Vaccine Route Administration Date Status Comme nts Fluzone High Dose IM Intramuscular 12/30/2024 Administered Encounters Encounter Location Date Provider Diagnosis [facility] [address] [address] 12/30/2024 Elver James Immunization(s) administered Z23 Assessments Encounter Date Diagnosis (ICD Code) Assessment Notes Treatment Notes Treatment Clinical Notes Section Notes 12/30/2024 Immunization(s) administered (ICD-10 - Z23) Plan Of Treatment Next Appt Details Provider Name:Elver James, 03/04/2025 11:30:00 AM, [address], [address], Progress Notes * Salima PEREZDOB: (69 yo F)Acc No.[id number]:12/30/2024 Patient: Salima FERRELL Provider: Melina James MD :[id number] A ge:69 Y S ex:Female Date:12/30/2024 Address:[address] [place], [place] [id number] Subjective: * Chief Complaints: * 1 . Flu shot. * Medical History: Objective: * Vitals: Assessment: * Assessment: 1. I mmunization(s) administered - Z23 (Primary) Plan: * Treatment: * Immunizations: Fluzone High Dose : 0.7 mL (Dose No:1) (Route: Intramuscular) given by JESSICA Weinstein on Right Deltoid (Immunization(s) administered) * Procedure Codes: 9 0662 Influenza High Dose Vaccine >65 Years Old, Units: 1.40 , G0008 ADMINISTRATION-FLU VACCINE MEDICARE ONLY * * Sign off status: Completed true * Provider: Melina James MD Date: Generated for Klaus khan/Helder/Temi on: 03/23/2024 12:46 PM EST
--- OUTSIDE RECORDS SUMMARY | 2025-01-21 12:47 | XMS_ITS | Patient Health Record ---
Author Organization [facility] Address [address] [facility] [address] [place] [address] Care Team Providers Care Assistant [employer] Name Role Phone Elver James Primary Care Provider [phone] Migration, Provider Unavailable Unavailable Allergies Allergen (clinical drug ingredient) Drug/Non Drug Allergy documented on EMR Reaction Allergy Type Onset Date Status clindamycin Clindamycin profuse diarrhea Drug Allergy Active Results Component Value Reference Range Notes LIPID PANEL, STANDARD (7600) Reviewed date:05/09/2024 08:32:52 AM Interpretation: Performing Lab:HARJINDER, Javad Johnson-Narinder Coxe13[address] [facility] [[email or web address] Baltazar[address] Zack Lawrence Notes/Report: NON-FASTING; NON-FASTING; NON-FASTING FASTING:NO FASTING: NO CHOLESTEROL, TOTAL 163 <200 mg/dL HDL CHOLESTEROL 53 > OR = 50 mg/dL TRIGLYCERIDES 140 <150 mg/dL LDL-CHOLESTEROL 86 Reference range: <100 Desirable range <100 mg/dL for primary prevention; <70 mg/dL for patients with CHD or diabetic patients with > or = 2 CHD risk factors. LDL-C is now calculated using the Raul-Willa calculation, which is a validated novel method providing better accuracy than the Friedewald equation in the estimation of LDL-C. Raul SHAH et al. TUAN. 2013;310(19): 0207-5461 (http://education.MindFuse.com/faq/OKD803) CHOL/HDLC RATIO 3.1 <5.0 (calc) NON HDL CHOLESTEROL 110 <130 mg/dL (calc) For patients with diabetes plus 1 major ASCVD risk factor, treating to a non-HDL-C goal of <100 mg/dL (LDL-C of <70 mg/dL) is considered a therapeutic option. COMPREHENSIVE METABOLIC PANE L (28598) Reviewed date:05/09/2024 08:32:52 AM Interpretation: Performing Lab:HARJINDER [employer] [id number] Quitt.chteHealth[facility], [facility] HospitalYqmhPT[address] Zack Lawrence Notes/Report: NON-FASTING; NON-FASTING; NON-FASTING FASTING:NO FASTING: NO GLUCOSE 97 65-139 mg/dL Non-fasting reference interval UREA NITROGEN (BUN) 14 7-25 mg/dL CREATININE 0.74 0.60-1.00 mg/dL EGFR 87 > OR = 60 mL/min/1.73m2 BUN/CREATININE RATIO SEE NOTE: 6-22 (calc) Not Reported: BUN and Creatinine are within reference range. SODIUM 140 135-146 mmol/L POTASSIUM 4.2 3.5-5.3 mmol/L CHLORIDE 101 98-110 mmol/L CARBON DIOXIDE 32 20-32 mmol/L CALCIUM 9.7 8.6-10.4 mg/dL PROTEIN, TOTAL 7.2 6.1-8.1 g/dL ALBUMIN 4.4 3.6-5.1 g/dL GLOBULIN 2.8 1.9-3.7 g/dL (calc) ALBUMIN/GLOBULIN RATIO 1.6 1.0-2.5 (calc) BILIRUBIN, TOTAL 0.6 0.2-1.2 mg/dL ALKALINE PHOSPHATASE 82 37-153 U/L AST 24 10-35 U/L ALT 21 6-29 U/L HEMOGLOBIN A1c (496) Reviewed date:05/09/2024 08:32:52 AM Interpretation: Performing Lab:HARJINDER [employer] [id number] Quitt.chte[facility], [facility] CenterBrycBZ[address] Zack Lawrence Notes/Report: NON-FASTING; NON-FASTING; NON-FASTING FASTING:NO FASTING: NO HEMOGLOBIN A1c 5.9 <5.7 % of total Hgb For someone without known diabetes, a hemoglobin [...] A1c for diagnosis of diabetes for children. THYROID PANEL WITH TSH (7444 ) Reviewed date:12/23/2024 10:51:46 AM Interpretation: Performing Lab:HARJINDER, [employer] [place], EdevateOnkuQM[address] Zack Lawrence Notes/Report: NON-FASTING; NON-FASTING; NON-FASTING; NON-FASTING; NON-FAST FASTING:NO FASTING: NO T3 UPTAKE 28 22-35 % T4 (THYROXINE), TOTAL 7.9 5.1-11.9 mcg/dL FREE T4 INDEX (T7) 2.2 1.4-3.8 TSH 2.02 0.40-4.50 mIU/L LIPID PANEL, STANDARD (7600) Reviewed date:12/23/2024 10:51:46 AM Interpretation: Performing Lab:HARJINDER, [employer] Quitt.chtel [facility], EdevateOkzdAQ[address] Zack Lawrence Notes/Report: NON-FASTING; NON-FASTING; NON-FASTING; NON-FASTING; NON-FAST FASTING:NO FASTING: NO CHOLESTEROL, TOTAL 151 <200 mg/dL HDL CHOLESTEROL 42 > OR = 50 mg/dL TRIGLYCERIDES 183 <150 mg/dL LDL-CHOLESTEROL 81 Reference range: <100 Desirable range <100 mg/dL for primary prevention; <70 mg/dL for patients with CHD or diabetic patients with > or = 2 CHD risk factors. LDL-C is now calculated using the Raul-Crouch calculation, which is a validated novel method providing better accuracy than the Friedewald equation in the estimation of LDL-C. Raul SHAH et al. TUAN. 2013;310(19): 0724-5278 (http://education.MindFuse.com/faq/FOP025) CHOL/HDLC RATIO 3.6 <5.0 (calc) NON HDL CHOLESTEROL 109 <130 mg/dL (calc) For patients with diabetes plus 1 major ASCVD risk factor, treating to a non-HDL-C goal of <100 mg/dL (LDL-C of <70 mg/dL) is considered a therapeutic option. COMPREHENSIVE METABOLIC PANE L (24565) Reviewed date:12/23/2024 10:51:46 AM Interpretation: Performing Lab:HARJINDER [employer] [id number] [place], [facility] HospitalOhfkYA[address] Zack Lawrence Notes/Report: NON-FASTING; NON-FASTING; NON-FASTING; NON-FASTING; [...] Reviewed date:12/23/2024 10:51:47 AM Interpretation: Performing Lab:HARJINDER [employer] [id number] [employer] [facility], [facility] HospitalZhuwTH[address] Zack Lawrence Notes/Report: NON-FASTING; NON-FASTING; NON-FASTING; NON-FASTING; [...] MPV 9.2 7.5-12.5 fL ABSOLUTE NEUTROPHILS 3040 8013-1249 cells/uL ABSOLUTE LYMPHOCYTES 3543 730-5960 cells/uL ABSOLUTE MONOCYTES 427 200-950 cells/uL ABSOLUTE EOSINOPHILS 405 15-500 cells/uL ABSOLUTE BASOPHILS 22 0-200 cells/uL NEUTROPHILS 56.3 LYMPHOCYTES 27.9 MONOCYTES 7.9 EOSINOPHILS 7.5 BASOPHILS 0.4 HEMOGLOBIN A1c (496) Reviewed date:12/23/2024 10:51:47 AM Interpretation: Performing Lab:HARJINDER, [facility] [id number], [facility] HospitalApclDU[address] Zack Lawrence Notes/Report: NON-FASTING; NON-FASTING; NON-FASTING; NON-FASTING; [...] A1c for diagnosis of diabetes for children. Mammogram : Bilateral Reviewed date:06/05/2024 04:42:59 PM Interpretation: Performing Lab: Notes/Report: Medications Medication SIG (Take, Route, Frequency, Duration) Notes Start Date End Date Status Vitamin B6 1 TAB(S) ORALLY ONCE A DAY *Please review and pick correct strength-formulati on from THREAT STREAM options. If intended option is not shown, discontinue and re-order from Quick Search* Active hydrOXYzine Pamoate 25 MG 1 cap(s) orally once a day; Duration: 90 days Active Viibryd 40 MG 1 tab(s) orally once a day; Duration: 90 days Active Vitamin E 1 TAB(S) ORALLY ONCE A DAY *Please review and pick correct strength-formulati on from Just around Usan options. If intended option is not shown, discontinue and re-order from Quick Search* Active Jardiance 25 MG 1 tab orally once a day in the morning; Duration: 90 days Active Azelastine-Fluticaso ne 137-50 MCG/ACT 1 spray in each nostril Nasally Twice a day Active C-PAP MASK AND SUPPLIES DIRECTED; Duration: 30 DAYS *Please review for potential replacement for e-prescription and drug interaction check* 04/16/2021 Active Urea 40 % 1 kristi applied topically 2 times a day; Duration: 30 day(s) Active Meloxicam 7.5 mg TAKE 1 TABLET DAILY Active Multivitamin MULTIPLE VITAMINS 1 CAP(S) ORALLY ONCE A DAY *Please review and pick correct strength-formulati on from THREAT STREAM options. If intended option is not shown, discontinue and re-order from Quick Search* Active Vitamin B-12 1000 MCG 1 tab(s) orally once a day Active Fluticasone Propionate 50 MCG/ACT 1 spray(s) intranasally once a day; Duration: 90 days Active NexIUM 40 MG TAKE 1 CAPSULE DAILY Active NEBIVOLOL 5 MG 1 TAB ORALLY ONCE A DAY; Duration: 90 DAYS *Please review for potential replacement for e-prescription and drug interaction check* Active Ciclopirox 8 % 1 kristi applied topically once a day; Duration: 90 days 01/09/2024 Active PROAIR HFA 90MCG USE 2 INHALATIONS FOUR TIMES A DAY; Duration: 90 DAYS *Please review for potential replacement for e-prescription and drug interaction check* Active Myrbetriq 50 MG TAKE 1 TABLET DAILY Active Amoxicillin-Pot Clavulanate 875-125 MG 1 tablet Orally every 12 hrs; Duration: 7 days 12/19/2024 Active C-PAP SUPPLIES DIRECTED DIRECTED AT NIGHT *Please review for potential replacement for e-prescription and drug interaction check* 08/08/2017 Active Pravastatin Sodium 40 MG 1 tab(s) orally once a day; Duration: 90 days Active C-PAP MASK AND SUPPLIES DIRECTED DX: INOCENCIA; Duration: 30 DAYS *Please review for potential replacement for e-prescription and drug interaction check* 01/08/2020 Active Fexofenadine HCl 180 MG 1 tab(s) orally once a day Active clonazePAM 0.5 MG TAKE 1/2 TAB(S) ORALLY 3 TIMES A DAY 30 DAYS; Duration: 40 12/24/2024 Active Immunizations Vaccine Route Administration Date Status Comme nts Adacel (Tdap) IM Intramuscular 01/22/2016 Administered Fluvirin--Influenza vaccine 3+ year Unknown 01/10/2011 Administered Fluvirin--Influenza vaccine 3+ year IM Intramuscular 01/20/2012 Administered Fluzone High Dose IM Intramuscular 01/01/2019 Administered Fluzone High Dose IM Intramuscular 12/24/2019 Administered Fluzone High Dose IM Intramuscular 11/10/2020 Administered Fluzone High Dose IM Intramuscular 12/01/2022 Administered Fluzone High Dose IM Intramuscular 01/09/2024 Administered Fluzone High Dose IM Intramuscular 12/30/2024 Administered Influenza-Fluzone 3+years (NON-MEDICARE) IM Intramuscular 12/25/2014 Administered Influenza-Fluzone 3+years (NON-MEDICARE) IM Intramuscular 12/24/2015 Administered PCV-21 (Pneumococcal conjugate 20) IM Intramuscular 09/03/2024 Administered Pneumovax 23 IM Intramuscular 08/04/2016 Administered Prevnar PCV-13 (Pneumococcal conjugate 13) IM Intramuscular 02/26/2019 Administered SHINGRIX Unknown 10/11/2022 Administered SHINGRIX Unknown 02/01/2023 Administered Problems Problem Type SNOMED Code ICD Code Onset Dates Problem Status W/U Status Risk Notes Problem Type 2 diabetes mellitus with other specified complication (E11.69) Active confirmed Problem Type II diabetes mellitus without complication (748902606) Type 2 diabetes mellitus without complications (E11.9) Active confirmed Problem Vitamin D deficiency (78062439) Vitamin D deficiency, unspecified (E55.9) Active confirmed Problem Obesity (942576048) Obesity, unspecified (E66.9) Active confirmed Problem Generalized anxiety disorder (55795671) Generalized anxiety disorder (F41.1) Active confirmed Problem Anxiety disorder (582504541) Anxiety disorder, unspecified (F41.9) Active confirmed Problem Chronic rhinitis (29760734) Chronic rhinitis (J31.0) Active confirmed Problem Heart murmur (finding) (61678795) Cardiac murmur, unspecified (R01.1) Active confirmed Problem Malaise (894491006) Other malais e (R53.81) Active confirmed Problem Chronic obstructive pulmonary disease with acute lower respiratory infection (946936977) COPD (chronic obstructive pulmonary disease) with acute bronchitis (J44.0) Active confirmed Problem Essential hypertension (72076007) Hypertension, essential (I10) Active confirmed Problem Acute exacerbation of chronic obstructive airways disease (343106666) COPD exacerbation (J44.1) Active confirmed Problem Idiopathic peripheral neuropathy (28906098) Idiopathic peripheral neuropathy (G60.9) Active confirmed Problem Hyperlipidemia (80776302) Hyperlipidemia, unspecified (E78.5) Active confirmed Problem Pain in left foot (789315795578027) Left foot pain (M79.672) Active confirmed Problem Urge incontinence of urine (19117840) Urge incontinence of urine (N39.41) Active confirmed Problem Acute maxillary sinusitis (47320045) Acute maxillary sinusitis, recurrence not specified (J01.00) Active confirmed Problem Gastroesophageal reflux disease (549908022) Gastroesophageal reflux disease, esophagitis presence not specified (K21.9) Active confirmed Problem Dysthymia (86664665) Dysthymia (F34.1) Active confirmed Problem Strain of posterior muscle of left thigh (disorder) (90071176458235) Left hamstring muscle strain, initial encounter (S76.312A) Active confirmed Problem Rosacea (775756217) Rosacea (L71.9) Active conf irmed Problem Pulmonary nodule (363039156) Pulmonary nodule (R91.1) Active confirmed Problem Polyneuropathy due to type 2 diabetes mellitus (736699380) Diabetic peripheral neuropathy associated with type 2 diabetes mellitus (E11.42) Active confirmed Problem Recurrent major depression in remission (69337158) Recurrent major depressive disorder, in partial remission (F33.41) Active confirmed Problem Sciatica (66247110) Sciatic leg pain (M54.30) Active confirmed Problem Lymphedema (553886167) Lymphedema of left leg (I89.0) Active confirmed Problem Adult health examination (930855539) Healthcare maintenance (Z00.00) Active confirmed Problem Type II diabetes mellitus without complication (783174374) Type 2 diabetes mellitus without complication, without long-term current use of insulin (E11.9) Active confirmed Problem Primary hypertension (99724436) Primary hypertension (I10) Active confirmed Problem Tobacco use (034396829) Tobacco use disorder (F17.200) Active confirmed Problem Hyperlipidemia (28778436) Other hyperlipidemia (E78.49) Active confirmed Problem Primary osteoarthritis (418490704) Primary osteoarthritis involving multiple joints (M89.49) Active confirmed Problem Depression (801698255) Depression, unspecified (F32.A) Active confirmed Problem Tibial deformity , acquired (M21.969) Active confirmed Vital Signs Heart Rate 82 /min 12/19/2024 Temperature 98 degrees Fahrenheit 12/19/2024 Blood pressure diastolic 80 mm Hg 12/19/2024 Height 5 ft 6 in in 12/19/2024 Blood pressure systolic 125 mm Hg 12/19/2024 Weight 191 lbs 12/19/2024 BMI 30.82 kg/m2 12/19/2024 Encounters Encounter Location Date Provider Diagnosis [facility] [address] [facility] [address] [place] [address] 06/22/2024 Provider Migration COPD exacerbation J44.[address] [address] 05/07/2024 Elver Besarnold Hypertension, essential I10 ; Type 2 diabetes mellitus without complications E11.9 ; Anxiety disorder, unspecified F41.9 ; Depression, unspecified F32.A and Healthcare maintenance Z00.[address] [address] 06/11/2024 Elver James Lobar pneumonia J18. 1 ; COPD exacerbation J44.1 and Personal history of nicotine dependence Z87.[address] [address] 09/03/2024 Elver Besarnold Hypertension, essential I10 ; Type 2 diabetes mellitus without complications E11.9 ; Generalized anxiety disorder F41.1 ; Depression, unspecified F32.A ; Healthcare maintenance Z00.00 and Encounter for immunization Z23 [address] [address] 12/19/2024 Elver Erika Type 2 diabetes mellitus with other specified complication E11.69 ; Diabetic peripheral neuropathy associated with type 2 diabetes mellitus E11.42 ; Recurrent major depressive disorder, in partial remission F33.41 ; Primary hypertension I10 ; Other hyperlipidemia E78.49 ; Acute recurrent maxillary sinusitis J01.01 ; Personal history of nicotine dependence Z87.891 and Routine medical exam Z00.00 [facility] [address] [address] 12/30/2024 Elverparveen James Immunization(s) administered Z23 [facility] [address] [address] 03/01/2024 Elver Besson [facility] [facility] [place] [address] [place], [place] [address] 05/07/2024 Elver Besson [facility]12.31 [facility] [place] [address] [place] [address] 06/20/2024 Elverparveen James COPD exacerbation J44.1 [facility] [address] [address] 07/10/2024 Elver Besson [facility] [address] [address] 07/23/2024 Elver James Assessments Encounter Date Diagnosis (ICD Code) Assessment Notes Treatment Notes Treatment Clinical Notes Section Notes 05/07/2024 Hypertension, essential (ICD-10 - I10) BP well controlled, continue current regimen 05/07/2024 Breast cancer screening (ICD-10 - Z12.31) 06/11/2024 COPD exacerbation (ICD-10 - J44.1) Aggressive treatment with prednisone and dextromethorphan, 06/11/2024 Lobar pneumonia (ICD-10 - J18.1) Discussed the etiology and expected course of lobar pneumonia. Discussed the rationale for antibiotic and the importance of completing the prescription as prescribed. Continue supportive care with PRN antipyretics, OTC cough/cold meds, nasal saline rinses/Neti pot with distilled water, salt water gargles, cough drops, and humidifier. Encourage PO hydration. Discussed the signs and symptoms of worsening infection/respirato ry distress that may indicate need for reassessment in clinic/ED. Keep previously scheduled physical exam or f/u sooner PRN. Patient/family voices understanding and agree to this plan. Aggressive therapy given her lobar pneumonia and underlying COPD. 06/20/2024 COPD exacerbation (ICD-10 - J44.1) 06/22/2024 COPD exacerbation (ICD-10 - J44.1) 09/03/2024 Type 2 diabetes mellitus without complications (ICD-10 - E11.9) A1c 5.9 in April Continue current regimen 09/03/2024 Hypertension, essential (ICD-10 - I10) BP well controlled, continue current regimen 12/19/2024 Type 2 diabetes mellitus with other specified complication (ICD-10 - E11.69) I will order labs and review them. Continue current medication regime and will adjust if necessary 12/19/2024 Diabetic peripheral neuropathy associated with type 2 diabetes mellitus (ICD-10 - E11.42) Conitnue medications and will review lab work for diabetes 12/30/2024 Immunization(s) administered (ICD-10 - Z23) 12/19/2024 Recurrent major depressive disorder, in partial remission (ICD-10 - F33.41) Overall doing well on SNRI, very rare benzo use. No changes in plans 09/03/2024 Generalized anxiety disorder (ICD-10 - F41.1) Patient reports improvement in mood Continue current regimen 06/11/2024 Personal history of nicotine dependence (ICD-10 - Z87.891) Long discussion about trying to quit now that she is not feeling good today 05/07/2024 Type 2 diabetes mellitus without complications (ICD-10 - E11.9) last A1c: 5.9, continue current regimen 12/19/2024 Primary hypertension (ICD-10 - I10) Blood pressure normal. No changes 09/03/2024 Depression, unspecified (ICD-10 - F32.A) Patient notes improvement in mood, continue current regimen 12/19/2024 Other hyperlipidemia (ICD-10 - E78.49) Check lipid profile. 09/03/2024 Healthcare maintenance (ICD-10 - Z00.00) Received Prevnar 21 today, up to date with other vaccinations Up-to-date on screenings Functionally doing very well 05/07/2024 Anxiety disorder, unspecified (ICD-10 - F41.9) Mood stable, continue current regimen 05/07/2024 Depression, unspecified (ICD-10 - F32.A) No SI/HI, no acute concerns, continue current regimen 09/03/2024 Encounter for immunization (ICD-10 - Z23) 12/19/2024 Acute recurrent maxillary sinusitis (ICD-10 - [...] done because of active diagnosis. HRA reviewed, 05/20 word recall. is healthcare surrogate Vaccines up to date. Will come back for flu shot in a couple weeks when she feels better 05/07/2024 Healthcare maintenance (ICD-10 - Z00.00) mammogram due, will have patient set up for that today Plan Of Treatment Pending Test Test Name Order Date N-Stool C Difficile 08/29/2011 N-Stool Culture 08/29/2011 N-stool for giardia, crypto antigens, en teric pathogens 08/29/2011 Echocardiogram 06/24/2022 Echocardiogram 07/04/2012 N-stool enteric pathogens 08/29/2011 Physical Therapy 01/01/2019 Physical Therapy 04/09/2015 X ray : Rib Series 03/28/2008 NVC STUDY OF UPPER EXTREMITIES 0 Occupational Therapy : Eval & Treatment 01/01/2019 H-MISC TEST 02/06/2012 C-CMP 03/22/2018 C-LIPID PANEL 03/22/2018 C-TSH 03/22/2018 C-HGBA1C 03/22/2018 VENIPUNCT, ROUTINE* 12/24/2015 Physical Therapy : Lymphedema 06/09/2017 M-BUN & Creatinine 07/13/2018 M-Upper Respiratory Panel, PCR 0 M-Vitamin B12 08/04/2020 VITAMIN D,25-OH,TOTAL,IA [id number]) [phone] Next Appt Details Provider Name:Elver James, 03/04/2025 11:30:00 AM, [address] [place] [address], [place], [address], Insurance Providers Payer Name Payer Address Payer Phone Subscriber Number Group Number Insured Name Patient Relationship to Insured Coverage Start Date Coverage End Date [place] [address] [place] [phone] [id number] Salima Vu Self - patient is the insured [facility] CLAIMS [address] [place] [address] [id number] David Vu Spouse - patient is the spouse of the insured [employer] [address] [place] [address] [address] [place] [address] ACL Salima Vu Self - patient is the insured Medications Administered Medication Instructions Date of Administration Dosage Notes Ceftriaxone 500 05/31/2016 500 mg Ceftriaxone 500 03/17/2022 500 mg Ceftriaxone 500 06/11/2024 500 mg Dexamethasone 4mg Injection 06/11/2024 4 mg Kenalog 40mg 09/15/2016 40 mg Kenalog 40mg 02/06/2017 40 mg Kenalog 40mg 03/28/2017 40 mg Triamcinolone Acetonide 40mg Injection 04/16/2018 1 mL Triamcinolone Acetonide 40mg Injection 01/01/2019 1 mL Triamcinolone Acetonide 40mg Injection 02/01/2019 1 mL Kenalog 07/09/2014 1 Kenalog 05/31/2016 1 mL Medical (General) History Medical History History ICD Code allergies hypertension colonoscopy June 2013 with tubular adenoma - repeated 01/06 with isolated diminutive rectosigmoid polyp hypokalemia primary osteoarthritis knees bilateral Tobacco abuse Pneumonia - 06/2016 Normal DEXA 04/08 Normal LDCT 04/08 - repeat on year - repeated in 04/09 and again normal. Repeated 05/2021 and stable - also stable in 06/09 Normal mammogram 08/07 and 09/2021 and 10/19 and 06/11 Murmur with echo 12/11 - trace/mild aorti c stenosis o/w normal Surgical History Surgery Date(Month/Year) right knee replacement cardiac cath 2014 left knee-meniscus repair 2015 left knee total replacement 2022 cataract removal Hospitalization History Reason Date(Month/Year) [facility] following LT Total Knee Replacement 2022
--- OUTSIDE RECORDS SUMMARY | 2025-01-21 12:47 | XMS_ITS | Clinical Summary ---
Author Organization [facility] ([place], [place], [place], [place], [place]) Address [address] [place] [address] Care Team Providers Care Nutrition Faculty Member Name Role Phone Elver James MD Primary Care Provider + [phone] Abad Baird PA-C Unavailable [phone] Allergies Active Allergy Reactions Criticality Noted Date Comments Clindamycin 06/23/2022 Other reaction(s): profuse diarrhea 1severe diarrhea Medications cyanocobalamin (VITAMIN B-12) 1000 MCG tablet 1 tab(s) orally once a day Active fexofenadine (TEDDY) 180 MG tablet 1 tab(s) orally once a day Active Viibryd 40 mg tablet Take 1 tablet (40 mg total) by mouth in the morning. 3 Active pravastatin (PRAVACHOL) 40 MG tablet Take 1 tablet (40 mg total) by mouth in the morning. 3 Active Anoro Ellipta 62.5-25 mcg/actuation DsDv 1 puff in the morning. 3 Active urea 40 % Lotn Apply topically. 3 Active nebivoloL (BYSTOLIC) 5 MG tablet Take 1 tablet (5 mg total) by mouth in the morning. 3 Active multivitamin capsule 1 cap(s) orally once a day Active Myrbetriq 50 mg Tb24 ER tablet Take 1 tablet (50 mg total) by mouth in the morning. 3 Active metFORMIN (GLUCOPHAGE) 500 MG tablet Take 1 tablet (500 mg total) by mouth in the morning and 1 tablet (500 mg total) before bedtime. 3 Active hydrOXYzine (VISTARIL) 25 MG capsule Take 1 capsule (25 mg total) by mouth daily as needed. 3 Active fluticasone propionate (FLONASE) 50 mcg/actuation nasal spray 1 spray in the morning. 3 Active Jardiance 25 mg tablet Take 1 tablet (25 mg total) by mouth in the morning. 3 Active clonazePAM (KlonoPIN) 0.5 MG tablet Take 1 tablet (0.5 mg total) by mouth in the morning and 1 tablet (0.5 mg total) before bedtime. 3 Active ciclopirox (PENLAC) 8 % solution daily. 3 Active pyridoxine, vitamin B6, (B-6) 100 MG tablet 1 tab(s) orally once a day Active vitamin E 100 unit/0.25 mL Drop 1 tab(s) orally once a day Active albuterol sulfate (Proair Digihaler) 90 mcg/actuation aebs USE 2 INHALATIONS FOUR TIMES A DAY for 90 days Active omeprazole (PriLOSEC) 20 MG capsule Take 1 capsule (20 mg total) by mouth in the morning. Active promethazine-DM (PROMETHAZINE-D M) 6.25-15 mg/5 mL syrup 5 mL orally every 6 hours for 10 days 5 Active Active Problems Problem Noted Date Diagnosed Date Post-operative state 07/05/2022 Painful total knee replacement, left 07/04/2022 Hypertension Diabetes mellitus Overview (07/04/2022): type 2 COPD (chronic obstructive pulmonary disease) High cholesterol Acid reflux Encounters Date Type Department Care Team Description 10/23/2024 1:00 PM EDT Office Visit [facility] Orthopedics - [facility] [address] [place] [id number] Abad Baird PA-C Bilateral carpal tunnel syndrome (Primary Dx) from Last 3 Months Family History Medical History Relation Name Comments Arthritis Other Cancer Other Heart disease Other High blood pressure Other Relation Name Status Comments Other Social History Tobacco Use Types Packs/Day Years Used Date Smoking Tobacco: Every Day Cigarettes 0.5 50 Smokeless Tobacco: Never Tobacco Cessation:Ready to Q uit: Not Asked; Counseling Given: Not Answered Alcohol Use Standard Drinks/Week Comments Never 0 (1 standard drink = 0.6 oz pur e alcohol) PRAPARE - Transportation Answer Date Re corded In the past 12 months, has l ack of transportation kept you from medical appointments or from getting medications? No 07/04/2022 Lack of Transportation (Non-Medical) Not on file 07/04/2022 Family and Community Support Answer Tho e Recorded Help with Day to Day Activities Not on file 04/07/2023 Feeling Lonely or Isolated Not on file 04/07 Educational Attainment Answer Date Lawrence rded Speak language other than Czech at home Not on file 04/07/2023 Want help with school or training Not on file 04/07/2023 Substance Use Answer Date Recorded Used prescription meds for non-medical reasons N ot on file 04/07/2023 Used illegal drugs past 12 months Not on file 04/07/2023 Comments Unknown Sex and Gender Information Value Date Recorded Sex Assigned at Not on file Legal Sex Female 4:07 PM CDT Gender Identity Female 07/04/2022 4:18 PM CDT Sexual Orientation Not on file Last Filed Vital Signs Vital Sign Reading Time Taken Comments Blood Pressure 116/75 10/23/2024 1:02 PM EDT Pulse 71 10/23/2024 1:02 PM EDT Temperature 36.6 C (97.9 F) 07/05/2022 9:20 AM EDT Respiratory Rate 17 07/05/2022 9:20 AM EDT Oxygen Saturation 99% 07/05/2022 9:20 AM EDT Inhaled Oxygen Concentration - - Weight 83.9 kg (185 lb) 10/23/2024 1:02 PM EDT Height 167.6 cm (5' 6 ) 10/23/2024 1:02 PM EDT Body Mass Index 29.86 10/23/2024 1:02 PM EDT Plan of Treatment Upcoming Encounters Date Type Department Care Team (Late st Contact Info) Description 01/27/2025 1:00 PM EST Office Visit [facility] Orthopedics - [address] [place] [address] Abad Baird PA-C [address] [facility] [address] [place] [address] Health Maintenance Due Date Last Done Comments Medicare Initial AWV G0438 CT Colonography 1955 Colonoscopy 1953 Colorectal Cancer Screening 1953 DXA SCAN 1953 Diabetic Kidney Health Evalu ation (KED) 1953 FOBT/FIT 1953 Fit-DNA (Cologuard) 1953 Sigmoidoscopy 1953 Diabetic Eye Exam 06/11/1963 Depression Screening (12+) 1965 Tobacco Cessation Counseling and Screening (12+) 1965 Hepatitis C Screening 06/11/1971 DTAP/TDAP/TD VACCINES (1 - Tdap) 1972 Breast Cancer Screening 1993 Lung Cancer Screening 06/11/2003 Shingles Vaccine (Zoster) (1 of 2) 06/11/2003 Respiratory Syncytial Virus (RSV) Adult or (1 - Risk 60-74 years 1-dose series) 2013 Hemoglobin A1C 01/03/2023 07/04/2022 Falls Risk Screening 03/20/2024 COVID-19 VACCINE (3 - 2024- season) 2024, 05/14/2020 Influenza Vaccine (#1) 2024 , 12/24/2019, 01/01/2019 Pneumococcal 50+ years Completed , 02/26/2019, 08/04/2016 Medical Devices Implanted Type Area Accounts Receivable Associate Device Identifier Shelf Expiration Date Model / Serial / Lot Cement Bone Calpine Hv 40/20 600-15-000 - [id number] Implanted:Qt y: 4 on 07/04/2022 by Jesu Lizarraga MD at [facility] IMPLANTS Left: Knee DJ SURG:ENCORE MED:SHAYETANOOGA [id number] 11/11/2023 600-15-00 0 / [id number] / [id number] [address] Tril 6.5x30mm 86-9669-146- 30 - [id number] Implanted:Qt y: 1 on 07/04/2022 by Jesu Lizarraga MD at [facility] TOTAL JOINT CONSTRUCT Left: Knee BEATRICE:BEATRICE US 10/13/2031-6250-0 65-30 / 00-6250-0 65-30 / [id number] Ty Tib I-Beam Fix Biomet 71mm [id number] - [id number] Implanted:Qt y: 1 on 07/04/2022 by Jesu Lizarraga MD at [facility] TOTAL JOINT CONSTRUCT Left: Knee BIOMET 05/10/2032 [id number] / [id number] / [id number] Comp Fem Ps Vangrd 62.5 L [id number] - [id number] Implanted:Qt y: 1 on 07/04/2022 by Jesu Lizarraga MD at [facility] TOTAL JOINT CONSTRUCT Left: Knee BIOMET [id number] 05/17/2032 [id number] / [id number] / [id number] Bearing Tib Ps 40dpt26/75 [id number] - [id number] Implanted:Qt y: 1 on 07/04/2022 by Jeus Lizarraga MD at [facility] TOTAL JOINT CONSTRUCT Left: Knee BIOMET ORTHO [id number] 10/01/2023 [id number] / [id number] / [id number] Patella Thin 31x6.2mm [id number] - [id number] Implanted:Qt y: 1 on 07/04/2022 by Jesu Lizarraga MD at [facility] TOTAL JOINT CONSTRUCT Left: Knee BIOMET [id number] 04/20/2027 [id number] / [id number] / [id number] Procedures Procedure Name Priority Date/Time Associated Diagnosis Comments FS_[facility]_MODEL GENERAL FORM Routine 10/23/2024 1:07 PM EDT Bilateral carpal tunnel syndrome HEMOGLOBIN A1C Routine 07/04/2022 6:30 PM EDT from Last 3 Months or Most Recently Relevant to Health Maintenance Results * Bilateral CT injections (10/23/2024 1:07 PM EDT) Abad Brown PA-C - 10/23/2024 1:07 PM EDT Abad Baird PA-C 10/23/2024 1:[address] injections Date/Time: 10/23/2024 1:07 PM Performed by: Abad Baird PA-C Authorized by: Abad Baird PA-C Consent: Consent obtained: Verbal and written Consent given by: Patient Risks, benefits, and alternatives were discussed: yes Risks discussed: Bleeding, infection, pain, incomplete drainage, nerve damage and poor cosmetic result [place] protocol: Procedure explained and questions answered to patient or proxy's satisfaction: yes Relevant documents present and verified: yes Test results available: yes Imaging studies available: yes Site/side marked: yes Immediately prior to procedure, a time out was called: yes Patient identity confirmed: Verbally with patient Indications: Indications: Carpal Tunnel Syndrome Pre-procedure details: Preparation: Patient was prepped and draped in the usual sterile fashion Sedation: Sedation type: None Anesthesia: Anesthesia method: Topical application Procedure specific details: Bilateral Carpal Tunnel injections today. We discussed conservative treatment with Kenalog injections which can take several days for effect. Transient numbness in the hand was discussed post injection which will resolve in a few hours. Each hand was laid in the supine position. 1 ml of 1% Lidocaine and Kenalog 10mg were injected ulnar to the palmaris longus tendon (in the soft indentation of the volar wrist) after the skin was prepped with adequately with alcohol. A sterile bandaid was applied. Post-procedure details: Procedure completion: Tolerated well, no immediate complications Abad Baird PA-C PROCEDURE/MINOR SURGICAL ORDE MARISSA Final Result * Hemoglobin A1c (07/04/2022 6:30 PM EDT) Hemoglobin A1C 5.5 4.2 - 6.3 % 07/04/2022 7:42 PM EDT [facility] Comment: Hemoglobin A1C levels are related to mean glucose during the preceding 2-3 months. Less than 7% demonstrates glycemic control in diabetic patients. Hemoglobin AlC % Suggested Diagnosis > or = 6.5 Diabetic 5.7 - 6.4 Prediabetic <5.7 Non-diabetic eAVG Glucose 111.15 mg/dL 07/04/2022 7:42 PM EDT [facility] Blood Venipuncture / Unknown 07/04/2022 6:30 PM EDT 07/04/2022 7:21 PM EDT Oneil Poole MD LAB BLOOD ORDERABLES Final Result [facility] [address] [place] [id number] [phone] from Last 3 Months or Most Recently Relevant to Health Maintenance Insurance MEDICARE PART A B Advance Directives For more information, please contact: [phone] * Full Code (Latest Code Status on File) Date Activated Date Inactivated Comments 07/04/2022 4:15 PM 07/05/2022 1:42 PM * Full Code Date Activated Date Inactivated Comments 07/04/2022 10:15 AM 07/04/2022 4:15 PM Care Teams Nutrition Faculty Member Relationship Specialty Start Date End Date lEver James MD [address] [place] [address] [place] [address] PCP - General Adolescent Medicine 06/08/22 Abad Baird PA-C [address] [place] [address] Physician Clinical Rehabilitation Liaison Orthopedic Surgery 07/22/24
--- OUTSIDE RECORDS SUMMARY | 2025-01-21 12:47 | XMS_ITS | Clinical Summary ---
Author Organization Healthcare Address [address] [place] [address] Care Team Providers Care Flow Nurse Name Role Phone Elver James MD Primary Care Provider [phone] Social History Tobacco Use Types Packs/Day Years Used Date Smoking Tobacco: Never Comments Unknown Sex and Gender Information Value Date Recorded Sex Assigned at Female 08/12/2023 1:27 PM EDT Legal Sex Female 6:31 PM EDT Gender Identity Female 08/12/2023 1:27 PM EDT Sexual Orientation Choose not to disclose 2023 1:27 PM EDT Last Filed Vital Signs Vital Sign Reading Time Taken Comments Blood Pressure 137/76 05/13/2019 3:37 PM EST Pulse 82 05/13/2019 3:37 PM EST Temperature - - Respiratory Rate - - Oxygen Saturation - - Inhaled Oxygen Concentration - - Weight 104 kg (228 lb 15.9 oz) 05/13/2019 3:37 P M EST Height 162.6 cm (5' 4 ) 05/13/2019 3:37 PM EST Body Mass Index 39.31 05/13/2019 3:37 PM EST Plan of Treatment Upcoming Encounters Date Type Department Care Team (Late st Contact Info) Description 07/29/2025 3:30 PM EDT Ovarian Cancer Screening [facility] [address] [facility] [place] [address] Health Maintenance Due Date Last Done Comments [facility]-Bone Density Scan 1953 [facility]-Depression Screening 1953 [facility]-Hepatitis C Screening 1953 [facility]-Medicare Annual Wellness (AWV) 1953 [facility]-Infant/Child/Adol SDOH Screenings 1953 [facility]- SDOH Screenings 06/11/1971 [facility]-Adult SDOH Screenings 06/11/1971 [facility]-DTaP,Tdap,and Td Vaccines (1 - Tdap) 1972 CT Colonography 1998 Colonoscopy 1998 FIT-DNA 1998 FIT 1998 FOBT 1998 Sigmoidoscopy 1998 [facility]-Colorectal Cancer Screening 1998 [facility]-Breast Cancer Screening 06/11/2003 [id number] Vaccine (3 - 2024- season) 2024 06/11/2020, 05/14/2020 [facility]-Influenza Vaccine (#1) 11/18/202401/08, 12/01/2022, 11/10/2020, Additional history exists [facility]-RSV Vaccine: 60+ Years or (1 - 1-dose 75+ series) 2028 [facility]-Zoster Vaccines Completed 02/01/2023, [facility]-Pneumococcal Vaccine: 50+ Years Completed 09/03/2024, 03/20/2020, 02/26/2019, Additional history exists HPV Vaccines Aged Out No longer eligi ble based on patient's age to complete this topic [facility]-HIB Vaccines Aged Out No longer e ligible based on patient's age to complete this topic [facility]-Hepatitis A Vaccines Aged Out No longer eligible based on patient's age to complete this topic [facility]-IPV Vaccines Aged Out No longer e ligible based on patient's age to complete this topic [facility]-Rotavirus Vaccines Aged Out No lo nger eligible based on patient's age to complete this topic [place] [id number] Care Teams Flow Nurse Relationship Specialty Start Date End Date Elver James MD [address] [place] [address] PCP - General 07/31/20
--- OUTSIDE RECORDS SUMMARY | 2025-01-21 12:48 | XMS_ITS | Referral Summary ---
Author Organization [employer] ([place], [place], [place], [place], [place]) Address [address] [place] [address] Care Team Providers Care Spin Table Operator Name Role Phone Elver James MD Primary Care Provider [phone] Abad Baird PA-C Unavailable [phone] Encounters Date Type Department Care Team Description 10/23/2024 1:00 PM EDT Office Visit [facility] Orthopedics - [address] [place] [address] Abad Baird PA-C Bilateral carpal tunnel syndrome (Primary Dx) from Last 3 Months Allergies Active Allergy Reactions Criticality Noted Date [...] obstructive pulmonary disease) High cholesterol Acid reflux Social History Tobacco Use Types Packs/Day Years [...] Date Lawrence rded Speak language other than Portuguese at home Not on file 04/07/2023 Want [...] Description 01/27/2025 1:00 PM EST Office Visit [facility] Orthopedics - [facility] [address] [place] [address] Abad Baird PA-C [address] [facility] [address] [place] [address] Medical Devices Implanted Type Area Band Ripsaw Operator Device Identifier Shelf Expiration Date Model / Serial / Lot Cement Bone [place] Hv 40/20 600-15-000 - [id number] Implanted:Qt y: 4 on 07/04/2022 by Jesu Lizarraga MD at [facility] IMPLANTS Left: Knee DJ SURG:ENCORE MED:[id number] 11/11/2023 600-15-00 0 / [id number] / [id number] Tril 6.5x30mm 43-1161-413- 30 - [id number] Implanted:Qt y: 1 on 07/04/2022 by Jesu Lizarraga MD at [facility] TOTAL JOINT CONSTRUCT Left: Knee BEATRICE:BEATRICE 10/13/2031-6250-0 6530 / [id number] Ty Tib I-Beam Fix Biomet 71mm 045549 - [id number] Implanted:Qt y: 1 on 07/04/2022 by Jesu Lizarraga MD at [facility] TOTAL JOINT CONSTRUCT Left: Knee BIOMET 05/10/2032 [id number] / [id number] / [id number] Comp Fem Ps Vangrd 62.5 L 664931 - [id number] Implanted:Qt y: 1 on 07/04/2022 by Jesu Lizarraga MD at [facility] TOTAL JOINT CONSTRUCT Left: Knee BIOMET [id number] 05/17/2032 [id number] / [id number] / [id number] Bearing Tib Ps 85dfp74/75 [id number] - [id number] Implanted:Qt y: 1 on 07/04/2022 by Jesu Lizarraga MD at [facility] TOTAL JOINT CONSTRUCT Left: Knee BIOMET ORTHO [id number] 10/01/2023 [id number] / [id number] / [id number] Patella Thin 31x6.2mm 408201 - [id number] Implanted:Qt y: 1 on 07/04/2022 by Jesu Lizarraga MD at [facility] TOTAL JOINT CONSTRUCT Left: Knee BIOMET [id number] 04/20/2027 [id number] / [id number] / [id number] Procedures Procedure Name Priority Date/Time Associated Diagnosis [...] drainage, nerve damage and poor cosmetic result [place] protocol: Procedure explained and questions answered to [...] Procedure completion: Tolerated well, no immediate complications us Abad Brie PA-C PROCEDURE/MINOR SURGICAL ORDE MARISSA Final Result * Hemoglobin A1c (07/04/2022 6:30 PM EDT) Hemoglobin A1C 5.5 4.2 - 6.3 % 07/04/2022 7:42 PM EDT [facility] Comment: Hemoglobin A1C levels are related to mean glucose during the preceding 2-3 months. Less than 7% demonstrates glycemic control in diabetic patients. Hemoglobin AlC % Suggested Diagnosis > or = 6.5 Diabetic 5.7 - 6.4 Prediabetic <5.7 Non-diabetic eAVG Glucose 111.15 mg/dL 07/04/2022 7:42 PM EDT [facility] Blood Venipuncture / Unknown 07/04/2022 6:30 PM EDT 07/04/2022 7:21 PM EDT us Oneil Poole MD LAB BLOOD ORDERABLES Final Result Performing Organization Address City/State/RUST Co de Phone Number [facility] [address] [place] [address] from Last 3 Months or Most Recently Relevant to Health Maintenance Insurance MEDICARE PART A B Advance Directives For more information, please contact: [phone] * Full Code (Latest Code Status on File) Date Activated Date Inactivated Comments 07/04/2022 4:15 PM 07/05/2022 1:42 PM * Full Code Date Activated Date Inactivated Comments 07/04/2022 10:15 AM 07/04/2022 4:15 PM Care Teams Spin Table Operator Relationship Specialty Start Date End Date Elver James MD [address] [place] [address] PCP - General Adolescent Medicine 06/08/22 Abad Baird PA-C [address] [facility] [address] [place] [address] Physician Mask Former Orthopedic Surgery 07/22/24
== END 2025-01-21 23:59 | disposition home or self-care (01) ==
LOC: RT 12:43
PROVIDERS: PCP Internal Medicine Adolescent Medicine; Visit Provider Internal Medicine Pulmonary Disease
DX: R94.2 Abnormal results of pulmonary function studies (principal); R06.02 Shortness of breath; R06.09 Other forms of dyspnea
CPT/HCPCS: 94010; 94618

== ENCOUNTER 2025-03-03 13:24 | Outpatient (CLI) | payer MEDICARE, OTHER, SELFPAY ==
--- NOTE | 2025-03-03 13:32 | CA_ITS ---
APPROVED REPORT EXAM: Comprehensive 2D, Doppler, and color-flow Echocardiogram College Intern: Grace Forrester RVT Ht: 5 ft 6 in Wt: 196lbs BSA: 1.98 BP: 137/73 mmHg Indications: MURMUR 2D Dimensions IVSd 0.77 cm F: 0.6-1.0 LVEF (Visual) 57.20 % PWd 1.00 cm F: 0.6 - 1.0 LA Volume 23.80 mL LVDd 3.67 cm F: 3.9 - 5.3 LA Volume Index 12.02 mL/m2 (M/F) 16-34 LVDs 2.59 cm F: 2.2 - 3.5 M-Mode Dimensions RVDd 2.22 cm (0.9-2.6) LA Diam 2.85 cm (1.9-4.0) LVDd 5.08 cm (3.5-5.7) IVSd 0.97 cm (0.6-1.1) PWd 0.64 cm (0.6-1.1) EDV (Teich) 122.70 mL TAPSE 2.38 (<1.7) LV Diastology E Decel Time 180 (160-240 msec) E/A Ratio 0.6 Aortic Valve PAN Index 0.55 cm2/m2 AoV Peak Alon. 331.0 (50-130 cm/s) AO Peak GR. 43.90 mmHg AO Mean GR. 25.00 (<5 mmHg) AO VTI 69.0 (18-25 cm) PAN (VTI) 1.11 (2.5-4.5 cm2) Mitral Valve MV E Max Alon. 58.0 (40-130 cm/s) MV A Velocity 91.0 (40-130 cm/s) E/A Ratio 0.64 MV PHT 53.0 ms Pulmonary Valve PV Peak Velocity 83.0 (50-150 cm/s) Left Ventricle The left ventricle is normal size. Left ventricular systolic function is normal. The left ventricular ejection fraction is within the normal range. There is increased left ventricular wall thickness. There is normal LV segmental wall motion. Transmitral Doppler flow pattern suggests impaired LV relaxation. LVEF is 60% Right Ventricle The right ventricle is mildly dilated. The right ventricular systolic function is normal. Atria Left atrium is mildly dilated. Right atrium is mildly dilated. There is no color Doppler evidence of interatrial shunt. Aortic Valve The aortic valve is moderately thickened. Moderate aortic stenosis present. Peak velocity 3.3 m/s. Mean AV gradient 25 mmHg. Max AV gradient 45 mmHg. PAN by continuity equation is 1.2 cm???. Mild aortic regurgitation is present. Mitral Valve The mitral valve is normal in structure. No evidence of mitral valve stenosis. Mild mitral regurgitation is present. Tricuspid Valve The tricuspid valve leaflets are thin and pliable. Trace tricuspid regurgitation. There is insufficient TR jet to estimate RVSP. Pulmonic Valve The pulmonary valve is grossly normal in structure. Trace pulmonic valve regurgitation is present. Great Vessels The aortic root is normal in size. IVC is normal in size and collapses >50% with inspiration. Pericardium There is no pericardial effusion. Other Information Study Quality: Fair Conclusion Normal biventricular systolic function. Mild RV dilation. Mild biatrial dilation. Moderate (peak velocity 3.3 m/s. Mean AV gradient 25 mmHg. Max AV gradient 45 mmHg. PAN by continuity equation is 1.2 cm???). Mild MR, mild AI. Electronically signed by : Gudelia No MD 03/04/2025 12:19:13
== END 2025-03-03 23:59 | disposition home or self-care (01) ==
LOC: RT 13:24
PROVIDERS: PCP Internal Medicine Adolescent Medicine; Visit Provider Internal Medicine Adolescent Medicine
DX: I08.0 Rheumatic disorders of both mitral and aortic valves (principal)
CPT/HCPCS: 93306